=== PATIENT | male | born 1950 | race Caucasian/White ===

== ENCOUNTER 2023-08-02 13:50 | Outpatient (RCR) | payer MEDICARE, SELFPAY ==
--- NOTE | 2023-08-02 15:51 | PT.OPEX ---
PT [place] Outpatient Eval PT [facility] Outpatient Eval Start: 08/02/23 15:19 Freq: Status: Active Protocol: Document 08/02/23 15:19 CONSTANTINO (Rec: 08/02/23 15:33 CONSTANTINO [id number]) E-signed By Rosemary Garcia DPT Physical Therapy Outpatient Evaluation Insurance Information Recert Due Date 10/31/23 Insurance Name Medicare B,[facility] Medical Diagnosis L hip OA L JEFRY scheduled for 08/11/23 Treating Diagnosis L hip pain, impaired L hip ROM , impaired L hip/LE mobility/ strength, limping/antalgic gait Subjective Subjective Patient reports chronic L hip pain since last Nov leading to L JEFRY scheduled for 08/11/23. Patient reports L hip/thigh pain with movement of L hip, lifting L LE. He is not using an AD for walking. Reports increased pain with stairs but he is able to perform them with reciprocal pattern. Pain range 0-5/10. States his has had multiple joint replacements including both hips and both knees so they already have the equipment needed. Patient reports having FWW, crutches, cane to use after surgery. They also have commode chair, shower chair, acid bleacher, sock aid. There is a ramp to enter the home. Once inside he is planning to stay on the main level until he is moving better to perform stairs to the bedroom. Bathroom on the main level has a walk in shower. Date of Last Physician Visit 06/21/23 Date of Surgery (If applicable) 08/11/23 Current Work Status Retired Assessment Assessment/Impression Patient is a 73 year old male with L hip pain, impaired L hip ROM, impaired L hip/LE mobility/strength, limping/ antalgic gait leading to L JEFRY scheduled for 08/11/23. Patient seen in PT today for pre-op session to provide education/information on upcoming JEFRY surgery, safety information/HO, equipment instruction including use of FWW, and instruction in JEFRY exercises. Handouts issued for exercises, patient to perform them leading up to surgery. Reviewed PT/OT plan during hospital stay and patient is scheduled for OP PT post op in [place]. Patient reports having a FWW, crutches, and a cane for use after surgery. He also has a commode chair, shower chair, acid bleacher, and sock aid from his previous joint replacement surgeries. Patient reports a ramp to enter the home. Once inside he can stay on the main level until he is moving better to do stairs to the bedroom. Bathroom on the main level has a walk in shower. Spouse is available to assist as needed after surgery. Patient was seen today for pre-op session only. He is scheduled for post op rehab in [place]. No further PT scheduled at this clinic. Plan of Care Rehabilitation Potential Good Physical Therapy Goals 1. Patient will be educated in JEFRY pre/post-op safety, mobility, and exercises with HOs provided within one visit with patient going to post op rehab in [place] after L JEFRY surgery on 08/11/23. Coordination/Communication With Referral Source Treatment Plan/Direct Interventions Therapeutic Exercises Frequency/Duration one JEFRY pre-op session Patient is scheduled for JEFRY post op rehab in [place]. Patient Will Be Discharged From Therapy Completion of LTG(s),Skills Plateau,Independent w/HEP, Independently Progressing Evaluation Billing Untimed Code Treatment Minutes 32 Complexity Low Certification Information Initial Certification Date 08/02/23 Ending Certification Date 10/31/23 Provider Signature Shows Agreement With POC & Medical Necessity Physician Signature & Date Requested Please Sign/Date Here Physician Comment/Change : Physician NPI Number #
== END 2023-11-30 23:59 | disposition home or self-care (01) ==
PROVIDERS: PCP Family Medicine; Visit Provider Orthopaedic Surgery Sports Medicine
DX: M16.12 Unilateral primary osteoarthritis, left hip (principal); M25.552 Pain in left hip; R26.89 Other abnormalities of gait and mobility; Z74.09 Other reduced mobility; R29.898 Other symptoms and signs involving the musculoskeletal system; Z51.89 Encounter for other specified aftercare
CPT/HCPCS: 97161

== ENCOUNTER 2023-11-03 07:55 | Day surgery (SDC) | payer MEDICARE, SELFPAY ==
[2023-11-03] VITALS (30 sets, daily range): BP systolic 71–133; BP diastolic 41–84; PULSE 56–82; RESP 12–18; TEMP 35.6–36.7; O2SAT 94–100; BMI 28.2
--- OUTSIDE RECORDS SUMMARY | 2023-11-03 07:58 | XMS_ITS | Clinical Summary ---
Author Name Unknown [facility] Address [address] [place] [address] Care Team Providers Care Sexual Assault Social Worker Name Role Phone Hector Sandhu MD Primary Care Provider [phone] Source Comments You are receiving this document as you are listed as the primary care provider,follow-up provider, or the patient has been referred to you for consultation.This is in compliance with the Medicare and[facility] EHR Incentive Program,which states Providers who transition their patient to another setting of careor provider of care or refers their patient to another provider of care shouldprovide summary care record for each transition of care or referral. [facility] Allergies Active Allergy Reactions Criticality Noted Date Comments Bee Venom Medications Medication Sig Dispensed Refills Start Date End Date Status EPINEPHrine (EPIPEN) 0.3 MG/0.3ML JORDAN injection Inject 0.3 mL intramuscularly once as needed for 1 dose. into thigh as directed for and/or potential for an allergic reaction 2 Each 1 03/25/2011 Active aspirin 325 MG tablet Take 325 mg by mouth every 6 hours as needed. Active Ibuprofen 200 MG capsule Take 400 mg by mouth. 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 05/01/2005 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 Overview: Other testicular hypofunction (HRC) Immunizations Name Administration Dates Next Due Flu Vac (3+ yrs) 05/17/2012, 1,05/10/2003, 001,05/18/2000 Influenza IIV4 (Quadrivalent ) 0.5mL (16713) 03/20/2013 Pfizer Monovalent 12+ Purple Top 09/13/2020,08/05 Td 07/30/1993 Tdap 03/23/2006 Varicella 07/22/1999(Deferred: Immune by Erwin cuellar) Family History Medical History Relation Name Comments Cancer, Other Father Cancer, Prostate Father 76 Hearing Loss Father Cataract Mother Hypertension Mother Alcohol/Drug Abuse Brother 2 Hypertension Brother 2 Retinal Detachment Brother 2 Heart disorder Maternal Grandmother Cataract Sister Glaucoma Negative Family History Relation Name Status Comments Father Mother Alive Brother 1 Alive Brother 2 Daughter Alive Maternal Grandmother Sister Alive Son Alive Social History Tobacco Use Types Packs/Day Years Used Date Smoking Tobacco: Never Smokeless Tobacco: Never Alcohol Use Standard Drinks/Week Comments Yes 5.8 (1 standard drink = 0.6 oz p ure alcohol) occasional Sex and Gender Information Value Date Recorded Sex Assigned at Not on file Gender Identity Not on file Sexual Orientation Not on file Last Filed Vital Signs Vital Sign Reading Time Taken Comments Blood Pressure 126/77 05/01/2019 10:04 AM CDT Pulse 54 05/01/2019 10:04 AM CDT Temperature 36.6 ??C (97.8 ??F) 11/08/2013 1:38 PM CD T Respiratory Rate 14 05/17/2012 8:18 AM TEASELER Oxygen Saturation 99% 05/17/2012 8:18 AM TEASELER Inhaled Oxygen Concentration - - Weight 107.5 kg (237 lb) 05/01/2019 10:04 AM CDT Height 188 cm (6' 2) 04/26/2018 10:03 AM CDT Body Mass Index 30.43 04/26/2018 10:03 AM CDT Plan of Treatment Health Maintenance Due Date Last Done Comments Hep C Screening (Preventive Services) 1950 Medicare Annual Wellness Visit 1950 Zoster/Shingles (1 of 2) 1999 Cholesterol 12/08/2016 12/09/2011, 07/07, 05/10/2003, Additional history exists Colonoscopy 06/16/2017 06/16/2012, 06/16/2012 COVID-19 Vaccine ( season) 2023 09/13/2020, 08/23/2020 Influenza (#1) 2023 05/16/2020, 04/05, 05/27/2018, Additional history exists DTaP/Tdap/Td (3 - Tdap) 04/26/2027 04/26/20 17, 03/23/2006, 07/30/1993 Pneumococcal 65+ Yrs Completed 04/28/2016, 03/13/20 15 HepA Aged Out No longer eligi ble based on patient's age to complete this topic HepB Aged Out No longer eligi ble based on patient's age to complete this topic Hib Aged Out No longer eligi ble based on patient's age to complete this topic IPV (Polio) Aged Out No longer eligi ble based on patient's age to complete this topic MCV4 Aged Out No longer eligi ble based on patient's age to complete this topic Medical Devices Implanted Type Area [place] [employer] Device Identifier Shelf Expiration Date Model / Serial / Lot Plug Heria [employer] Perfix 1.6 - [id number] Implanted:Qty: 1 on 04/05/2006 at [facility] Right: [employer] [id number] / / [id number] Plug Heria [employer] Perfix 1.6 - [id number] Implanted:Qty: 1 on 04/05/2006 at [facility] Left: [employer] [id number] / / [id number] Procedures Procedure Name Priority Date/Time Associated Diagnosis Comments COLONOSCOPY Routine 06/16/2012 9:40 AM TEASELER Screen for colon cancer LIPID PANEL & DIRECT LDL (IF NEEDED) Routine 12/09/2011 9:59 AM CDT Screening cholesterol level from Last 3 Months or Most Recently Relevant to Health Maintenance Results * COLONOSCOPY [[id number]] (06/16/2012 9:40 AM TEASELER) 06/16/2012 9:40 AM TEASELER Narrative GI ([facility]) - 06/16/2012 10:27 AM TEASELER Indications: ? Screening for colorectal malignant neoplasm Providers: ? Sonny Medina MD, Bruna Hastings RN Referring MD: ?Ovidio Gray MD Medicines: ? Fentanyl IV 100 mcgs, Versed/Midazolam IV 2 mgs Complications: ? No immediate complications. Procedure: ? Pre-Anesthesia Assessment: ? - Prior to the procedure, a History and Physical was ? performed, and patient medications, allergies and ? sensitivities have been reviewed. The patient's ? tolerance of previous anesthesia has been reviewed. ? - The risks and benefits of the procedure and the ? sedation options and risks were discussed with the ? patient. All questions were answered and informed ? consent was obtained. ? - ASA Grade Assessment: II - A patient with mild ? systemic disease. ? After I obtained informed consent, the scope was ? passed under direct vision. Prior to sedation, ? patient identity and procedure was reverified. ? Throughout the procedure, the patient's blood ? pressure, pulse, and oxygen saturations were ? monitored continuously. The Colonoscope was ? introduced through the anus and advanced to the ? cecum, identified by appendiceal orifice & ileocecal ? valve. The colonoscopy was performed without ? difficulty. The patient tolerated the procedure well. ? The quality of the bowel preparation was good. Findings: ? The digital rectal exam was abnormal. Findings include non-thrombosed ? external hemorrhoids. A sessile polyp was found in the cecum. The ? polyp was 6 mm in size. The polyp was removed with a cold snare. ? Resection and retrieval were complete. Two benign appearing sessile ? polyps were found in the rectum and in the descending colon. The ? polyps were 3 to 4 mm in size. These polyps were removed with a cold ? biopsy forceps. Resection and retrieval were complete. The ? retroflexed view of the distal rectum and anal verge was normal and ? showed no anal or rectal abnormalities. Impression: ?- Rectal exam revealed non-thrombosed external ? hemorrhoids. ? - One 6 mm polyp in the cecum. Resected and retrieved. ? - Two benign appearing 3 to 4 mm polyps in the rectum ? and in the descending colon. Resected and retrieved. ? - The distal rectum and anal verge are normal on ? retroflexion view. Recommendation: ?- Await pathology results. ? - High fiber diet. ? - Repeat colonoscopy in 3 - 5 years for surveillance ? based on pathology results. Procedure Code(s): ?? --- Professional --- ? 61507, Colonoscopy, flexible, proximal to splenic ? flexure; with removal of tumor(s), polyp(s), or other ? lesion(s) by snare technique ? 46608, 59, Colonoscopy, flexible, proximal to splenic ? flexure; with biopsy, single or multiple Diagnosis Code(s): ?? --- Professional --- ? V76.51, Special screening for malignant neoplasms of ? colon ? 211.4, Benign neoplasm of rectum and anal canal ? 211.3, Benign neoplasm of colon ? 455.3, External hemorrhoids without mention of ? complication CPT (R) 2011 [employer]. All Rights Reserved. The codes documented in this report are preliminary and upon drug abuse worker review may be revised to meet current compliance requirements. Attending Participation: Sonny Medina MD 06/16/2012 10:24 AM Number of Addenda: 0 Note Initiated On: 06/16/2012 9:40 AM Procedure Note Sonny Medina MD - 06/16/2012 Indications: Screening for colorectal malignant neoplasm Providers: Sonny Medina MD, Bruna Hastings RN Referring MD: Ovidio Gray MD Medicines: Fentanyl IV 100 mcgs, Versed/Midazolam IV 2 mgs Complications: No immediate complications. Procedure: Pre-Anesthesia Assessment: - Prior to the procedure, a History and Physical was performed, and patient medications, allergies and sensitivities have been reviewed. The patient's tolerance of previous anesthesia has been reviewed. - The risks and benefits of the procedure and the sedation options and risks were discussed with the patient. All questions were answered and informed consent was obtained. - ASA Grade Assessment: II - A patient with mild systemic disease. After I obtained informed consent, the scope was passed under direct vision. Prior to sedation, patient identity and procedure was reverified. Throughout the procedure, the patient's blood pressure, pulse, and oxygen saturations were monitored continuously. The Colonoscope was introduced through the anus and advanced to the cecum, identified by appendiceal orifice & ileocecal valve. The colonoscopy was performed without difficulty. The patient tolerated the procedure well. The quality of the bowel preparation was good. Findings: The digital rectal exam was abnormal. Findings include non-thrombosed external hemorrhoids. A sessile polyp was found in the cecum. The polyp was 6 mm in size. The polyp was removed with a cold snare. Resection and retrieval were complete. Two benign appearing sessile polyps were found in the rectum and in the descending colon. The polyps were 3 to 4 mm in size. These polyps were removed with a cold biopsy forceps. Resection and retrieval were complete. The retroflexed view of the distal rectum and anal verge was normal and showed no anal or rectal abnormalities. Impression: - Rectal exam revealed non-thrombosed external hemorrhoids. - One 6 mm polyp in the cecum. Resected andretrieved. - Two benign appearing 3 to 4 mm polyps in the rectum and in the descending colon. Resected andretrieved. - The distal rectum and anal verge are normal on retroflexion view. Recommendation: - Await pathology results. - High fiber diet. - Repeat colonoscopy in 3 - 5 years for surveillance based on pathology results. Procedure Code(s): --- Professional --- 45103, Colonoscopy, flexible, proximal to splenic flexure; with removal of tumor(s), polyp(s), or other lesion(s) by snare technique 19572, 59, Colonoscopy, flexible, proximal to splenic flexure; with biopsy, single or multiple Diagnosis Code(s): --- Professional --- V76.51, Special screening for malignant neoplasms of colon 211.4, Benign neoplasm of rectum and anal canal 211.3, Benign neoplasm of colon 455.3, External hemorrhoids without mention of complication CPT (R) 2011 [employer]. All Rights Reserved. The codes documented in this report are preliminary and upon drug abuse worker review may be revised to meet current compliance requirements. Attending Participation: Sonny Medina MD 06/16/2012 10:24 AM Number of Addenda: 0 Note Initiated On: 06/16/2012 9:40 AM Sonny Medina MD [facility] ([facility]) [place], [place] * (ABNORMAL) LIPID PANEL AND DIRECT LDL(IF NEEDED) (12/09/2011 9:59 AM CDT) Cholesterol 220(H) 0 - 199 mg/dl [facility] Triglyceride 103 0 - 149 mg/dl [facility] HDL 43 >40 mg/dl [facility] LDL, Calc. 156(H) 0 - 129 mg/dl [facility] Non HDL Chol, Calc 177 mg/dl [facility] Hours Fasting 12 hours [facility] 12/09/2011 9:59 AM CDT 12/09/2011 10:22 AM CDT Ovidio Gray MD LAB_[facility] [address] [phone] from Last 3 Months or Most Recently Relevant to Health Maintenance Care Teams Sexual Assault Social Worker Relationship Specialty Start Date End Date Hector Sandhu MD [address] [place] [address] [place] [phone] PCP - General Family Practice 08/14/19
--- OUTSIDE RECORDS SUMMARY | 2023-11-03 07:58 | XMS_ITS | Encounter Summary ---
Author Name Unknown Organization [facility] Address [address] [place] [address] Care Team Providers Care Reference Investigator Name Role Phone Hector Sandhu MD Primary Care Provider [phone] Encounter Details Date Type Department Care Team (Late st Contact Info) Description 05/08/2021 Refill Order [facility] [address] [place] [address]. [place], [place] [id number] Roman Stone MD [address] [place], [place] [id number] Social History Tobacco Use Types Packs/Day Years Used Date Smoking Tobacco: Never Smokeless Tobacco: Never Alcohol Use Standard Drinks/Week Comments Yes 5.8 (1 standard drink = 0.6 oz p ure alcohol) occasional Sex and Gender Information Value Date Recorded Sex Assigned at Not on file Gender Identity Not on file Sexual Orientation Not on file documented as of this encounter Nursing Notes * Interface, Out Surescripts Prov Query - 05/08/2021 3:46 AM CDT ORDER THE FOLLOWING: - PROLACTIN LEVEL (SERUM): Pended to encounter. SCHEDULE THE FOLLOWING: - OFFICE VISIT BY: Now (Due as of 05/01/2021 for cabergoline (DOSTINEX) 0.5 MG tablet) - PROLACTIN LEVEL (SERUM) BY: 05/16/2021 (Coming due as of 05/16/2021 for cabergoline (DOSTINEX) 0.5 MG tablet) - LAST QUALIFYING VISIT IN ENDOCRINOLOGY WITH ROMAN STONE: 05/06/2020 - NEXT SCHEDULED VISIT: None - NEXT LAB APPOINTMENT: None Powered by [facility] by [email or web address], Reference: [id number], 05/08/2021 3:46:12 AM CDT, Pool:EMILE SANTORO RN ([id number]) * Interface, Out [employer]Botix Prov Query - 05/08/2021 3:46 AM CDT The following lab order(s) may be associated with the Result Note below: PROLACTIN Notes recorded by Roman Stone MD on 05/29/2020 at 1:04 PM IT INTEGRATION ARCHITECT Prolactin is down, which is good to see. All other tests are normal. I think we should stay with the current cabergoline dosing for now and repeat in 1 year or if things change. Roman Stone MD 05/29/2020, 1:03 PM * Interface, Out SureRevuzeripts Prov Query - 05/08/2021 3:46 AM CDT The following lab order(s) may be associated with the following Patient Result Comment (Entered by Roman Stone MD at 05/29/2020 2:04 PM): PROLACTIN Prolactin is down, which is good to see. All other tests are normal. I think we should stay with the current cabergoline dosing for now and repeat in 1 year or if things change.Roman Stone MD 05/29/2020, 1:03 PM documented in this encounter Plan of Treatment Not on file documented as of this encounter Visit Diagnoses Diagnosis Encounter for long-term (current) use of medications- Primary Encounter for long-term (current) use of other medications documented in this encounter Care Teams Reference Investigator Relationship Specialty Start [place] [id number] [place] [phone] PCP - General Family Practice 08/14/19 documented as of this encounter
--- OUTSIDE RECORDS SUMMARY | 2023-11-03 07:58 | XMS_ITS | Encounter Summary ---
Author Name Unknown Organization [facility] Address [address] [place] [address] Care Team Providers Care Consulting Project Director Name Role Phone Hector Sandhu MD Primary Care Provider [phone] Encounter Details Date Type Department Care Team (Late st Contact Info) Description 05/17/2019 Correspondence [facility] Radiology [address] [place] [address] Radiology, Provider MRI SAFETY AND HEALTH HISTORY QUESTIONNAIRE Social History Tobacco Use Types Packs/Day Years Used Date Smoking Tobacco: Never Smokeless Tobacco: Never Alcohol Use Standard Drinks/Week Comments Yes 5.8 (1 standard drink = 0.6 oz p ure alcohol) occasional Sex and Gender Information Value Date Recorded Sex Assigned at Not on file Gender Identity Not on file Sexual Orientation Not on file documented as of this encounter Plan of Treatment Not on file documented as of this encounter Visit Diagnoses Not on filedocumented in this encounter Care Teams Consulting Project Director Relationship Specialty Start Date [place] Hector [place]hu [place] [id number] [place] [address] [place] [phone] PCP - General Family Practice 08/14/19 documented as of this encounter
--- OUTSIDE RECORDS SUMMARY | 2023-11-03 07:59 | XMS_ITS | Encounter Summary ---
Author Name Unknown Organization [facility] Address [address] [place] [address] Care Team Providers Care Control Systems Specialist Name Role Phone Hector Sandhu MD Primary Care Provider [phone] Encounter Details Date Type Department Care Team (Latest Contact Info) Description 09/06/1997 Orders Only Ovidio Gray MD Social History Tobacco Use Types Packs/Day Years Used Date Smoking Tobacco: Never Assessed Sex and Gender Information Value Date Recorded Sex Assigned at Not on file Gender Identity Not on file Sexual Orientation Not on file documented as of this encounter Plan of Treatment Not on file documented as of this encounter Visit Diagnoses Not on filedocumented in this encounter Care Teams Control Systems Specialist Relationship Specialty [place] [address] [place] [phone] PCP - General Family Practice 08/14/19 documented as of this encounter
--- OUTSIDE RECORDS SUMMARY | 2023-11-03 07:59 | XMS_ITS | Encounter Summary ---
Author Name Unknown Organization [facility] Address [address] [place] [address] Care Team Providers Care Zipper Slide Attacher Name Role Phone Hector Sandhu MD Primary Care Provider [phone] Encounter Details Date Type Department Care Team (Late st Contact Info) Description 06/16/2012 Consent for Procedure/Treatme nt [facility] INFORMED CONSENT RECORD Social History Tobacco Use Types Packs/Day Years Used Date Smoking Tobacco: Never Alcohol Use Standard Drinks/Week Comments Yes 5.8 (1 standard drink = 0.6 oz p ure alcohol) occasional Sex and Gender Information Value Date Recorded Sex Assigned at Not on file Gender Identity Not on file Sexual Orientation Not on file documented as of this encounter Progress Notes * [facility], PROVIDER - 06/16/2012 12:00 AM CST Y LEVEL BUSINESS ANALYST documented in this encounter Plan of Treatment Not on file documented as of this encounter Visit Diagnoses Not on filedocumented in this encounter Care Teams Zipper Slide Attacher Relationship Specialty [place] [id number] [place] [phone] PCP - General Family Practice 08/14/19 documented as of this encounter
--- OUTSIDE RECORDS SUMMARY | 2023-11-03 07:59 | XMS_ITS | Encounter Summary ---
Author Name Unknown Organization [facility] Address [address] [place] [address] Care Team Providers Care Computational Physicist Name Role Phone Hector Sandhu MD Primary Care Provider [phone] Encounter Details Date Type Department Care Team (Late st Contact Info) Description 06/26/2015 Scanned History External to Transferred Record, Provider [facility] Social History Tobacco Use Types Packs/Day Years [...] on filedocumented in this encounter Care Teams Computational Physicist Relationship Specialty [place] [address] [place] [phone] PCP - General Family Practice 08/14/19 documented as of this encounter
--- OUTSIDE RECORDS SUMMARY | 2023-11-03 07:59 | XMS_ITS | Encounter Summary ---
Author Name Unknown Organization [facility] Address [address] [place] [address] Care Team Providers Care Vp Clinical Research Name Role Phone Hector Sandhu MD Primary Care Provider [phone] Encounter Details Date Type Department Care Team (Latest Contact Info) Description 02/21/1997 Office Visit Ovidio Gray MD Social History Tobacco Use Types Packs/Day Years Used Date Smoking Tobacco: Never Assessed Sex and Gender Information Value Date Recorded Sex Assigned at Not on file Gender Identity Not on file Sexual Orientation Not on file documented as of this encounter Progress Notes * Ovidio Gray - 02/21/1997 12:00 AM CDTCalled Mr. Nelson regarding his recent prolactin level. This was elevated at 46.5. Last year his prolactin had been 3.6 and in 1993 it had been 20.4. 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 I discussed the case by phone with Dr. Bey of endocrinology prior to calling the patient. She felt at this time it would not be necessary to repeat his MRI but we should follow his prolactin levels more closely, probably an every four to six month range. If we had continued increase and certainly a doubling of the prolactin level repeating the MRI at that time would be more likely to show microadenoma. I discussed this with the patient and he will f/u in four months for repeat level. cc: documented in this encounter Plan of Treatment Not on file documented as of this encounter Visit Diagnoses Not on filedocumented in this encounter Care Teams Vp Clinical Research Relationship Specialty Start Date End Date Hector Sandhu MD [address] [place] [phone] PCP - General Family Practice 08/14/19 documented as of this encounter
--- OUTSIDE RECORDS SUMMARY | 2023-11-03 07:59 | XMS_ITS | Encounter Summary ---
Author Name Unknown Organization [facility] Address [address] [place] [address] Care Team Providers Care Commercial Account Executive Name Role Phone Hector Sandhu MD Primary Care Provider [phone] Encounter Details Date Type Department Care Team (Late st Contact Info) Description 03/20/2013 Correspondence None No Primary/Referring, Phy MEDICAL EQUIPMENT RECEIPT Social History Tobacco Use Types Packs/Day Years Used Date Smoking Tobacco: Never Smokeless Tobacco: Never Alcohol Use Standard Drinks/Week Comments Yes 5.8 (1 standard drink = 0.6 oz p ure alcohol) occasional Sex and Gender Information Value Date Recorded Sex Assigned at Not on file Gender Identity Not on file Sexual Orientation Not on file documented as of this encounter Progress Notes * No Primary/Referring, Phy - 03/20/2013 12:00 AM CDT documented in this encounter Plan of Treatment Not on file documented as of this encounter Visit Diagnoses Not on filedocumented in this encounter Care Teams Commercial Account Executive Relationship Specialty [place] [address] [place] [phone] PCP - General Family Practice 08/14/19 documented as of this encounter
--- OUTSIDE RECORDS SUMMARY | 2023-11-03 07:59 | XMS_ITS | Encounter Summary ---
Author Name Unknown Organization [facility] Address [address] [place] [address] Care Team Providers Care Radiology Teacher Name Role Phone Hector Sandhu MD Primary Care Provider [phone] Encounter Details Date Type Department Care Team (Latest Contact Info) Description 03/08/1998 Orders Only Basilia Rodríguez MD Social History Tobacco Use Types Packs/Day Years Used Date Smoking Tobacco: Never Assessed Sex and Gender Information Value Date Recorded Sex Assigned at Not on file Gender Identity Not on file Sexual Orientation Not on file documented as of this encounter Plan of Treatment Not on file documented as of this encounter Visit Diagnoses Not on filedocumented in this encounter Care Teams Radiology Teacher Relationship Specialty [place] [address] [place] [phone] PCP - General Family Practice 08/14/19 documented as of this encounter
--- OUTSIDE RECORDS SUMMARY | 2023-11-03 07:59 | XMS_ITS | Encounter Summary ---
Author Name Unknown Organization [facility] Address [address] [place] [address] Care Team Providers Care Podiatric Surgeon Name Role Phone Hector Sandhu MD Primary Care Provider [phone] Encounter Details Date Type Department Care Team (Latest Contact Info) Description 07/11/1998 Orders Only Basilia Rodríguez MD Social History [...] on filedocumented in this encounter Care Teams Podiatric Surgeon Relationship Specialty [place] [address] [place] [phone] PCP - General Family Practice 08/14/19 documented as of this encounter
--- OUTSIDE RECORDS SUMMARY | 2023-11-03 07:59 | XMS_ITS | Encounter Summary ---
Author Name Unknown Organization [facility] Address [address] [place] [address] Care Team Providers Care Collision Estimator Name Role Phone Hector Sandhu MD Primary Care Provider [phone] Encounter Details Date Type Department Care Team (Latest Contact Info) Description 12/07/1997 Orders Only Amber Goodwin Social History Tobacco Use Types Packs/Day Years Used Date Smoking Tobacco: Never Assessed Sex and Gender Information Value Date Recorded Sex Assigned at Not on file Gender Identity Not on file Sexual Orientation Not on file documented as of this encounter Plan of Treatment Not on file documented as of this encounter Visit Diagnoses Not on filedocumented in this encounter Care Teams Collision Estimator Relationship Specialty [place] [address] [place] [phone] PCP - General Family Practice 08/14/19 documented as of this encounter
--- OUTSIDE RECORDS SUMMARY | 2023-11-03 07:59 | XMS_ITS | Encounter Summary ---
Author Name Unknown Organization [facility] Address [address] [place] [address] Care Team Providers Care Fowl Blood Tester Name Role Phone Hector Sandhu MD Primary Care Provider [phone] Encounter Details Date Type Department Care Team (Latest Contact Info) Description 10/16/1997 Orders Only Hay Yang MD [address] [place], [place] [address] Social History Tobacco Use Types Packs/Day Years Used Date Smoking Tobacco: Never Assessed Sex and Gender Information Value Date Recorded Sex Assigned at Not on file Gender Identity Not on file Sexual Orientation Not on file documented as of this encounter Plan of Treatment Not on file documented as of this encounter Visit Diagnoses Not on filedocumented in this encounter Care Teams Fowl Blood Tester Relationship Specialty Start Date End Date Hector Sandhu MD [address] [place] [address] [place] [phone] PCP - General Family Practice 08/14/19 documented as of this encounter
--- OUTSIDE RECORDS SUMMARY | 2023-11-03 07:59 | XMS_ITS | Encounter Summary ---
Author Name Unknown Organization [facility] Address [address] [place] [address] Care Team Providers Care Nail Tech Name Role Phone Hector Sandhu MD Primary Care Provider [phone] Encounter Details Date Type Department Care Team (Latest Contact Info) Description 12/18/1999 Orders Only Ovidio Gray MD Social History [...] on filedocumented in this encounter Care Teams Nail Tech Relationship Specialty [place] [address] [place] [phone] PCP - General Family Practice 08/14/19 documented as of this encounter
--- OUTSIDE RECORDS SUMMARY | 2023-11-03 07:59 | XMS_ITS | Encounter Summary ---
Author Name Unknown Organization [facility] Address [address] [place] [address] Care Team Providers Care Kitchen Assistant Name Role Phone Hector Sandhu MD Primary Care Provider [phone] Encounter Details Date Type Department Care Team (Latest Contact Info) Description 11/28/1997 Orders Only Basilia Rodríguez MD Social History [...] on filedocumented in this encounter Care Teams Kitchen Assistant Relationship Specialty [place] [address] [place] [phone] PCP - General Family Practice 08/14/19 documented as of this encounter
--- OUTSIDE RECORDS SUMMARY | 2023-11-03 07:59 | XMS_ITS | Encounter Summary ---
Author Name Unknown Organization [facility] Address [address] [place] [address] Care Team Providers Care Fire Extinguisher Tester Name Role Phone Hector Sandhu MD Primary Care Provider [phone] Encounter Details Date Type Department Care Team (Latest Contact Info) Description 10/08/1997 Orders Only Amber Goodwin Social History Tobacco [...] on filedocumented in this encounter Care Teams Fire Extinguisher Tester Relationship Specialty [place] [address] [place] [phone] PCP - General Family Practice 08/14/19 documented as of this encounter
--- OUTSIDE RECORDS SUMMARY | 2023-11-03 07:59 | XMS_ITS | Encounter Summary ---
Author Name Unknown Organization [facility] Address [address] [place] [address] Care Team Providers Care Chaser Tar Name Role Phone Hector Sandhu MD Primary Care Provider [phone] Encounter Details Date Type Department Care Team (Latest Contact Info) Description 10/13/1999 Orders Only Hay Yang MD [address] [place], [place] [address] Social History Tobacco Use Types Packs/Day Years Used Date Smoking Tobacco: Never Assessed Sex and Gender Information Value Date Recorded Sex Assigned at Not on file Gender Identity Not on file Sexual Orientation Not on file documented as of this encounter Plan of Treatment Not on file documented as of this encounter Visit Diagnoses Not on filedocumented in this encounter Care Teams Chaser Tar Relationship Specialty Start Date End Date Hector Sandhu MD [address] [place] [address] [place] [phone] PCP - General Family Practice 08/14/19 documented as of this encounter
--- OUTSIDE RECORDS SUMMARY | 2023-11-03 07:59 | XMS_ITS | Encounter Summary ---
Author Name Unknown Organization [facility] Address [address] [place] [address] Care Team Providers Care Manager Ems Name Role Phone Hector Sandhu MD Primary Care Provider [phone] Encounter Details Date Type Department Care Team (Late st Contact Info) Description 04/07/1999 Orders Only [facility] [address] [place] [address] Nu Alvarez MD Social History Tobacco Use Types Packs/Day Years Used Date Smoking Tobacco: Never Assessed Sex and Gender Information Value Date Recorded Sex Assigned at Not on file Gender Identity Not on file Sexual Orientation Not on file documented as of this encounter Plan of Treatment Not on file documented as of this encounter Visit Diagnoses Not on filedocumented in this encounter Care Teams Manager Ems Relationship Specialty Start Date End Date Hector Sandhu [place] [id number] [place] [address] [place] [phone] PCP - General Family Practice 08/14/19 documented as of this encounter
--- OUTSIDE RECORDS SUMMARY | 2023-11-03 08:00 | XMS_ITS | Continuity of Care Document ---
Author Name Unknown Organization [facility] Address [address] [place] [address] Care Team Providers Care Livestock Trucker Name Role Phone Hector Sandhu M.D., Ph.D. Primary Care Provider Source Comments Patient records contain information from all sites at [facility]. For routine questions regarding patient records, call [phone] during business hours, M-F 8:00 AM - 5:00 PM Central Time. Record requests for emergency care only can be directed to [phone] at any time.[facility] Encounters Date Type Department Care Team Description 10/28/2023 1:10 PM CDT Silent Schedule Department of Ophthalmology in [address] [phone] Justin Caldwell M.D. 10/28/2023 1:15 PM CDT Ancillary Procedure Department of Ophthalmology in [address] [phone] Justin Caldwell M.D. Prolactinoma (HCC) (Primary Dx); Cataract Senile Nuclear Sclerosis Bilateral Discharge Disposition: Home or Self Care 10/19/2023 3:30 PM CDT Office Visit Department of Family Medicine, [facility], in [address] [phone] Hector Sandhu M.D., Ph.D. Preoperative Exam (Primary Dx); Primary Osteoarthritis Hip Left; History Of Falling Discharge Disposition: Home or Self Care 10/01/2023 12:05 AM CDT Ancillary Procedure Department of Dermatology 10/01/2023 Ancillary Procedure Department of Dermatology 10/01/2023 8:00 AM CDT Procedure visit Department of Dermatology in [place], [place] [address] [place] [phone] Vincent Culp M.D. 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) Discharge Disposition: Home or Self Care 09/15/2023 1:20 PM CDT Office Visit Department of Dermatology in [place], [place] [address] [place] [address] Josy Fishman M.D. 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 08/19/2023 10:00 AM [facility] - 08/19/2023 11:59 PM [facility] Hospital Encounter Department of Laboratory Medicine in [address] [address] Hector Sandhu M.D., Ph.D. Prolactinoma (HCC) Discharge Disposition: Home or Self Care 08/06/2023 Clinical Communication Department of Dermatology in [place], [place] [address] [place] [phone] Prescheduling, Provider Appt Request 08/06/2023 Orders Only Department of Dermatology in [address] [address] Werner Nation M.B.B.S., M.D. 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) (Primary Dx) 08/06/2023 Clinical Communication Department of Dermatology in [place], [place] [address] [place] [phone] Werner Nation M.B.B.S., M.D. 08/06/2023 Orders Only Department of Dermatology in [place], [place] [address] [place] [address] Werner Nation M.B.B.S., M.D. 07/30/2023 Ancillary Procedure Department of Dermatology 07/30/2023 4:40 PM BLOCK FEEDER Comprehensive Visit Department of Dermatology in [place], [place] [address] [place] [address] Werner Nation M.B.B.S., M.D. Cancer Skin Basal Cell Personal History (Primary Dx); Lesion Skin Face; Keratosis Actinic [L57.0] 07/23/2023 3:00 PM BLOCK FEEDER Comprehensive Visit Department of Family Medicine, [facility], in [address] [address] Hector Sandhu M.D., Ph.D. Annual Medicare Examination Return (Primary Dx); Preoperative Exam; Primary Osteoarthritis Hip Left; History Of Falling; Overweight Body Mass Index 25-29.9 Adult; Prolactinoma (HCC); Hypercholesterolemi a; Lesion Skin Face Discharge Disposition: Home or Self Care 07/19/2023 4:57 PM BLOCK FEEDER - 07/19/2023 11:59 PM BLOCK FEEDER Hospital Encounter Department of Laboratory Medicine in [address] [address] Hector Sandhu M.D., Ph.D. Preoperative Exam; Hyperlipidemia; Screening Examination Prostate Cancer; Insulin Resistance, Unspecified Discharge Disposition: Home or Self Care 06/04/2023 10:13 AM BLOCK FEEDER - 06/04/2023 11:59 PM BLOCK FEEDER Hospital Encounter Department of Radiology in [address] [address] Nadia Cuevas APRN, C.N.P., D.N.P. Pain Hip Left Discharge Disposition: Home or Self Care 06/04/2023 10:00 AM BLOCK FEEDER Office Visit Department of Family Medicine, [facility], in [address] [address] Nadia Cuevas APRN, C.N.P., D.N.P. Pain Hip Left (Primary Dx); History Of Falling Discharge Disposition: Home or Self Care 05/06/2023 3:30 PM CDT Immunization Department of Family [facility], [facility], in [address] [phone] Hector Sandhu M.D., Ph.D. Discharge Disposition: Home or Self Care 04/17/2023 Refill Department of [facility], [facility], [address] [phone] Hector Sandhu M.D., Ph.D. Med Refill 03/09/2023 Orders Only Department of Neurologic Surgery in [address] [address] Preeti Swift R.N. Adenoma Pituitary (HCC) (Primary Dx) 02/16/2023 Orders Only Department of Family Medicine, [facility], in [address] [phone] Hector Sandhu M.D., Ph.D. Prolactinoma (HCC) (Primary Dx) 02/16/2023 10:00 AM CDT Immunization Department of [facility], [facility], in [address] [phone] Hector Sandhu M.D., Ph.D. Need Vaccine Immunization Hepatitis A (Primary Dx) Discharge Disposition: Home or Self Care 02/16/2023 10:02 AM CDT - 02/16/2023 11:59 PM CDT Hospital Encounter Department of Laboratory Medicine in [address] [place] [phone] Hector Sandhu M.D., Ph.D. Prolactinoma (HCC) Discharge Disposition: Home or Self Care 02/12/2023 3:30 PM CDT Office Visit Department of Family Medicine, [facility], [address] [address] Yessy Alvarez APRN, C.N.P. Puncture Wound Without Foreign Body Of Left Index Finger Without Damage To Nail Sequela (Primary Dx) Discharge Disposition: Home or Self Care 02/12/2023 Nurse Triage Department of [facility], [facility], in [address] [address] Cammie Santoyo R.N. Puncture Wound 12/14/2022 Orders Only Department of [facility], [facility], in [address] [phone] Hector Sandhu M.D., Ph.D. 12/14/2022 10:21 AM CDT - 12/14/2022 11:59 PM CDT Hospital Encounter Department of Laboratory Medicine in [address] [address] Hector Sandhu M.D., Ph.D. Prolactinoma (HCC) Discharge Disposition: Home or Self Care 11/30/2022 Refill Department of [facility], [facility], in [address] [phone] Hector Sandhu M.D., Ph.D. Med Refill 11/19/2022 8:32 AM CDT - 11/19/2022 11:59 PM CDT Hospital Encounter Department of Radiology in [address] [phone] Christen Rosa APRN, C.N.P., D.N.P. Pain Knee Right Discharge Disposition: Home or Self Care 11/19/2022 8:30 AM CDT Office Visit Department of Orthopedic Surgery in [address] [phone] Arpan Alejo M.D. Christen Rosa APRN, C.N.P., Erwin.N.P. Pain Knee Right (Primary Dx) 11/11/2022 2:00 PM CDT Office Visit Department of Neurologic Surgery in [address] [address] Delta Parrish M.D. Adenoma Pituitary (HCC) (Primary Dx); Prolactinoma (HCC) 11/11/2022 8:14 AM CDT - 11/11/2022 11:59 PM CDT Hospital Encounter Department of Radiology, [facility] in [address] [address] Delta Parrish M.D. Prolactinoma (HCC) Discharge Disposition: Home or Self Care 11/09/2022 11:00 AM CDT Clinical Communication Virtual Review in [address] [address] Pre-visit Intake 10/20/2022 10:20 AM CDT Silent Schedule Department of Ophthalmology in [address] [phone] Justin Caldwell M.D. 10/20/2022 10:00 AM CDT Comprehensive Visit Department of Ophthalmology in [address] [phone] Justin Caldwell M.D. Prolactinoma (HCC) (Primary Dx); Cataract Senile Nuclear Sclerosis Bilateral; Myopia Bilateral; Astigmatism Regular Bilateral; Presbyopia 10/13/2022 1:15 PM CDT Comprehensive Visit Department of Rehabilitation Services in [address] [phone] Hector Sandhu M.D., Ph.D. Nicolasa Eller P.T. Pain Ankle Left 10/06/2022 2:20 PM CDT - 10/06/2022 11:59 PM CDT Hospital Encounter Department of Radiology in [address] [address] Hector Sandhu M.D., Ph.D. Nodule Pulmonary Discharge Disposition: Home or Self Care 10/06/2022 1:30 PM CDT Office Visit Department of Family Medicine, [facility], in [address] [address] Hector Sandhu M.D., Ph.D. Pain Ankle Left (Primary Dx); Prolactinoma (HCC); Nodule Pulmonary Discharge Disposition: Home or Self Care 09/28/2022 9:47 AM CDT - 09/28/2022 11:59 PM CDT Hospital Encounter Department of Laboratory Medicine in [address] [address] Hector Sandhu M.D., Ph.D. Prolactinoma (HCC); Edema; Hyperlipidemia; Screening Examination Prostate Cancer Discharge Disposition: Home or Self Care 07/24/2022 Orders Only Department of Family Medicine, [facility], in [address] [address] Hector Sandhu M.D., Ph.D. Prolactinoma (HCC) (Primary Dx) 07/24/2022 Orders Only Department of Family Medicine, [facility], in [address] [address] Hector Sandhu M.D., Ph.D. 07/22/2022 10:53 AM BLOCK FEEDER - 07/22/2022 11:59 PM BLOCK FEEDER Hospital Encounter Department of Laboratory Medicine in [address] [address] Hector Sandhu M.D., Ph.D. Prolactinoma (HCC) Discharge Disposition: Home or Self Care 06/03/2022 10:45 AM BLOCK FEEDER Nurse Only Department of Family Medicine, [facility], in [address] [address] Hector Sandhu M.D., Ph.D. Eleanor Lyon, L.PValdemar. Nurse Visit (HepB) 05/22/2022 9:30 AM BLOCK FEEDER Ancillary Procedure Department of Gastroenterology 05/22/2022 9:00 AM BLOCK FEEDER - 05/22/2022 9:30 AM BLOCK FEEDER Surgery Department of Gastroenterology in [address] [phone] Hardy Dhaliwal M.D. COLONOSCOPY-a 05/22/2022 9:08 AM BLOCK FEEDER Anesthesia Event Department of Gastroenterology in [address] [phone] Yessy Hall APRN, CRNA Barker, Shelly, M.D. 05/22/2022 8:26 AM BLOCK FEEDER - 05/22/2022 10:06 AM BLOCK FEEDER Hospital Encounter Department of Gastroenterology in [address] [phone] Hardy Dhaliwal M.D. Screening Cancer Colon Discharge Disposition: Home or Self Care 05/18/2022 9:50 AM BLOCK FEEDER - 05/18/2022 11:59 PM BLOCK FEEDER Hospital Encounter Department of Laboratory Medicine in [address] [address] Hector Sandhu M.D., Ph.D. Prolactinoma (HCC) Discharge Disposition: Home or Self Care 05/15/2022 Clinical Communication Department of Gastroenterology in [address] [phone] Kellen Damon, RValdemar. Patient Education 04/29/2022 1:10 PM CDT Immunization Department of Family Medicine, [facility], in [address] [address] Hector Sandhu M.D., Ph.D. Discharge Disposition: Home or Self Care 04/16/2022 Orders Only Department of Family Medicine, [facility], in [address] [phone] Hector Sandhu M.D., Ph.D. Prolactinoma (HCC) 04/16/2022 1:45 PM CDT Office Visit Department of Orthopedic Surgery in [address] [phone] Arpan Alejo M.D. Pain Knee Right (Primary Dx) Discharge Disposition: Home or Self Care 04/15/2022 2:00 PM CDT Office Visit Department of Family Medicine, [facility], in [address] [address] Hector Sandhu M.D., Ph.D. Resistance Insulin (Primary Dx); Prolactinoma (HCC); Benign Prostatic Hyperplasia Without Obstruction; Keratosis Seborrheic; Screening Cancer Colon Discharge Disposition: Home or Self Care 04/06/2022 1:30 PM CDT Comprehensive Visit Section of Infectious Diseases in [place], [place] [address] [place] [phone] Reyna Fox, C.N.P. Counseling Travel And Immunization (Primary Dx) 04/02/2022 11:30 AM CDT Clinical Communication Virtual Review in [place], [place] [address] [place] [address] Pre-visit Intake 03/06/2022 Documentation Division of Endocrinology in [place], [place] [address] [place] [phone] Mauri Marquez Jr., M.D. 03/04/2022 10:20 AM CDT - 03/04/2022 11:59 PM CDT Hospital Encounter Department of Laboratory Medicine in [address] [phone] Mauri Marquez Jr., M.D. Prolactinoma (HCC) Discharge Disposition: Home or Self Care 02/26/2022 Orders Only Division of Endocrinology in [place], [place] [address] [place] [phone] Mauri Marquez Jr., M.D. Prolactinoma (HCC) (Primary Dx) 01/02/2022 10:00 AM CDT Office Visit Department of Orthopedic Surgery in [address] [phone] Christen Rosa APRN, C.NAry, D.N.P. Pain Knee Right (Primary Dx) 12/22/2021 Clinical Communication Department of [address] [address] Melissa Kelly D.N.P., M.S., R.N. 12/22/2021 Orders Only Department of Internal Medicine in [address] [phone] Maria De Jesus Blancas APRN, C.N.Bethany., D.N.P. 12/22/2021 Clinical Communication Department of [address] [address] Janie Oliva R.N. COVID Treatment Review 12/22/2021 Orders Only Department of [facility], [facility], in [address] [phone] Hector Sandhu M.D., Ph.D. COVID-19 Infection (Primary Dx) 12/22/2021 10:45 AM CDT Internal E-Consult Department of [address] [address] Hector Sandhu M.D., Ph.D. Maria De Jesus Blancas APRN, C.N.Bethany., D.N.P. COVID-19 Infection 12/22/2021 Clinical Communication Department of [facility], [facility], in [address] [phone] Hector Sandhu M.D., Ph.D. Communication 11/25/2021 Orders Only Department of Neurologic Surgery in [address] [address] Preeti Swift R.N. Prolactinoma (HCC) (Primary Dx) 11/25/2021 3:25 PM CDT Ancillary Procedure Department of Ophthalmology 11/25/2021 3:00 PM CDT Ancillary Procedure Department of Ophthalmology in [place], [place] [address] [place] [phone] Delta Parrish M.D. Prolactinoma (HCC) 11/19/2021 Clinical Communication Department of Orthopedic Surgery in [address] [address] Arpan Alejo M.D. 11/17/2021 Orders Only Department of Neurologic Surgery in [address] [address] Preeti Swift R.N. Prolactinoma (HCC) (Primary Dx) 11/17/2021 9:06 AM CDT - 11/17/2021 11:59 PM CDT Hospital Encounter Department of Radiology, [facility] in [place], [place] [address] [place] [phone] Delta Parrish M.D. Prolactinoma (HCC) Discharge Disposition: Home or Self Care 11/17/2021 2:30 PM CDT Office Visit Department of Neurologic Surgery in [place], [place] [address] [place] [phone] Delta Parrish M.D. Adenoma Pituitary (HCC) (Primary Dx); Prolactinoma (HCC) 11/14/2021 9:00 AM CDT Clinical Communication Virtual Review in [place], [place] 200 [place] [address] Pre-visit Intake 10/15/2021 Clinical Communication Department of Orthopedic Surgery in [address] [phone] Arpan Alejo M.D. Surgical Listing 10/15/2021 8:30 AM CDT Comprehensive Visit Department of Orthopedic Surgery in [address] [address] Yessy Michel APRN CMaximeN.P., D.N.P. Encounter For Preprocedural Laboratory Examination (COVID-19) (Primary Dx); Olecranon Bursitis Left Elbow; Preoperative Exam 10/13/2021 Clinical Communication Department of Orthopedic Surgery in [place], [place] [address] [place] [address] Guillermo Johnson M.D. Addendum Request 10/06/2021 12:04 PM CDT - 10/06/2021 11:59 PM CDT Hospital Encounter Department of Radiology, [facility] in [place], [place] [address] [place] [address] Guillermo Johnson M.D. Pain Foot Left Discharge Disposition: Home or Self Care 10/06/2021 1:15 PM CDT Comprehensive Visit Department of Orthopedic Surgery in [place], [place] [address] [place] [address] Guillermo Johnson M.D. Primary Osteoarthritis Foot Left (Primary Dx) 09/29/2021 3:05 PM CDT - 09/29/2021 11:59 PM CDT Hospital Encounter Department of Radiology in [address] [address] Kristi Mancia, P.A. Olecranon Bursitis Left Elbow Discharge Disposition: Home or Self Care 09/29/2021 3:00 PM CDT Office Visit Department of Family Medicine, [facility], in [address] [address] Kristi Mancia, P.A. Olecranon Bursitis Left Elbow (Primary Dx) 09/27/2021 Nurse Triage Department of Family Medicine, [facility], in [place], [place] [address] [place] [address] Mimi Gonzalez R.N. Joint Swelling 09/10/2021 Clinical Communication Department of Orthopedic Surgery in [place], [place] [address] [place] [address] Guillermo Johnson M.D. 09/05/2021 Clinical Communication Department of Orthopedic Surgery in [place], [place] [address] [place] [address] Prescheduling, Provider Pre-scheduling Questionnaire ( FOOT AND ANKLE QUESTION SET ) 09/05/2021 11:40 AM BLOCK FEEDER - 09/05/2021 11:59 PM BLOCK FEEDER Hospital Encounter Department of Radiology in [address] [address] Hector Sandhu M.D., Ph.D. Primary Osteoarthritis Foot Left Discharge Disposition: Home or Self Care 09/02/2021 Orders Only [facility] Hector Sandhu M.D., Ph.D. 09/02/2021 3:30 PM BLOCK FEEDER Office Visit Department of [facility], [facility], in [address] [address] Hector Sandhu M.D., Ph.D. Frequency Urinary (Primary Dx); Dysfunction Erectile; Screening Examination Prostate Cancer; Myalgia; Prolactinoma (HCC); Primary Osteoarthritis Foot Left 06/24/2021 External Outreach Department of Family [facility], [facility], [address] [phone] Arsenio Tracey P.A.-C., P.A. Contact With And (Suspected) Exposure To COVID-19 (Primary Dx) 06/24/2021 9:20 AM BLOCK FEEDER Admin Visit Department of Family [facility], [facility], [address] [phone] Arsenio Tracey, P.Reji.-C., P.A. 06/06/2021 External Outreach Department of [facility], [facility], [address] [phone] Arsenio Tracey P.Reji.-C., P.A. Contact With And (Suspected) Exposure To COVID-19 (Primary Dx) 06/06/2021 10:00 AM BLOCK FEEDER Admin Visit Department of Family Medicine, [facility], in [address] [phone] Hector Sandhu M.D., Ph.D. 06/03/2021 3:45 PM BLOCK FEEDER Nurse Only Department of [facility], [facility], [address] [phone] Hector Sandhu M.D., Ph.D. Rosemary Lopez, L.P.N. 05/28/2021 12:00 PM BLOCK FEEDER Office Visit Department of [facility], [facility], [address] [phone] Hector Sandhu M.D., Ph.D. Dysfunction Eustachian Tube Bilateral (Primary Dx) 05/09/2021 Orders Only Department of Neurologic Surgery in [address] [address] Preeti Swift R.N. Prolactinoma (HCC) (Primary Dx) 05/07/2021 Orders Only Department of Family Medicine, [facility], [address] [address] Kristi Mancia, P.A. 05/07/2021 7:30 AM CDT Office Visit Department of Family Medicine, [facility], [address] [address] Kristi Mancia, P.A. Otitis Media Acute Left (Primary Dx); Tinnitus Left; Cough Unspecified Type; Need Vaccine Immunization Influenza; Bursitis Olecranon Left 05/05/2021 Nurse Triage Department of [facility], [facility], [address] [phone] Verna Soto RValdemar. Cough; Ear Problem; COVID Nurse Line 04/29/2021 6:45 AM CDT - 04/29/2021 11:59 PM CDT Hospital Encounter Department of Radiology, [facility], in [place], [place] [address] [place] [phone] Delta Parrish M.D. Prolactinoma (HCC) Discharge Disposition: Home or Self Care 04/29/2021 7:11 AM CDT - 04/29/2021 8:52 AM CDT Surgery [facility] OR [address] [place] [phone] Delta Parrish M.D. GAMMA KNIFE. 04/29/2021 5:31 AM CDT - 04/29/2021 11:04 AM CDT Hospital Encounter [facility] OR [address] [place] [phone] Delta Parrish M.D. Discharge Disposition: Home or Self Care 04/28/2021 10:30 AM CDT Office Visit Department of Neurologic Surgery in [place], [place] [address] [place] [phone] Delta Parrish M.D. Adenoma Pituitary (HCC) (Primary Dx); Prolactinoma (HCC) 04/28/2021 11:50 AM CDT - 04/28/2021 1:23 PM CDT Hospital Encounter Department of Radiology, [facility] in [place], [place] [address] [place] [phone] Delta Parrish M.D. Discharge Disposition: Home or Self Care 04/28/2021 1:24 PM CDT - 04/28/2021 2:29 PM CDT Hospital Encounter Department of Radiation Oncology in [place], [place] [address] [place] [phone] Sonny Mckinley M.D. Prolactinoma (HCC) 04/23/2021 10:00 AM CDT Clinical Communication Virtual Review in [place], [place] [address] [place] [address] Pre-visit Intake 04/11/2021 External Outreach Department of Family Medicine, [facility], in [address] [address] Arsenio Tracey P.A.-C., P.A. Contact With And (Suspected) Exposure To COVID-19 (Primary Dx) 04/11/2021 2:10 PM CDT Admin Visit Department of [facility], [address] [address] Arsenio Tracey P.A.-C., P.A. 04/11/2021 Patient Self-Triage [facility] Symptom Electroneurodiagnostic Technician, Provider 04/08/2021 9:30 AM CDT Clinical Support Department of Rehabilitation Services in [address] [address] Arpan Alejo M.D. Nicolasa Eller P.T. Primary Osteoarthritis Knee Right 04/03/2021 2:00 PM CDT Immunization Department of [facility], [facility], [address] [address] Hector Sandhu M.D., Ph.D. 04/01/2021 9:30 AM CDT Clinical Support Department of Rehabilitation Services in [address] [address] Arpan Alejo M.D. Fogarty, Jennifer L, P.T. Primary Osteoarthritis Knee Right 03/26/2021 8:30 AM CDT Clinical Support Department of Rehabilitation Services in [address] [address] Arpan Alejo M.D. Nicolasa Eller P.T. Primary Osteoarthritis Knee Right 03/25/2021 Clinical Communication Department of Neurologic Surgery in [place] [address] [place] [address] Delta Parrish M.D. 03/18/2021 9:30 AM CDT Comprehensive Visit Department of Rehabilitation Services in [address] [address] Arpan Alejo M.D. Fogarty, Jennifer L, P.T. Primary Osteoarthritis Knee Right 03/17/2021 Clinical Communication Department of Neurologic Surgery in [address] [address] Delta Parrish M.D. 03/12/2021 11:00 AM CDT Comprehensive Visit Department of Neurologic Surgery in [address] [address] Epifanio Nair M.D. Prolactinoma (HCC) 03/12/2021 1:00 PM CDT Comprehensive Visit Department of Neurologic Surgery in [address] [address] Delta Parrish M.D. Adenoma Pituitary (HCC) (Primary Dx); Prolactinoma (HCC) 03/11/2021 Clinical Communication Department of Neurologic Surgery in [place], [place] [address] [place] [phone] Epifanio Nair M.D. Pre-visit Intake 03/11/2021 Clinical Communication Department of Neurologic Surgery in [address] [address] Epifanio Nair M.D. Pre-visit Intake 03/07/2021 10:00 AM CDT Office Visit Department of Orthopedic Surgery in [address] [address] Arpan Alejo M.D. Primary Osteoarthritis Knee Right (Primary Dx) 03/03/2021 3:30 PM CDT Comprehensive Visit Department of Neurologic Surgery in [address] [address] Matthew Victoria M.D. Prolactinoma (HCC) 02/21/2021 11:30 AM CDT Office Visit Division of Endocrinology in [address] [address] Mauri Marquez Jr., M.D. Prolactinoma (HCC) (Primary Dx) 02/19/2021 12:37 PM CDT - 02/19/2021 11:59 PM CDT Hospital Encounter Department of Pulmonary Medicine in [address] [phone] Hector Sandhu M.D., Ph.D. Dyspnea On Exertion Discharge Disposition: Home or Self Care 02/14/2021 12:40 PM CDT Lab Urgent Care in [address] [phone] Hector Sandhu M.D., Ph.D. Preprocedural Lab Exam 01/30/2021 8:43 AM CDT - 01/30/2021 11:59 PM CDT Hospital Encounter Department of Laboratory Medicine in [address] [phone] Mauri Marquez Jr., M.D. Prolactinoma (HCC) Discharge Disposition: Home or Self Care 01/30/2021 7:31 AM CDT - 01/30/2021 8:42 AM CDT Hospital Encounter Department of Radiology in [address] [phone] Mauri Marquez Jr., M.D. Prolactinoma (HCC) Discharge Disposition: Home or Self Care 01/21/2021 3:45 PM CDT Office Visit Department of Family Medicine, [facility], in [address] [phone] Vicky Fofana M.D. Pain Knee Right (Primary Dx) 01/15/2021 Clinical Communication Department of Family Medicine, [facility], in [address] [phone] Hector Sandhu M.D., Ph.D. COVID Inquiry 12/17/2020 Orders Only Department of Family Medicine, [facility], in [address] [phone] Hector Sandhu M.D., Ph.D. Dyspnea On Exertion (Primary Dx) 12/17/2020 10:15 AM CDT - 12/17/2020 10:17 AM CDT Hospital Encounter Department of Laboratory Medicine in [address] [address] Hector Sandhu M.D., Ph.D. Shortness Of Breath Discharge Disposition: Home or Self Care 12/17/2020 10:18 AM CDT - 12/17/2020 11:59 PM CDT Hospital Encounter Department of Radiology in [address] [phone] Hector Sandhu M.D., Ph.D. Shortness Of Breath Discharge Disposition: Home or Self Care 12/10/2020 Orders Only Department of Family Medicine, [facility], in [address] [address] Hecotr Sandhu M.D., Ph.D. Shortness Of Breath 12/09/2020 12:43 PM CDT - 12/09/2020 11:59 PM CDT Hospital Encounter Department of Cardiovascular Diseases in [address] [address] Hector Sandhu M.D., Ph.D. Dyspnea On Exertion Discharge Disposition: Home or Self Care 12/04/2020 11:00 AM CDT Lab Department of Family Medicine, [facility] in [place], [place] [address] [place] [phone] Hector Sandhu M.D., Ph.D. Encounter For Preprocedural Laboratory Examination (COVID-19) 10/30/2020 4:21 PM CDT - 10/30/2020 11:59 PM CDT Hospital Encounter Department of Radiology in [address] [address] Hector Sandhu M.D., Ph.D. Dyspnea On Exertion Discharge Disposition: Home or Self Care 10/30/2020 4:00 PM CDT Office Visit Department of Family Medicine, [facility], in [address] [phone] Hector Sandhu M.D., Ph.D. Dyspnea On Exertion (Primary Dx); Fever Tick Borne; Raynaud's Disease 10/25/2020 Orders Only Division of Endocrinology in [place], [place] [address] [place] [address] Mauri Marquez Jr., M.D. Prolactinoma (HCC) (Primary Dx) 10/25/2020 Documentation Division of Endocrinology in [place], [place] [address] [place] [address] Mauri Marquez Jr., M.D. 10/23/2020 Nurse Triage Department of Family Medicine, [facility], in [place], [place] [address] [place] [address] Nicolasa Cortez R.N. Shortness of Breath; Maiden Tick Bite; COVID Nurse Line 10/10/2020 10:30 AM CDT - 10/10/2020 11:59 PM CDT Hospital Encounter Department of Laboratory Medicine in [address] [phone] Mauri Marquez Jr., M.D. Prolactinoma (HCC) Discharge Disposition: Home or Self Care 10/07/2020 Orders Only Division of Endocrinology in [place], [place] [address] [place] [address] Mauri Marquez Jr., M.D. Prolactinoma (HCC) (Primary Dx) 09/25/2020 Clinical Communication [facility] [address] [phone] Alia Michael Pharm.D., R.Ph. Med Question 09/18/2020 2:10 PM CDT Ancillary Procedure Department of Ophthalmology 09/18/2020 2:15 PM CDT Silent Schedule Department of Ophthalmology in [place], [place] [address] [place] [address] Malcom Celis M.D. 09/18/2020 1:30 PM CDT Ancillary Procedure Department of Ophthalmology in [place], [place] [address] [place] [address] Mauri Marquez Jr., M.D. Prolactinoma (HCC) 09/06/2020 Documentation Division of Endocrinology in [place], [place] [address] [place] [address] Mauri Marquez Jr., M.D. 09/05/2020 Orders Only Division of Endocrinology in [place], [place] [address] [place] [address] Mauri Marquez Jr., M.D. Prolactinoma (HCC) (Primary Dx) 08/30/2020 9:30 AM BLOCK FEEDER Telemedicine Division of Endocrinology in [place], [place] [address] [place] [address] Mauri Marquez Jr., M.D. Prolactinoma (HCC) 08/29/2020 Orders Only [facility] Lashae aPez M.D. 08/15/2020 10:34 AM BLOCK FEEDER - 08/15/2020 11:59 PM BLOCK FEEDER Hospital Encounter Department of Radiology in [address] [phone] Hector Sandhu M.D., Ph.D. Mitral Valve Prolapse; Dilatation Ascending Aorta (HCC) Discharge Disposition: Home or Self Care 07/25/2020 10:29 AM BLOCK FEEDER - 07/25/2020 11:59 PM BLOCK FEEDER Hospital Encounter Department of Radiology in [address] [phone] Hector Sandhu M.D., Ph.D. Prolactinoma (HCC) Discharge Disposition: Home or Self Care 07/22/2020 10:15 AM BLOCK FEEDER - 07/22/2020 11:59 PM BLOCK FEEDER Hospital Encounter Department of Laboratory Medicine in [address] [address] Hector Sandhu M.D., Ph.D. Urgency Urinary; Benign Prostatic Hyperplasia Without Obstruction; Prolactinoma (HCC) Discharge Disposition: Home or Self Care 07/22/2020 10:15 AM BLOCK FEEDER - 07/22/2020 11:59 PM BLOCK FEEDER Hospital Encounter Department of Laboratory Medicine in [address] [phone] Hector Sandhu M.D., Ph.D. Urgency Urinary; Benign Prostatic Hyperplasia Without Obstruction Discharge Disposition: Home or Self Care 07/18/2020 Orders Only Department of [facility], [facility], in [address] [address] Hector Sandhu M.D., Ph.D. Prolactinoma (HCC) (Primary Dx) 07/16/2020 4:45 PM BLOCK FEEDER Internal E-Consult Division of Endocrinology in [place] [address] [place] [address] Janet Nielsen M.D., M.S. Prolactinoma (HCC) 07/13/2020 8:30 AM BLOCK FEEDER Telemedicine Department of [facility], [facility], in [address] [phone] Hector Sandhu M.D., Ph.D. Urgency Urinary (Primary Dx); Benign Prostatic Hyperplasia Without Obstruction; Prolactinoma (HCC); Mitral Valve Prolapse; Dilatation Ascending Aorta (HCC) 07/03/2020 Clinical Communication Department of [facility], [facility], in [address] [address] Hector Sandhu M.D., Ph.D. 05/16/2020 1:00 PM BLOCK FEEDER Immunization Department of [facility], [facility], in [address] [address] Alvin Patterson M.D. Need Vaccine Immunization Influenza 01/04/2020 11:30 AM CDT Office Visit Department of [facility], [facility], in [address] [address] Nadia Cuevas APRN, C.N.P., D.N.P. Hordeolum Left (Primary Dx) 01/04/2020 Nurse Triage Department of Family [facility], [facility], in [address] [phone] Isabel Coffey R.N. COVID Nurse Line; Triage 08/01/2019 8:30 AM BLOCK FEEDER Office Visit Department of Orthopedic Surgery in [address] [phone] Yessy Michel APRN, C.N.P., D.N.P. Arthroscopy Knee Status Post (Primary Dx); Pain Knee Right 07/28/2019 Clinical Communication Department of [facility], [facility], in [address] [phone] Hector Sandhu M.D., Ph.D. 07/28/2019 10:30 AM BLOCK FEEDER Office Visit Department of [facility], [facility], in [address] [phone] Trace Batista M.D. Olson, Beata E, RValdemar. Annual Medicare Examination Return 06/30/2019 11:30 AM BLOCK FEEDER Office Visit Department of Orthopedic Surgery in [address] [phone] Yessy Michel APRN, C.N.P., D.N.P. Pain Knee Right 06/13/2019 Clinical Communication Department of Orthopedic Surgery in [address] [phone] Christen Rosa APRN, C.N.P., D.N.P. Post Op Reschedule 06/12/2019 2:35 PM BLOCK FEEDER Ancillary Procedure Department of General Surgery 06/12/2019 3:30 PM BLOCK FEEDER - 06/12/2019 4:15 PM BLOCK FEEDER Surgery Outpatient Procedure Center in [address] [phone] Arpan Alejo M.D. ARTHROSCOPY KNEE MENISCUS - PARTIAL MEDIAL MENISECTOMY-Right knee arthroscopy,partial medial menisectomy 06/12/2019 2:57 PM BLOCK FEEDER Anesthesia Event Outpatient Procedure Center in [address] [phone] Arelis Anthony M.D. Johnson, Rebecca L, M.D. 06/12/2019 1:23 PM BLOCK FEEDER - 06/12/2019 5:42 PM BLOCK FEEDER Hospital Encounter Outpatient Procedure Center in [address] [phone] Arpan Alejo M.D. Pain Knee Right (Primary Dx) Discharge Disposition: Home or Self Care 06/06/2019 2:15 PM BLOCK FEEDER Telemedicine Department of General Surgery in [address] [phone] Arpan Alejo M.D. Lou, Abby P, R.N. Preanesthetic Medical Exam (Primary Dx); Pain Knee Right 06/02/2019 9:30 AM BLOCK FEEDER Office Visit Department of Family Medicine, [facility], in [address] [phone] Nadia Cuevas, ANDREIA, C.N.P., D.N.P. Hordeolum Right (Primary Dx); Cellulitis Preseptal 05/16/2019 Clinical Communication Department of Orthopedic Surgery in [address] [phone] Arpan Alejo M.D. surgical listing ortho 05/16/2019 Orders Only Department of Orthopedic Surgery in [address] [phone] Nicolasa Montalvo R.N. 05/16/2019 Orders Only Department of Orthopedic Surgery in [address] [phone] Nicolasa Montalvo R.N. Pain Knee Right (Primary Dx) 05/16/2019 Clinical Communication Department of Orthopedic Surgery in [address] [address] Arpan Alejo M.D. schedule surgery 05/12/2019 11:30 AM BLOCK FEEDER Comprehensive Visit Department of Orthopedic Surgery in [address] [phone] Arpan Alejo M.D. Primary Osteoarthritis Knee Right (Primary Dx); Pain Knee Right 04/27/2019 Orders Only Department of [facility], [facility], in [address] [phone] Hector Sandhu M.D., Ph.D. Pain Knee Right (Primary Dx) 04/27/2019 11:09 AM CDT - 04/27/2019 11:59 PM CDT Hospital Encounter Department of Radiology in [address] [phone] Hector Sandhu M.D., Ph.D. Pain Knee Right Discharge Disposition: Home or Self Care 04/26/2019 10:30 AM CDT Office Visit Department of Family Medicine, [facility], in [address] [phone] Hector Sandhu M.D., Ph.D. Pain Knee Right (Primary Dx); Swelling Knee Right; Mass Pituitary (HCC) 03/20/2019 8:30 AM CDT Clinical Support Department of Rehabilitation Services in [address] [phone] Trace Batista M.D. Nichole Bergman P.T. Edema 03/15/2019 11:00 AM CDT Clinical Support Department of Rehabilitation Services in [address] [phone] Trace Batista M.D. Nichole Bergman P.T. Edema 03/13/2019 Clinical Communication Department of Orthopedic Surgery in [address] [phone] Nichole Bergman P.T. DME compression supplies 03/13/2019 10:00 AM CDT Clinical Support Department of Rehabilitation Services in [address] [place] [address] Trace Batista M.D. Bonderson, Alicia M, P.T. Edema 03/10/2019 8:00 AM CDT Comprehensive Visit Department of Rehabilitation Services in [address] [place] [address] Trace Batista M.D. Bonderson, Alicia M, P.T. Edema 02/27/2019 1:00 PM CDT Clinical Support Department of Rehabilitation Services in [address] [phone] Trace Batista M.D. Meaike, Savannah A P.T. Swelling Knee Right; Pain Knee Right 02/22/2019 3:30 PM CDT Comprehensive Visit Department of Rehabilitation Services in [address] [phone] Trace Batista M.D. Meaike, Savannah A P.T. Pain Knee Right (Primary Dx); Swelling Knee Right 02/17/2019 9:55 AM CDT - 02/17/2019 11:59 PM CDT Hospital Encounter Department of Radiology in [address] [phone] Trace Batista M.D. Swelling Knee Right Discharge Disposition: Home or Self Care 02/17/2019 9:45 AM CDT Office Visit Department of Family Medicine, [facility], in [address] [phone] Trace Batista M.D. Swelling Knee Right (Primary Dx) 01/06/2019 10:00 AM CDT Office Visit Department of Family Medicine, [facility], in [address] [phone] Ruben Yuen P.A.-CMaxime, P.A. Edema Peripheral (Primary Dx) 01/04/2019 Nurse Triage Department of Family [facility], [facility], in [place], [place] [address] [place] [phone] Ann Arshad M.S.N., R.N. 12/19/2018 Clinical Communication Department of Orthopedic Surgery in [address] [phone] Nicolasa Clark D.P.M. 12/16/2018 10:00 AM CDT - 12/16/2018 11:59 PM CDT Hospital Encounter Department of Radiology in [address] [phone] Nicolasa Clark D.P.M. Edema Lower Extremity Discharge Disposition: Home or Self Care 12/08/2018 1:15 PM CDT Comprehensive Visit Department of Orthopedic Surgery in [address] [phone] Nicolasa Clark D.P.M. Arthritis Foot (Primary Dx); Pain Foot Right; Pes Planus Left; Pes Planus Right; Pronation Foot Left; Pronation Foot Right; Neuropathy; Edema Lower Extremity 11/16/2018 6:48 PM CDT - 11/16/2018 11:59 PM CDT Hospital Encounter Department of Radiology in [address] [phone] Eloina Carcamo P.A.-CMaxime, P.A. Pain Foot Right Discharge Disposition: Home or Self Care 11/16/2018 6:20 PM CDT Office Visit Urgent Care in [address] [phone] Eloina Carcamo P.A.-CMaxime, P.A. Pain Foot Right (Primary Dx) 11/16/2018 Nurse Triage Department of Family Medicine, [facility], in [place], [place] [address] [place] [address] Kaylie Araya RMaximeNMaxime 09/28/2018 Nurse Triage Department of Family Medicine, [facility], in [place], [place] [address] [place] [address] Beatriz Slaughter R.N. 07/29/2018 9:55 AM BLOCK FEEDER - 07/29/2018 11:59 PM BLOCK FEEDER Hospital Encounter Department of Radiology in [address] [phone] Trace Batista M.D. Discomfort Chest Discharge Disposition: Home or Self Care 07/29/2018 9:30 AM BLOCK FEEDER Office Visit Department of Family [facility], [facility], in [address] [phone] Trace Batista M.D. Discomfort Chest (Primary Dx); High Risk Medication 07/27/2018 Clinical Communication Department of Family [facility], [facility], in [address] [phone] Trace Batista M.D. Visit 07/27/2018 12:30 PM BLOCK FEEDER Office Visit Department of Family Medicine, [facility], in [address] [phone] Aftab Batista M.D. Robida, Kendra M, R.N. Annual Medicare Examination Return (Primary Dx) 05/27/2018 9:00 AM BLOCK FEEDER Nurse Only Department of Family Medicine, [facility], in [address] [phone] Trace Batista M.D. Erickson, Alyssa A, L.P.N. Flu Vaccine 12/29/2017 Nurse Triage Department of Family Medicine, [facility], in [place], [place] [address] [place] [address] Isabel Coffey RValdemar. 05/13/2017 10:15 AM BLOCK FEEDER Telemedicine Department of Gastroenterology 05/13/2017 10:50 AM BLOCK FEEDER - 05/13/2017 11:50 AM BLOCK FEEDER Surgery Outpatient Procedure Center in [address] [phone] Tunde Yoder M.D. COLONOSCOPY - POSSIBLE BIOPSY 05/13/2017 10:31 AM BLOCK FEEDER Anesthesia Event Outpatient Procedure Center in [address] [phone] Oliver Borges, ANDREIA, MAINTENANCE OF WAY SUPERVISOR, R.N. 05/13/2017 9:44 AM BLOCK FEEDER - 05/13/2017 11:50 AM BLOCK FEEDER Hospital Encounter Outpatient Procedure Center in [address] [phone] Bernard Robbins M.D. Discharge Disposition: Home or Self Care 05/03/2017 7:58 AM CDT - 05/03/2017 11:59 PM CDT Hospital Encounter [facility]X [facility] LAB Trace Batista M.D. 05/03/2017 7:58 AM CDT - 05/03/2017 11:59 PM CDT Hospital Encounter [facility] ULTRASOUN Trace Batista M.D. 04/26/2017 10:59 AM CDT - 04/26/2017 11:59 PM CDT Hospital Encounter [facility]X [facility] FAMILY ME Trace Batista M.D. 04/26/2017 9:37 AM CDT - 04/26/2017 11:59 PM CDT Hospital Encounter HX [facility] FAMILY ME Trace Batista M.D. 08/06/2016 9:19 AM BLOCK FEEDER - 08/06/2016 11:59 PM BLOCK FEEDER Hospital Encounter [facility]X [facility] CARDIOLOG Pedro Merino M.D., Ph.D. 04/28/2016 1:20 PM CDT - 04/28/2016 11:59 PM CDT Hospital Encounter HX [facility] FAMILY ME Hector Sandhu M.D., Ph.D. 09/19/2015 3:14 PM CDT - 09/19/2015 11:59 PM CDT Hospital Encounter [facility]X [facility] FAMILY ME Annetta Telles APRN, C.N.P. 03/18/2015 8:54 AM CDT - 03/18/2015 11:59 PM CDT Hospital Encounter HX [facility] PODIATRY Esperanza Louis D.P.M. 03/13/2015 5:17 PM CDT - 03/13/2015 11:59 PM CDT Hospital Encounter HX [facility] FAMILY MS Trace Batista M.D. 09/28/2014 12:47 PM CDT - 09/28/2014 11:59 PM CDT Hospital Encounter HX [facility] MS Douglas Grace M.D. 08/01/2014 11:41 AM BLOCK FEEDER - 08/01/2014 11:59 PM BLOCK FEEDER Hospital Encounter [facility]X [facility] Victoria Thomas M.D. 06/18/2014 10:00 AM BLOCK FEEDER - 06/18/2014 11:59 PM BLOCK FEEDER Hospital Encounter HX [facility] Sammi Garcia NAry Allergies Active Allergy Reactions Criticality Noted Date Comments Bee Venom Protein (Honey Bee) Anaphylaxis High 05/10 Medications Medication Sig Dispensed Refills Start Date End Date Status EPINEPHrine 0.3 mg/0.3 mL injection syringe Inject 0.3 mg intramuscularly as needed. 1 Active ibuprofen (ADVIL,MOTRIN) 200 mg tablet Take 400 mg by mouth 2 (two) times a day. Active tadalafiL (CIALIS) 5 mg tablet TAKE 1 TABLET BY MOUTH DAILY. 90 tablet 11 3 Active rosuvastatin (CRESTOR) 10 mg tablet TAKE 1 TABLET(10 MG) BY MOUTH DAILY 90 tablet 3 3 Active acetaminophen (TYLENOL) 500 mg tablet Take 1,000 mg by mouth every 6 (six) hours as needed for pain. Active naproxen (NAPROSYN) 500 mg tablet Take 1 tablet (500 mg total) by mouth 2 (two) times a day as needed for pain (pain). 60 tablet 2 4 10/19/19 24 Discontinued Active Problems Problem Noted Date Diagnosed Date Primary Osteoarthritis Hip Left 07/23/2023 Hypercholesterolemia 07/23/2023 History Of Falling 06/04/2023 Benign Prostatic Hyperplasia Without Obstruction 04/15/2022 Overweight Body Mass Index 25-29.9 Adult 022 Prolactinoma 06/18/2014 Overview: Mass Pituitary tumor removed in the Pes Planus 11/14/2013 Edema Resolved Problems Problem Noted Date Diagnosed Date Resolved Date Screening Cancer Colon 04/15/202210/06 Overview: Added automatically from request for surgery [id number] COVID-19 Infection 12/22/2021 Olecranon Bursitis Left Elbow 10/15/2021 04/15/2022 Overview: Added automatically from request for surgery [id number] Pes Planus Left 10/06/2021 04/15/2022 Dilatation Ascending Aorta 07/13/2020 0 10/30/2020 Swelling Knee Right 02/17/2019 10/31/19 21 Tumor Benign Pituitary 04/26/201807/29 Pain Knee Right 04/15/2022 Immunizations Name Administration Dates Next Due HepA Adult 02/16/2023,04/15/2022 HepB Adult (HEPLISAV-B) 06/03/2022,04/15/2022 Influenza high dose QV(65 ye ars or older) (PF) 05/06/2023,04/29/2022,05/07/2021,2019 Influenza, Injectable, Quadrivalent 03/20/2013 Influenza, Seasonal, Injectable 05/17/20 12,03/25/2011,05/10/2003,2000,05/18/2000 Influenza, Unspecified 04/26/2017,04/28/2016, PCV13 04/28/2016 PPSV23(Discontinued) 03/13/2015 RZV (SHINGRIX) 09/02/2021,06/03/2021 SARS-COV-2 (COVID-19) - MODE RNA (12 YEARS AND OLDER) [id number] 05/06/2023 SARS-COV-2 (COVID-19) - PFIZ ER (Discontinued)(12 years or older) 04/03/2021,08/23/2020 SARS-COV-2 (COVID-19) - PFIZ ER BIVALENT TS(Discontinued)(12 YEARS OR OLDER) 02/16/2023,04/06/2022 SARS-COV-2 (COVID-19) - PFIZ ER TS(Discontinued)(12 years or older) 09/02/2021 Td (Adult), adsorbed 04/26/2017 Td, (Adult) Unspecified 07/30/1993 Tdap 02/12/2023,03/23/2006 Ty21a (oral) 04/24/2022,04/09/2022 TyVi (inj) 04/06/2022 influenza high dose (65 year s or older) (PF) 04/26/2019,05/27/2018 Family History Medical History Relation Name Comments Melanoma Brother 1 Miles Prostate cancer Brother 1 Peter Retinal degeneration Brother 1 Peter Alcohol abuse Brother 2 Stuart Alcoholic Brother 2 Stuart Depression Brother 2 Stuart Drug abuse Brother 2 Stuart Depression Father Alexandr Prostate cancer Father Alexandr Coronary artery disease Maternal Grandmother Mary Jo Cataracts Mother Mariam Dementia Mother Mariam Hypertension Mother Mariam Hysterectomy Mother Mariam Cataracts Sister 1 Preeti Melanoma Sister 2 Irma Melanoma Sister 3 Kaitlynn Amblyopia Neg Hx Anesthesia problems Neg Hx Blindness Neg Hx Corneal Dystrophy Neg Hx Glaucoma Neg Hx Macular degeneration Neg Hx Retinal detachment Neg Hx Strabismus Neg Hx Vision loss Neg Hx Relation Name Status Comments Brother 1 Peter Alive Brother 2 Stuart Alive Daughter Alive Father Alexandr Maternal Grandmother Mary Jo Mother Mariam Alive Sister 1 Preeti Alive Sister 2 Irma Alive Sister 3 Kaitlynn Son Alive Social History Smoking Status as of 11/03/2023 Tobacco Use Types Packs/Day Years Used Date Smoking Tobacco: Never Assessed [facility] Utilities Answer Date Recorded In the past 12 months has e [place], gas, oil, or water Abigail Stewart threatened to shut off services in your home? No 10/15/2023 Humiliation, Afraid, Rape, and Kick questionnair e Answer Date Recorded Within the last year, have y ou been afraid of your partner or ex-partner? No 10/02/2022 Within the last year, have y ou been humiliated or emotionally abused in other ways by your partner or ex-partner? No Within the last year, have y ou been kicked, hit, slapped, or otherwise physically hurt by your partner or ex-partner? No 10/02/2022 Within the last year, have y ou been raped or forced to have any kind of sexual activity by your partner or ex-partner? No 10/02/2022 Social Connection and Isolat ion Panel [NHANES] Answer Date Recorded In a typical week, how many times do you talk on the phone with family, friends, or neighbors? More than three times a week 10/02/2022 How often do you get togethe r with friends or relatives? Twice a week 10/02/2022 How often do you attend chur ch or shinto services? Never 10/02/2022 Do you belong to any clubs o r organizations such as yarsani groups, unions, fraternal or athletic groups, or school groups? Yes 10/02/2022 How often do you attend meet ings of the clubs or organizations you belong to? More than 4 times per year 10/02/2022 Are you , , di vorced, , never , or living with a partner? 10/02/2022 AUDIT-C Answer Date Recorded Q1: How often do you have a drink containing alcohol? 4 or more times a week 10/02/2022 Q2: How many drinks containi ng alcohol do you have on a typical day when you are drinking? 1 or 2 3 Q3: How often do you have si x or more drinks on one occasion? Never 10/02/2022 Overall Financial Resource Strain (CARDIA) Answe r Date Recorded How hard is it for you to pa y for the very basics like food, housing, medical care, and heating? Not hard at all 10/02/2022 PHQ-2 Answer Date Recorded PHQ-2 Score 0 07/19/2023 [facility] - Occupational Stress Questionnaire Answer Date Recorded Do you feel stress - tense, restless, nervous, or anxious, or unable to sleep at night because your mind is troubled all the time - these days? Not at all 10/02/2022 Exercise Vital Sign Answer Date Recorde d On average, how many days pe r week do you engage in moderate to strenuous exercise (like a brisk walk)? 7 days 10/15/2023 On average, how many minutes do you engage in exercise at this level? 60 min 10/15/2023 Hunger Vital Sign Answer Date Recorded Within the past 12 months, y ou worried that your food would run out before you got the money to buy more. Never true 10/15/19 24 Within the past 12 months, t he food you bought just didn't last and you didn't have money to get more. Never true 10/15/2023 PRAPARE - Transportation Answer Date Re corded In the past 12 months, has l ack of transportation kept you from medical appointments or from getting medications? No 10/03 In the past 12 months, has l ack of transportation kept you from meetings, work, or from getting things needed for daily living? No 10/15/2023 Nutrition Answer Date Recorded On average, how many serving s of fruits and vegetables do you eat per day (serving size is equal to 1 cup or approximately the size of a tennis ball)? 3-5 10/15/2023 Dental Answer Date Recorded Dental: Regular Dentist Yes 08/25/19 Employment Answer Date Recorded Employment status Retired 10/15/2023 Housing Stability Answer Date Recorded What is your living situation today? I have a [facility] place to live 10/15/2023 Education Answer Date Recorded What is the highest level of school you have completed or the highest degree you have received? Professional school degree (e.g., MD, DDS, DVM, TIFFANIE) 12/07/2018 Sex and Gender Information Value Date Recorded Sex Assigned at Male 12/29/2017 11:12 PM CDT Gender Identity Male 12/29/2017 11:12 PM CDT Sexual Orientation Straight 12/29/2017 11 :12 PM CDT Last Filed Vital Signs Vital Sign Reading Time Taken Comments Blood Pressure 125/82 10/19/2023 3:22 PM CDT Pulse 63 10/19/2023 3:22 PM CDT Temperature 35.3 ??C (95.5 ??F) 10/19/2023 3:22 PM CD T Respiratory Rate 20 05/22/2022 8:35 AM BLOCK FEEDER Oxygen Saturation 98% 10/19/2023 3:22 PM CDT Inhaled Oxygen Concentration - - Weight 102 kg (225 lb 5 oz) 10/19/2023 3:22 PM C DT Height 190 cm (6' 2.8) 10/19/2023 3:22 PM CDT Body Mass Index 28.31 10/19/2023 3:22 PM CDT Plan of Treatment Upcoming Encounters Date Type Department Care Team (Late st Contact Info) Description 11/10/2023 9:15 AM CDT Comprehensive Visit Department of Rehabilitation Services in [address] [phone] Arpan Alejo M.D. [address] [place] [phone] Nicolasa Eller P.T. [address] [place] [address] [phone] Procedures Procedure Name Priority Date/Time Associated Diagnosis Comments AUTOMATED VF - EXTENDED - OU - BOTH EYES Routine 10/28/2023 2:05 PM CDT Prolactinoma (HCC) CBC WITH DIFFERENTIAL, B Routine 10/19/2023 3:51 PM CDT Preoperative Exam BASIC METABOLIC PANEL, S/P Routine 10/19/2023 3:51 PM CDT Preoperative Exam DERMATOLOGY IMAGE EXAM Routine 4 12:05 AM CDT DERMATOLOGY IMAGE EXAM Routine 4 12:00 AM CDT PROLACTIN, S Routine 08/19/2023 10:16 AM BLOCK FEEDER Prolactinoma (HCC) DERMATOPATHOLOGY Routine 07/30/2023 4:32 PM BLOCK FEEDER Lesion Skin Face DERMATOLOGY IMAGE EXAM Routine 4 12:00 AM BLOCK FEEDER ECG Routine 07/23/2023 3:27 PM BLOCK FEEDER Preoperative Exam HEMOGLOBIN A1C, B Routine 07/19/2023 5:04 PM BLOCK FEEDER Insulin Resistance, Unspecified PROSTATE-SPECIFIC AG (PSA) SCRN, S Routine 07/19/2023 5:04 PM BLOCK FEEDER Screening Examination Prostate Cancer LIPID PANEL, S Routine 07/19/2023 5:04 PM BLOCK FEEDER Hyperlipidemia COMPREHENSIVE METABOLIC PANEL, S/P Routine 07/19/2023 5:04 PM BLOCK FEEDER Preoperative Exam CBC WITH DIFFERENTIAL, B Routine 07/19/2023 5:04 PM BLOCK FEEDER Preoperative Exam DX HIP AND PELVIS LEFT 2-3 VIEWS RAD - Routine (most inpatients and all outpatients) 06/04/2023 10:27 AM BLOCK FEEDER Pain Hip Left PROLACTIN, S Routine 02/16/2023 10:37 AM CDT Prolactinoma (HCC) PROLACTIN, S Routine 12/14/2022 10:34 AM CDT Prolactinoma (HCC) DX KNEE RIGHT 3 VIEWS RAD - Routine (most inpatients and all outpatients) 11/19/2022 8:38 AM CDT Pain Knee Right MR PITUITARY WITHOUT AND WITH IV CONTRAST RAD - Routine (most inpatients and all outpatients) 11/11/2022 9:30 AM CDT Prolactinoma (HCC) AUTOMATED VF - EXTENDED - OU - BOTH EYES Routine 10/20/2022 1:03 PM CDT Prolactinoma (HCC) DX CHEST AP OR PA AND LATERAL 2 VIEWS RAD - Routine (most inpatients and all outpatients) 10/06/2022 2:30 PM CDT Nodule Pulmonary LIPID PANEL, S Routine 09/28/2022 9:55 AM CDT Hyperlipidemia PROSTATE-SPECIFIC AG (PSA) SCRN, S Routine 09/28/2022 9:55 AM CDT Screening Examination Prostate Cancer COMPREHENSIVE METABOLIC PANEL, S/P Routine 09/28/2022 9:55 AM CDT Hyperlipidemia CBC WITH DIFFERENTIAL, B Routine 09/28/2022 9:54 AM CDT Edema PROLACTIN, S Routine 09/28/2022 9:54 AM CDT Prolactinoma (HCC) PROLACTIN, S Routine 07/22/2022 11:05 AM BLOCK FEEDER Prolactinoma (HCC) GASTROENTEROLOGY IMAGE EXAM Routine 05/22/2022 9:30 AM BLOCK FEEDER COLONOSCOPY 05/22/2022 9:29 AM BLOCK FEEDER SURGICAL PATHOLOGY Routine 05/22/2022 9:17 AM BLOCK FEEDER COLONOSCOPY 05/22/2022 9:02 AM BLOCK FEEDER Screening Cancer Colon PROLACTIN, S Routine 05/18/2022 10:09 AM BLOCK FEEDER Prolactinoma (HCC) [place] ARTHCS ASP/INJ MJR JT WO US Routine 04/16/2022 1:45 PM CDT Pain Knee Right LIPID PANEL, S Routine 04/15/2022 3:14 PM CDT Resistance Insulin HEMOGLOBIN A1C, B Routine 04/15/2022 3:13 PM CDT Resistance Insulin PROLACTIN, S Routine 04/15/2022 3:13 PM CDT Prolactinoma (HCC) PROLACTIN, S Routine 03/04/2022 10:30 AM CDT Prolactinoma (HCC) [place] ARTHCS ASP/INJ MJR JT WO US Routine 01/02/2022 10:35 AM CDT Pain Knee Right EXTM HOME SARS CORONAVIRUS-2 (COVID-19) ANTIGEN, V Routine 12/20/2021 OPHTHALMOLOGY IMAGE EXAM Routine 11/25/2021 3:25 PM CDT AUTOMATED VF - LIMITED - OU - BOTH EYES Routine 11/25/2021 3:24 PM CDT Prolactinoma (HCC) MR PITUITARY WITHOUT AND WITH IV CONTRAST RAD - Routine (most inpatients and all outpatients) 11/17/2021 10:16 AM CDT Prolactinoma (HCC) DX FOOT ANKLE LEFT 3+ VIEWS RAD - Routine (most inpatients and all outpatients) 10/06/2021 12:30 PM CDT Pain Foot Left DX ELBOW LEFT 2 VIEWS RAD - Routine (most inpatients and all outpatients) 09/29/2021 3:16 PM CDT Olecranon Bursitis Left Elbow DX FOOT LEFT 3+ VIEWS RAD - Routine (most inpatients and all outpatients) 09/05/2021 11:54 AM BLOCK FEEDER Primary Osteoarthritis Foot Left PROSTATE-SPECIFIC AG (PSA) SCRN, S Routine 09/02/2021 4:50 PM BLOCK FEEDER Screening Examination Prostate Cancer SEDIMENTATION RATE, B Routine 09/02/2021 4:50 PM BLOCK FEEDER Myalgia CREATINE KINASE (CK), S Routine 09/02/2021 4:50 PM BLOCK FEEDER Myalgia BASIC METABOLIC PANEL, S/P Routine 09/02/2021 4:43 PM BLOCK FEEDER Frequency Urinary SARS CORONAVIRUS-2 RNA, V Routine 06/24/2021 8:57 AM BLOCK FEEDER Contact With And (Suspected) Exposure To COVID-19 SARS CORONAVIRUS-2 RNA, V Routine 06/06/2021 9:53 AM BLOCK FEEDER Contact With And (Suspected) Exposure To COVID-19 ARIA DAILY TREATMENT INFORMATION Routine 04/29/2021 10:29 AM CDT MR BRAIN WITH IV CONTRAST RAD - Routine (most inpatients and all outpatients) 04/29/2021 8:02 AM CDT Prolactinoma (HCC) APPLICATION STEREOTACTIC HEAD FRAME 04/29/2021 6:00 AM CDT Prolactinoma (HCC) GAMMA KNIFE 04/29/2021 6:00 AM CDT Prolactinoma (HCC) CREATININE WITH EGFR, S/P Routine 04/28/2021 11:43 AM CDT Prolactinoma (HCC) SARS CORONAVIRUS-2 RNA, V Routine 04/11/2021 1:50 PM CDT Contact With And (Suspected) Exposure To COVID-19 [place] ARTHCS ASP/INJ MJR JT WO US Routine 03/07/2021 10:24 AM CDT Primary Osteoarthritis Knee Right PULMONARY FUNCTION TESTS Routine 02/22/2021 9:23 AM CDT Dyspnea On Exertion SARS CORONAVIRUS-2 RNA, V STAT 02/14/2021 12:30 PM CDT Preprocedural Lab Exam T4 (THYROXINE), FREE, S Routine 01/30/2021 8:51 AM CDT Prolactinoma (HCC) CORTISOL, S Routine 01/30/2021 8:51 AM CDT Prolactinoma (HCC) PRL, MACROADENOMA Routine 01/30/2021 8:51 AM CDT Prolactinoma (HCC) MR PITUITARY WITHOUT AND WITH IV CONTRAST RAD - Routine (most inpatients and all outpatients) 01/30/2021 8:24 AM CDT Prolactinoma (HCC) CT CHEST ANGIOGRAM AND PULMONARY ARTERIES WITH IV CONTRAST RAD - Routine (most inpatients and all outpatients) 12/17/2020 11:19 AM CDT Shortness Of Breath CREATININE WITH EGFR, S/P Routine 12/17/2020 10:28 AM CDT Shortness Of Breath ECHO STRESS 2D WITH COLOR, LIMITED DOPPLER AND CONTRAST Routine 12/09/2020 3:09 PM CDT Dyspnea On Exertion SARS CORONAVIRUS-2 RNA, V Routine 12/04/2020 10:18 AM CDT Encounter For Preprocedural Laboratory Examination (COVID-19) NT-PRO B-TYPE NATRIURETIC PEPTIDE (BNP), S Routine 10/30/2020 4:49 PM CDT Dyspnea On Exertion COMPREHENSIVE METABOLIC PANEL, S/P Routine 10/30/2020 4:49 PM CDT Dyspnea On Exertion CBC WITH DIFFERENTIAL, B Routine 10/30/2020 4:49 PM CDT Dyspnea On Exertion DX CHEST AP OR PA AND LATERAL 2 VIEWS RAD - Routine (most inpatients and all outpatients) 10/30/2020 4:41 PM CDT Dyspnea On Exertion ECG Routine 10/30/2020 4:33 PM CDT Dyspnea On Exertion PROLACTIN, S Routine 10/10/2020 10:40 AM CDT Prolactinoma (HCC) AUTOMATED VF - EXTENDED - OU - BOTH EYES Routine 09/18/2020 2:13 PM CDT Prolactinoma (HCC) OPHTHALMOLOGY IMAGE EXAM Routine 09/18/2020 2:10 PM CDT (TTE) 2D ECHO DOPPLER COLOR Routine 08/15/2020 11:41 AM BLOCK FEEDER Mitral Valve Prolapse Dilatation Ascending Aorta (HCC) MR BRAIN WITHOUT AND WITH IV CONTRAST RAD - Routine (most inpatients and all outpatients) 07/25/2020 12:53 PM BLOCK FEEDER Prolactinoma (HCC) URINALYSIS WITH MICROSCOPIC IF INDICATED, U Routine 07/22/2020 10:33 AM BLOCK FEEDER Urgency Urinary Benign Prostatic Hyperplasia Without Obstruction T4 (THYROXINE), FREE, S Routine 07/22/2020 10:32 AM BLOCK FEEDER Prolactinoma (HCC) PROLACTIN, S Routine 07/22/2020 10:32 AM BLOCK FEEDER Prolactinoma (HCC) TESTOSTERONE, TOT AND BIOAVAILABLE, S Routine 07/22/2020 10:32 AM BLOCK FEEDER Prolactinoma (HCC) CORTISOL, S Routine 07/22/2020 10:32 AM BLOCK FEEDER Prolactinoma (HCC) ACTH, P Routine 07/22/2020 10:32 AM BLOCK FEEDER Prolactinoma (HCC) PROSTATE-SPECIFIC AG (PSA) SCRN, S Routine 07/22/2020 10:32 AM BLOCK FEEDER Urgency Urinary Benign Prostatic Hyperplasia Without Obstruction ANESTHESIA REGIONAL BLOCK Routine 06/12/2019 3:07 PM BLOCK FEEDER ARTHROSCOPY KNEE MENISCUS 06/12/2019 2:57 PM BLOCK FEEDER Pain Knee Right SURGERY IMAGE EXAM Routine 06/12/2019 2:35 PM BLOCK FEEDER OUTSIDE MR NEURO Routine 05/17/2019 10:45 AM BLOCK FEEDER MR KNEE RIGHT WITHOUT IV CONTRAST RAD - Routine (most inpatients and all outpatients) 04/27/2019 12:15 PM CDT Pain Knee Right DX KNEE RIGHT 3 VIEWS RAD - Routine (most inpatients and all outpatients) 02/17/2019 10:16 AM CDT Swelling Knee Right URIC ACID, S/P Routine 01/06/2019 10:52 AM CDT Edema Peripheral COMPREHENSIVE METABOLIC PANEL, S/P Routine 01/06/2019 10:52 AM CDT Edema Peripheral US LOWER EXTREMITY VEINS RIGHT RAD - Routine (most inpatients and all outpatients) 12/16/2018 10:50 AM CDT Edema Lower Extremity DX FOOT RIGHT 3+ VIEWS RAD - Routine (most inpatients and all outpatients) 11/16/2018 7:11 PM CDT Pain Foot Right C-REACTIVE PROTEIN (CRP), S/P Routine 07/29/2018 10:17 AM BLOCK FEEDER Discomfort Chest TESTOSTERONE, TOT AND BIOAVAILABLE, S Routine 07/29/2018 10:17 AM BLOCK FEEDER Discomfort Chest HEMOGLOBIN, B Routine 07/29/2018 10:17 AM BLOCK FEEDER Discomfort Chest DX CHEST AP OR PA AND LATERAL 2 VIEWS RAD - Routine (most inpatients and all outpatients) 07/29/2018 10:11 AM BLOCK FEEDER Discomfort Chest ECG Routine 07/29/2018 10:07 AM BLOCK FEEDER Discomfort Chest COLONOSCOPY - POSSIBLE BIOPSY 05/13/2017 10:25 AM BLOCK FEEDER history of polyps Colon cancer screening GASTROENTEROLOGY IMAGE EXAM Routine 05/13/2017 10:15 AM BLOCK FEEDER COLONOSCOPY 05/13/2017 10:14 AM BLOCK FEEDER US AORTA AAA SCREENING Routine 7 8:42 AM CDT BASIC METABOLIC PANEL, S/P Routine 05/03/2017 8:13 AM CDT PROSTATE-SPECIFIC AG (PSA) SCRN, S Routine 05/03/2017 8:13 AM CDT LIPID PANEL, S Routine 05/03/2017 8:13 AM CDT HCV AB W/REFLEX TO HCV PCR, S Routine 05/03/2017 8:13 AM CDT URINALYSIS, ROUTINE Routine 04/28/2016 2:50 PM CDT CBC WITHOUT DIFFERENTIAL, B Routine 04/28/2016 2:48 PM CDT PROSTATE-SPECIFIC AG (PSA) SCRN, S Routine 04/28/2016 2:48 PM CDT LIPID PANEL, S Routine 04/28/2016 2:48 PM CDT COMPREHENSIVE METABOLIC PANEL, S/P Routine 04/28/2016 2:48 PM CDT DX HIP AND PELVIS LEFT 2+ VIEWS Routine 04/28/2016 2:33 PM CDT PROSTATE-SPECIFIC AG (PSA) SCRN, S Routine 03/13/2015 7:15 PM CDT LIPID PANEL, S Routine 03/13/2015 7:15 PM CDT COMPREHENSIVE METABOLIC PANEL, S/P Routine 03/13/2015 7:15 PM CDT DX CHEST AP OR PA AND LATERAL 2 VIEWS Routine 09/28/2014 2:03 PM CDT AUTOMATED DIFFERENTIAL, B Routine 09/28/2014 1:50 PM CDT CBC WITH DIFFERENTIAL, B Routine 09/28/2014 1:50 PM CDT URINALYSIS, MIDSTREAM, WITH CULTURE IF INDICATED Routine 09/28/2014 1:45 PM CDT OUTSIDE MR NEURO Routine 06/18/2006 11:45 AM BLOCK FEEDER Results * Automated VF - Extended - OU - Both Eyes (10/28/2023 2:05 PM CDT) Narrative OPHTHALMOLOGY IMAGING EXAM - 10/28/2023 2:05 PM CDT Right Eye Automated visual field device used was [employer]iss. Strategy was MONICA. Threshold was 24-2. Left Eye Automated visual field device used was [employer]iss. Strategy was MONICA. Threshold was 24-2. Notes Full both eyes Justin Caldwell M.D. OPHTH VISUAL FI ELD OPHTHALMOLOGY IMAGING EXAM * (ABNORMAL) CBC with Differential, Blood (10/19/2023 3:51 PM CDT) Only the most recent of5 resultswithin the time period is included. Hemoglobin 13.1(L) 13.2 - 16.6 g/dL 10/19/2023 4:07 PM CDT CNFL Hematocrit 39.3 38.3 - 48.6 % 10/19/2023 4:07 PM CDT CNFL Erythrocytes 4.34(L) 4.35 - 5.65 x10(12)/L 10/19/2023 4:07 PM CDT CNFL MCV 90.6 78.2 - 97.9 fL 10/19/2023 4:07 PM CDT CNFL RBC Distrib Width 12.5 11.8 - 14.5 % 10/19/2023 4:07 PM CDT CNFL Platelet Count 164 135 - 317 x10(9)/L 10/19/2023 4:07 PM CDT CNFL Leukocytes 5.8 3.4 - 9.6 x10(9)/L 10/19/2023 4:07 PM CDT CNFL Neutrophils 2.93 1.56 - 6.45 x10(9)/L 10/19/2023 4:07 PM CDT CNFL Lymphocytes 2.31 0.95 - 3.07 x10(9)/L 10/19/2023 4:07 PM CDT CNFL Monocytes 0.45 0.26 - 0.81 x10(9)/L 10/19/2023 4:07 PM CDT CNFL Eosinophils 0.11 0.03 - 0.48 x10(9)/L 10/19/2023 4:07 PM CDT CNFL Basophils <0.04 0.01 - 0.08 x10(9)/L 10/19/2023 4:07 PM CDT CNFL Blood (Blood, Venous) 10/19/2023 3:51 PM CDT 10/19/2023 3:52 PM CDT Hector Sandhu M.D., Ph.D. LAB BLOOD ADD-O N [facility] [address] [place] [id number], [facility] CNFL [facility] in [address] [address] * Basic Metabolic Panel (10/19/2023 3:51 PM CDT) Only the most recent of3 resultswithin the time period is included. Potassium, P 4.3 3.6 - 5.2 mmol/L 10/19/2023 4:13 PM CDT CNFL Sodium, P 141 135 - 145 mmol/L 10/19/2023 4:13 PM CDT CNFL Chloride, P 107 98 - 107 mmol/L 10/19/2023 4:13 PM CDT CNFL Bicarbonate, P 27 22 - 29 mmol/L 10/19/2023 4:13 PM CDT CNFL Anion Gap, P 7 7 - 15 10/19/2023 4:13 PM CDT CNFL BUN (Blood Urea Nitrogen), P 23 8 - 24 mg/dL 10/19/2023 4:13 PM CDT CNFL Creatinine 1.01 0.74 - 1.35 mg/dL 10/19/2023 4:13 PM CDT CNFL Estimated GFR (eGFR) 78 >=60 mL/min/BSA 10/19/2023 4:13 PM CDT CNFL Comment: Estimated GFR calculated using the 2020 CKD_EPI creatinine equation. Calcium, Total, P 9.0 8.8 - 10.2 mg/dL 10/19/2023 4:13 PM CDT CNFL Glucose, P 90 70 - 140 mg/dL 10/19/2023 4:13 PM CDT CNFL Blood (Blood, Venous) 10/19/2023 3:51 PM CDT 10/19/2023 3:53 PM CDT Hector Sandhu M.D., Ph.D. LAB BLOOD ADD-O N [facility] [address] [place] [id number], [facility] CNFL [facility] in [address] [address] * cheek, right upper 14 Mohs micrographic surgery-Dermatology Image Exam (10/01/2023 12:05 AM CDT) Only the most recent of3 resultswithin the time period is included. Narrative IIMS - 10/01/2023 2:53 PM CDT This order has been created and auto-finalized to support the import of images acquired without order. The clinical documentation to support these images can be found on the encounter that produced images. Provider Not In System IMG NON RAD IMAGI NG PROCEDURES Performing Organization Address City/[facility]/ZIP Co de Phone Number [facility] NA * Prolactin (08/19/2023 10:16 AM BLOCK FEEDER) Only the most recent of10 resultswithin the time period is included. Prolactin Total 5.2 4.0 - 15.2 ng/mL 08/19/2023 4:01 PM BLOCK FEEDER ECLR Comment: Biotin has been identified by the hand bootmaker as a potential interfering substance. Higher concentrations of biotin may be found in multivitamins, hair/nail supplements, and workout supplements. If the result does not match clinical observations, repeat testing after patient refrains from the use of supplements for at least 12 hours. ----ADDITIONAL INFORMATION---- The testing method is an electrochemiluminescence assay manufactured by [employer] and performed on the Man system. Values obtained with different assay methods or kits may be different and cannot be used interchangeably. Test results cannot be interpreted as absolute evidence for the presence or absence of malignant disease. Blood (Blood, Venous) 08/19/2023 10:16 AM BLOCK FEEDER 08/19/2023 3:01 PM BLOCK FEEDER Hector Sandhu M.D., Ph.D. LAB BLOOD ADD-O N Performing Organization Address City/[facility]/ZIP Co de Phone Number [facility] [address] [place] [id number], [facility] ECLR [facility] in [address] [address] * Dermatopathology (07/30/2023 4:32 PM BLOCK FEEDER) 08/05/2023 3:11 PM BLOCK FEEDER PDRM Report electronically signed by Mary Jo Telles M.D. Seen in consultation with: Bradley Saldivar M.D. 08/05/2023 3:11 PM BLOCK FEEDER PDRM Gross Description A: Received in formalin labeled with the patient's name, medical record number, and left malar cheek is a 0.8 x 0.5 x 0.1 cm pale tanskin shave biopsy. There is a 0.3 x 0.3 cm pale quinteros-quinteros, lightly pigmented, firm, nodular, keratotic lesion with well-circumscribe d borderseccentrica lly located and abutting the periphery of the skin surface. Specimen is bisected and submitted entirely in cassette A1. Grossedby MBAnabelle. B: Received in formalin labeled with the patient's name, medical record number, and right malar cheek is a 1.0 x 0.8 x 0.1 cm pale tanskin shave biopsy. Encompassing nearly the entire skin surface is a 0.8 x 0.6 cm pale quinteros-brown, pigmented lesion with irregular borders.Specimen is trisected and submitted entirely in cassette B1. ??Grossed by ISABELA. 08/05/2023 3:11 PM BLOCK FEEDER PDRM Interpretation FINAL DIAGNOSIS A. ??Left Malar Cheek, Skin shave biopsy: ??At least squamous cell carcinoma in situ, involving biopsy border B. ??Right Malar Cheek, Skin shave biopsy: Malignant melanoma in situ, lentigo maligna type, Vincent level I (T-classification : ??Tis) COMMENT The tumor cells are immunoreactive for SOX10. Tumor involves the peripheral margin. Complete surgical excision with appropriate margins is recommended. Digital imaging was used in the diagnostic assessment of this case. 08/05/2023 3:11 PM BLOCK FEEDER PDRM Skin (Left Malar Cheek) 07/30/2023 4:31 PM BLOCK FEEDER Skin (Right Malar Cheek) 07/30/2023 4:32 PM BLOCK FEEDER Sindhuja Sominidi Damodaran M.B.B.S., M. D. LAB PATH DERM ORDERABLES Performing Organization Address [facility] Co de Phone Number [facility] [address] [place] [address], [facility] PDR [address] [place] [address] * ECG 12 Lead (07/23/2023 3:27 PM BLOCK FEEDER) Only the most recent of3 resultswithin the time period is included. Ventricular Rate ECG/Min 66 BPM MUSE WA Interval 238 ms MUSE QRSD Interval 78 ms MUSE QT Interval 394 ms MUSE QTC Interval 413 ms MUSE P [place] 46 degrees MUSE R [place] 33 degrees MUSE T Wave [place] 60 degrees MUSE 07/23/2023 3:27 PM BLOCK FEEDER 07/23/2023 3:51 PM BLOCK FEEDER Impressions MUSE - 07/23/2023 3:51 PM BLOCK FEEDER Sinus rhythm with 1st degree A-V block Otherwise normal ECG When compared with ECG of 30-OCT-2020 16:33, Anterior forces have increased Reviewed by KALYAN Tom Narrative Procedure Note Dimitri Kern M.D., Ph.D. - 07/23/2023 IMPRESSION: Sinus rhythm with 1st degree A-V block Otherwise normal ECG When compared with ECG of 30-OCT-2020 16:33, Anterior forces have increased Reviewed by KALYAN Tom Hector Sandhu M.D., Ph.D. ECG ORDERABLES Performing Organization Address [facility] Co de Phone Number MUSE NA * Lipid Panel (07/19/2023 5:04 PM BLOCK FEEDER) Only the most recent of6 resultswithin the time period is included. Triglycerides 83 mg/dL 07/19/2023 5:28 PM BLOCK FEEDER CNFL Comment: ----REFERENCE VALUE---- Normal: <150 mg/dL Borderline High: 150-199 mg/dL High: 200-499 mg/dL Very High: > or =500 mg/dL Cholesterol, Total 154 mg/dL 2023 5:28 PM BLOCK FEEDER CNFL Comment: ----REFERENCE VALUE---- Desirable: < 200 mg/dL Borderline High: 200 - 239 mg/dL High: > or = 240 mg/dL Cholesterol, LDL, Calculated 82 mg/dL 07/19/2023 5:28 PM BLOCK FEEDER CNFL Comment: ----REFERENCE VALUE---- Desirable: <100 mg/dL Above Desirable: 100-129 mg/dL Borderline High: 130-159 mg/dL High: 160-189 mg/dL Very High: >=190 mg/dL ----ADDITIONAL INFORMATION---- LDL cholesterol calculated using the Berg/NIH equation. Cholesterol, HDL 56 >=40 mg/dL 07/19/19 5:28 PM BLOCK FEEDER CNFL Cholesterol, Non-HDL, Calculated 98 mg/dL 07/19/2023 5:28 PM BLOCK FEEDER CNFL Comment: ----REFERENCE VALUE---- Desirable: <130 mg/dL Above Desirable: 130-159 mg/dL Borderline High: 160-189 mg/dL High: 190-219 mg/dL Very High: > or =220 mg/dL Fasting (8 HR or more) yes 07/19/2023 5:06 PM BLOCK FEEDER CNFL Blood (Blood, Venous) 07/19/2023 5:04 PM BLOCK FEEDER 07/19/2023 5:06 PM BLOCK FEEDER Hector Sandhu M.D., Ph.D. LAB BLOOD ADD-O N Performing Organization Address [facility]/State/ZIP Co de Phone Number [facility] [address] [place] [phone], [facility] in [address] [address] * PSA (Prostate-Specific Antigen) Screen (07/19/2023 5:04 PM BLOCK FEEDER) Only the most recent of7 resultswithin the time period is included. Prostate-Specific Ag 4.0 <=6.5 ng/mL 07/19/2023 8:08 PM BLOCK FEEDER RDWG Comment: ----ADDITIONAL INFORMATION---- The testing method is an electrochemiluminescence assay manufactured by [employer] and performed on the Modular or [employer] system. Values obtained with different assay methods or kits may be different and cannot be used interchangeably. Test results cannot be interpreted as absolute evidence for the presence or absence of malignant disease. Blood (Blood, Venous) 07/19/2023 5:04 PM BLOCK FEEDER 07/19/2023 7:23 PM BLOCK FEEDER Hector Sandhu M.D., Ph.D. LAB BLOOD ADD-O N Performing Organization Address City/[facility]/ZIP Co de Phone Number [facility] [address] [place] [address], [facility] RDWG [facility] [place] [address] [place] [phone] * Hemoglobin A1c (07/19/2023 5:04 PM BLOCK FEEDER) Only the most recent of2 resultswithin the time period is included. Hemoglobin A1c, B 5.3 4.2 - 5.6 % 07/19/2023 5:25 PM BLOCK FEEDER CNFL Blood (Blood, Venous) 07/19/2023 5:04 PM BLOCK FEEDER 07/19/2023 5:06 PM BLOCK FEEDER Hector Sandhu M.D., Ph.D. LAB BLOOD ADD-O N Performing Organization Address City/[facility]/ZIP Co de Phone Number [facility] [address] [place] [address], [facility] CNFL [facility] in [address] [address] * Comprehensive Metabolic Panel (07/19/2023 5:04 PM BLOCK FEEDER) Only the most recent of6 resultswithin the time period is included. Potassium, P 4.1 3.6 - 5.2 mmol/L 07/19/2023 5:28 PM BLOCK FEEDER CNFL Sodium, P 140 135 - 145 mmol/L 07/19/2023 5:28 PM BLOCK FEEDER CNFL Chloride, P 106 98 - 107 mmol/L 07/19/2023 5:28 PM BLOCK FEEDER CNFL Bicarbonate, P 26 22 - 29 mmol/L 07/19/2023 5:28 PM BLOCK FEEDER CNFL Anion Gap, P 8 7 - 15 07/19/2023 5:28 PM BLOCK FEEDER CNFL BUN (Blood Urea Nitrogen), P 17 8 - 24 mg/dL 07/19/2023 5:28 PM BLOCK FEEDER CNFL Creatinine 0.85 0.74 - 1.35 mg/dL 07/19/2023 5:28 PM BLOCK FEEDER CNFL Estimated GFR (eGFR) >90 >=60 mL/min/BS A 07/19/2023 5:28 PM BLOCK FEEDER CNFL Comment: Estimated GFR calculated using the 2020 CKD_EPI creatinine equation. Calcium, Total, P 9.1 8.8 - 10.2 mg/dL 07/19/2023 5:28 PM BLOCK FEEDER CNFL Glucose, P 93 70 - 140 mg/dL 07/19/2023 5:28 PM BLOCK FEEDER CNFL Protein, Total, P 6.5 6.3 - 7.9 g/dL 07/19/2023 5:28 PM BLOCK FEEDER CNFL Albumin, P 4.2 3.5 - 5.0 g/dL 07/19/2023 5:28 PM BLOCK FEEDER CNFL Aspartate Aminotransferase (AST), P 17 8 - 48 U/L 07/19/2023 5:28 PM BLOCK FEEDER CNFL Alkaline Phosphatase, P 47 40 - 129 U/L 07/19/2023 5:28 PM BLOCK FEEDER CNFL Alanine Aminotransferase (ALT), P 12 7 - 55 U/L 07/19/2023 5:28 PM BLOCK FEEDER CNFL Bilirubin, Total, P 0.5 0.0 - 1.2 mg/dL 07/19/2023 5:28 PM BLOCK FEEDER CNFL Blood (Blood, Venous) 07/19/2023 5:04 PM BLOCK FEEDER 07/19/2023 5:06 PM BLOCK FEEDER Hector Sandhu M.D., Ph.D. LAB BLOOD ADD-O N [facility] [address] [place] [id number], [facility] CNFL [facility] in [address] [address] * DX Hip And Pelvis Left 2-3 Views (06/04/2023 10:27 AM BLOCK FEEDER) Anatomical Region Laterality Modality Lower Extremity, Pelvis, Hip , Musculoskeletal RST LOS, Musculoskeletal ARZ LOS, Muskuloskeletal FLA LOS Left Digit al Radiography 06/04/2023 11:0 0 AM BLOCK FEEDER Impressions 06/04/2023 11:01 AM BLOCK FEEDER Advanced degenerative changes left hip, which have progressed from prior radiographs on 04/28/2016. No pelvic fracture or dislocation. Advanced degenerative changes right hip. Degenerative changes lower lumbar spine. Narrative 06/04/2023 11:01 AM BLOCK FEEDER EXAM: DX HIP AND PELVIS LEFT 2-3 VIEWS Procedure Note Wilber Hebert M.D. - 06/04/2023 EXAM: DX HIP AND PELVIS LEFT 2-3 VIEWS IMPRESSION: Advanced degenerative changes left hip, which have progressed from priorradiographs on 04/28/2016. No pelvic fracture or dislocation. Advanceddegenerative changes right hip. Degenerative changes lower lumbar spine. Nadia Cuevas APRN, C.N.P., D.N.P. IMG DIAGNOSTIC IMAGING PROCEDURES * DX Knee Right 3 Views (11/19/2022 8:38 AM CDT) Only the most recent of2 resultswithin the time period is included. Anatomical Region Laterality Modality Lower Extremity, Knee, Muscu loskeletal RST LOS, Musculoskeletal ARZ LOS, Muskuloskeletal FLA LOS Right Digit al Radiography 11/19/2022 9:22 AM CDT Impressions 11/19/2022 9:25 AM CDT Tricompartmental degenerative arthritis right knee with moderate to marked medial compartment narrowing. Effusion or synovitis right knee. Right knee otherwise negative. Benign bone island proximal left tibia. Narrative 11/19/2022 9:25 AM CDT EXAM: ??DX KNEE RIGHT 3 VIEWS Procedure Note Heriberto Small M.D. - 11/19/2022 EXAM: DX KNEE RIGHT 3 VIEWS IMPRESSION: Tricompartmental degenerative arthritis right knee with moderate to markedmedial compartment narrowing. Effusion or synovitis right knee. Right kneeotherwise negative. Benign bone island proximal left tibia. Milind Smalls APRNNAry, Erwin.N.P. IMG TRISTON GNOSTIC IMAGING PROCEDURES * MR Pituitary without and with IV Contrast (11/11/2022 9:30 AM CDT) Only the most recent of3 resultswithin the time period is included. Anatomical Region Laterality Modality Head, Neuroradiology RST LOS , Neuroradiology ARZ LOS, Neuroradiology FLA LOS N/A Magnetic Resonance 11/11/2022 10:5 1 AM CDT Impressions 11/11/2022 11:42 AM CDT Treatment response with decreasing size of the recurrent anterior pituitary adenoma as described. Narrative 11/11/2022 11:42 AM CDT EXAM: MR PITUITARY WITHOUT AND WITH IV CONTRAST COMPARISON: Pituitary/sella MRI exams dated 11/17/2021 and 01/30/2021. FINDINGS: History of pituitary prolactinoma resected in 1989. Recurrence was treated with gamma knife radiosurgery on 04/29/2021. Continued decreased size of the gamma knife treated exophytic pituitary adenoma in the anterior gland. The nodule measures 5 mm in height on today's study, previously measured approximately 9 mm on 11/17/2021. The michael dominant focus of T1 hyperintensity is consistent with chronic hemorrhagic/proteinaceous cystic change. No contact with the optic chiasm on today's study. A small amount of periventricular and subcortical T2 white matter signal is nonspecific often related to small vessel change. Procedure Note Alvin Beyer M.D. - 11/11/2022 EXAM: MR PITUITARY WITHOUT AND WITH IV CONTRAST COMPARISON: Pituitary/sella MRI exams dated 11/17/2021 and 01/30/2021. FINDINGS: History of pituitary prolactinoma resected in 1989. Recurrencewas treated with gamma knife radiosurgery on 04/29/2021. Continued decreased size of the gamma knife treated exophytic pituitaryadenoma in the anterior gland. The nodule measures 5 mm in height on today's study, previouslymeasured approximately 9 mm on 11/17/2021. The michael dominant focus of T1 hyperintensity isconsistent with chronic hemorrhagic/proteinaceous cystic change. No contact with the optic chiasmon today's study. A small amount of periventricular and subcortical T2 white matter signal isnonspecific often related to small vessel change. IMPRESSION: Treatment response with decreasing size of the recurrent anteriorpituitary adenoma as described. Delta Parrish M.D. IMG MRI PROCEDURES * Automated VF - Extended - OU - Both Eyes (10/20/2022 1:03 PM CDT) Narrative OPHTHALMOLOGY IMAGING EXAM - 10/20/2022 1:03 PM CDT Right Eye Automated visual field device used was Zeiss. Strategy was MONICA. Threshold was 24-2. Left Eye Automated visual field device used was Zeiss. Strategy was MONICA. Threshold was 24-2. Notes Full both eyes Justin Caldwell M.D. OPHTH VISUAL FI ELD OPHTHALMOLOGY IMAGING EXAM * DX Chest AP or PA and Lateral 2 Views (10/06/2022 2:30 PM CDT) Only the most recent of4 resultswithin the time period is included. Anatomical Region Laterality Modality Chest, Thoracic RST LOS, Tho racic ARZ LOS, Thoracic FLA LOS N/A Digital Radiography 10/06/2022 2:48 PM CDT Impressions 10/06/2022 2:49 PM CDT No change since 10/30/2020. Mild biapical scarring. Mildly tortuous aorta. Mild degenerative change thoracic spine. Mild anterior wedging of a couple mid thoracic vertebral bodies. Narrative 10/06/2022 2:49 PM CDT EXAM: ??DX CHEST AP OR PA AND LATERAL 2 VIEWS Procedure Note Sebastian Parada M.D. - 10/06/2022 EXAM: DX CHEST AP OR PA AND LATERAL 2 VIEWS IMPRESSION: No change since 10/30/2020. Mild biapical scarring. Mildly tortuous aorta.Mild degenerative change thoracic spine. Mild anterior wedging of a couple midthoracic vertebral bodies. Hector Sandhu M.D., Ph.D. [facility] DIAGNOSTIC IMAGING PROCEDURES * Colonoscopy-Gastroenterology Image Exam (05/22/2022 9:30 AM BLOCK FEEDER) Only the most recent of2 resultswithin the time period is included. 05/22/2022 9:29 AM BLOCK FEEDER Narrative IIMS - 05/22/2022 9:34 AM BLOCK FEEDER This order has been created and auto-finalized to support the import of images acquired without order. The clinical documentation to support these images can be found on the encounter that produced images. Provider Not In System IMG NON RAD IMAGI NG PROCEDURES IIMS NA * COLONOSCOPY (05/22/2022 9:29 AM BLOCK FEEDER) Narrative Procedure Note Hardy Dhaliwal M.D. - 05/22/2022 9:29 AM CST [facility] Patient Name: Delroy Nelson Procedure Date: 05/22/2022 9:29 AM Date of : 1950 Age: 71 Gender: Male Procedure: Colonoscopy Providers: Hardy Dhaliwal MD, Hector Sandhu (Ordering Provider) Referring Provider: Hector Sandhu Pre-op Diagnoses: High risk colon cancer surveillance: Personal history of colonic polyps Post-op Diagnoses: - Three 2 to 4 mm polyps in the transverse colon and in the ascending colon, removed with a cold snare. Complete resection. Partialretrieval. - One 1 mm polyp in the ascending colon, removed with a cold biopsy forceps. Resected and retrieved. - Diverticulosis in the sigmoid colon. - The examination was otherwise normal on direct and retroflexionviews. Recommendation: - Repeat colonoscopy in 3 years for surveillance. Findings: The perianal and digital rectal examinations were normal. Three sessile polyps were found in the transverse colon and ascending colon. The polyps were 2 to 4 mm in size. These polyps were removedwith a cold snare. Resection was complete, but the polyp tissue was only partially retrieved. A 1 mm polyp was found in the ascending colon. The polyp was sessile. The polyp was removed with a cold biopsy forceps. Resection and retrieval were complete. Multiple small-mouthed diverticula were found in the sigmoid colon. The exam was otherwise without abnormality on direct and retroflexion views. Medicines: Monitored Anesthesia Care Estimated Blood Loss: Estimated blood loss: none. Complications: No immediate complications. Procedure Details: The patient was seen, evaluated, and history reviewed. Airway and heart and lung exams were performed and were satisfactory for plannedsedation care. The risks, benefits and alternatives for the procedure and sedation were discussed andinformed consent was obtained. A procedural pause was conducted in the presence of assisting personnelto verify the correct patient identity and procedureto be performed. Throughout the procedure, the patient's blood pressure, pulse, and oxygen saturations were monitored continuously. The Colonoscope was introduced under directvision through the anus and advanced to the cecum, identified by appendiceal orifice and ileocecal valve. The colonoscopy was performed without difficulty. The patient tolerated the procedure well. The quality of the bowel preparation was evaluated using the BBPS (Chester BowelPreparation Scale) with scores of: Right Colon = 3,Transverse Colon = 3 and Left Colon = 3 (entire mucosa seen well with no residual staining, small fragmentsof stool or opaque liquid). The total BBPS scoreequals 9. Sedation: BHARAT Dhaliwal MD 05/22/2022 9:31:32 AM This report has been signed electronically. Number of Addenda: 0 Note Initiated On: 05/22/2022 9:29 AM Hector Sandhu M.D., Ph.D. GI PROCEDURE OR DERABLES * Surgical Pathology (05/22/2022 9:17 AM BLOCK FEEDER) 05/25/2022 10:02 AM BLOCK FEEDER ECLR Report electronically signed by Jayden Gerard M.D. 05/25/2022 10:02 AM BLOCK FEEDER ECLR Specimen Received Ascending colon, transverse colon polyp 05/25/2022 10:02 AM BLOCK FEEDER ECLR Clinical History Colon cancer screening 05/25/2022 10:02 AM BLOCK FEEDER ECLR Gross Description Received in a container labeled ??ascending colon, transverse colon are two tissues, 0.8 cm to 1.1 cm. All submitted in cassette A1. [id number] 05/25/2022 10:02 AM BLOCK FEEDER ECLR Interpretation FINAL DIAGNOSIS Colon, ascending and transverse, biopsy: ??Fragments of tubular adenomas and normal colonic mucosa. 05/25/2022 10:02 AM BLOCK FEEDER ECLR Polyp (Colon) 05/22/2022 9:1 7 AM BLOCK FEEDER Hardy Dhaliwal M.D. LAB SURG PATH ORDERA BLES Performing Organization Address [facility] de Phone Number [facility] [address] [place] [address], [facility] ECLR [facility] [place] [address] * [place] ARTHCS ASP/INJ MJR JT WO US (04/16/2022 1:45 PM CDT) Narrative MMODAL - 04/16/2022 1:45 PM CDT Nicolasa Nichols L.P.N. ? 04/28/2022 ??7:36 AM Knee site- R knee joint : injection only Performed by: Arpan Alejo M.D. Authorized by: Arpan Alejo M.D. PROCEDURE DETAILS Procedure Location knee Knee site: R knee joint Site prep: patient was prepped and draped in usual sterile fashion ?? Procedural approach: anterolateral Procedure performed: injection only Needle gauge: 22 G Procedural Medication The following medications were administered at the target site(s) Local anesthetic: 8 mL lidocaine 10 mg/mL (1 %) Corticosteroid: 60 mg triamcinolone acetonide 40 mg/mL PRE-PROCEDURE DETAILS Procedure purpose: therapeutic and diagnostic Indications: Right knee pain Site preparation: povidone-iodine SEDATION / ANESTHESIA Anesthesia method: none POST-PROCEDURE DETAILS Procedure completed successfully: yes Complications: no apparent complications ?? Post-procedure instructions: avoid strenuous activity for 5 days Discharge instructions: dressing care and follow-up with ordering provider Arpan Alejo M.D. PROCEDURE/MINOR MINOR RGICAL ORDERABLES Performing Organization Address [facility] Co de Phone Number MMODAL NA * [place] ARTHCS ASP/INJ MJR JT WO US (01/02/2022 10:35 AM CDT) Narrative MMODAL - 01/02/2022 10:35 AM CDT Sondra Rodriguez R.N. ? 01/02/2022 10:39 AM Knee site- R knee joint : injection only Date/Time: 01/02/2022 10:35 AM Performed by: Christen Rosa APRN, C.N.PMaxime, D.N.P. Authorized by: Christen Rosa APRN, C.N.P., D.N.P. PROCEDURE DETAILS Procedure Location knee Knee site: R knee joint Site prep: patient was prepped and draped in usual sterile fashion ?? Procedural approach: anterolateral Procedure performed: injection only Needle gauge: 22 G Procedural Medication The following medications were administered at the target site(s) Local anesthetic: 5 mL lidocaine 10 mg/mL (1 %) Corticosteroid: 60 mg triamcinolone acetonide 40 mg/mL PRE-PROCEDURE DETAILS Procedure purpose: therapeutic Indications: Right knee pain Site preparation: povidone-iodine SEDATION / ANESTHESIA Anesthesia method: none POST-PROCEDURE DETAILS Procedure completed successfully: yes Complications: no apparent complications ?? Post-procedure instructions: avoid strenuous activity for 5 days Discharge instructions: dressing care and follow-up with ordering provider Christen Rosa APRN, C.N.P., D.N.P. PROCEDU RE/MINOR SURGICAL ORDERABLES Performing Organization Address City/[facility] Co de Phone Number MMODAL NA * (ABNORMAL) EXT Home SARS Coronavirus-2 (COVID-19) Antigen, Varies (12/20/2021) EXT Home SARS-CoV-2 Antigen Presumptive Positive(A) Presumptive Negative OTHER (SPECIFY IN CHINA DECORATOR) Swab 12/20/2021 Historical Provider LAB MICROBIOLOGY - G ENERAL ORDERABLES OTHER (SPECIFY IN [place] DECORATOR) N/A * Visual Trevino (VF)-Ophthalmology Image Exam (11/25/2021 3:25 PM CDT) Only the most recent of2 resultswithin the time period is included. 11/25/2021 3:21 PM CDT Narrative IIMS - 11/25/2021 3:37 PM CDT This order has been created and auto-finalized to support the import of images acquired without order. The clinical documentation to support these images can be found on the encounter that produced images. Provider Not In System IMG NON RAD IMAGI NG PROCEDURES Performing Organization Address [facility] Co de Phone Number IIMS NA * Automated VF - Limited - OU - Both Eyes (11/25/2021 3:24 PM CDT) Narrative OPHTHALMOLOGY IMAGING EXAM - 11/25/2021 3:58 PM CDT Right Eye Automated visual field device used was Zeiss. Strategy was MONICA. Threshold was 24-2. Eyelid was untaped. Left Eye Automated visual field device used was Zeiss. Strategy was MONICA. Threshold was 24-2. Eyelid was untaped. Delta Parrish M.D. OPHTH VISUAL FIELD Performing Organization Address [facility] de Phone Number OPHTHALMOLOGY IMAGING EXAM * DX Foot Ankle Left 3+ Views (10/06/2021 12:30 PM CDT) Anatomical Region Laterality Modality Lower Extremity, Foot, Ankle , Musculoskeletal RST LOS, Musculoskeletal ARZ LOS, Muskuloskeletal FLA LOS Left Digit al Radiography 10/06/2021 12:4 0 PM CDT Impressions 10/06/2021 12:41 PM CDT Soft tissue swelling about both ankles. Left hindfoot valgus and pes planus. 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 Small Achilles and plantar calcaneal spurs. Narrative 10/06/2021 12:41 PM CDT EXAM: ??DX FOOT ANKLE LEFT 3+ VIEWS Procedure Note Prasanth Márquez M.D. - 10/06/2021 EXAM: DX FOOT ANKLE LEFT 3+ VIEWS IMPRESSION: Soft tissue swelling about both ankles. Left hindfoot valgus and pesplanus. 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 SmallAchilles and plantar calcaneal spurs. Guillermo Johnson M.D. IMG DIAGNOSTIC KRISTY GING PROCEDURES * DX Elbow Left 2 Views (09/29/2021 3:16 PM CDT) Anatomical Region Laterality Modality Upper Extremity, Elbow, Musc uloskeletal RST LOS, Musculoskeletal ARZ LOS, Muskuloskeletal FLA LOS Left Digit al Radiography 09/29/2021 3:35 PM CDT Impressions 09/29/2021 3:35 PM CDT Marked soft tissue swelling adjacent to the left olecranon process compatible with bursitis. Diffuse soft tissue swelling about the elbow, distal arm and proximal forearm. Mild hypertrophic changes ulnohumeral articulation. Narrative 09/29/2021 3:35 PM CDT EXAM: ??DX ELBOW LEFT 2 VIEWS Procedure Note Carleen Ely M.D. - 09/29/2021 EXAM: DX ELBOW LEFT 2 VIEWS IMPRESSION: Marked soft tissue swelling adjacent to the left olecranon processcompatible with bursitis. Diffuse soft tissue swelling about the elbow, distal arm andproximal forearm. Mild hypertrophic changes ulnohumeral articulation. Kristi Sheldon G DIAGNOSTIC IMAGI NG PROCEDURES * DX Foot Left 3+ Views (09/05/2021 11:54 AM BLOCK FEEDER) Anatomical Region Laterality Modality Lower Extremity, Foot, Muscu loskeletal RST LOS, Musculoskeletal ARZ LOS, Muskuloskeletal FLA LOS Left Digit al Radiography 09/05/2021 2:49 PM BLOCK FEEDER Impressions 09/05/2021 2:54 PM BLOCK FEEDER Pes planus and hindfoot valgus. Moderate/advanced degenerative change at the first TMT joint. Additional mild polyarticular degenerative change. No acute displaced fracture. Small Achilles calcaneal spur. No radiopaque foreign body. Narrative 09/05/2021 2:54 PM BLOCK FEEDER EXAM: DX FOOT LEFT 3+ VIEWS Procedure Note Elizabeth Canales M.D. - 09/05/2021 EXAM: DX FOOT LEFT 3+ VIEWS IMPRESSION: Pes planus and hindfoot valgus. Moderate/advanced degenerative change atthe first TMT joint. Additional mild polyarticular degenerative change. No acutedisplaced fracture. Small Achilles calcaneal spur. No radiopaque foreign body. Hector Sandhu M.D., Ph.D. IMG DIAGNOSTIC IMAGING PROCEDURES * Sedimentation Rate (09/02/2021 4:50 PM BLOCK FEEDER) Sedimentation Rate, B 16 0 - 22 mm/1 h 09/02/2021 8:12 PM BLOCK FEEDER RDWG Blood (Blood, Venous) 09/02/2021 4:50 PM BLOCK FEEDER 09/02/2021 7:35 PM BLOCK FEEDER Hector Sandhu M.D., Ph.D. LAB BLOOD ADD-O N Performing Organization Address [facility] Co de Phone Number [facility] [address] [place] [phone], [facility] RDWG [facility] in [address] [id number] * CK (Creatine Kinase) (09/02/2021 4:50 PM BLOCK FEEDER) Pathologist [facility] Creatine Kinase, P 72 39 - 308 U/L 09/02/2021 5:13 PM BLOCK FEEDER CNIN Blood (Blood, Venous) 09/02/2021 4:50 PM BLOCK FEEDER 09/02/2021 4:53 PM BLOCK FEEDER Hector Sandhu M.D., Ph.D. LAB BLOOD ADD-O N Performing Organization Address [facility]/ZIP Co de Phone Number [facility] [address] [place] [id number], [facility] [address] [address] * SARS Coronavirus-2 RNA, V Symptomatic (06/24/2021 8:57 AM BLOCK FEEDER) Only the most recent of5 resultswithin the time period is included. SARS-CoV-2 Specimen Source Swab, Nasopharynx 06/25/2021 12:30 AM BLOCK FEEDER ECLR SARS CoV-2 RNA, TMA Undetected Undetected 06/25/2021 12:30 AM BLOCK FEEDER ECLR Comment: SARS-CoV-2 RNA absent. This result does not rule out COVID-19 in the patient, as the sensitivity of the test depends on the timing of the specimen collection and the quality of the specimen. Result should be correlated with patient's history and clinical presentation. ----ADDITIONAL INFORMATION---- This molecular amplification test was performed using the Aptima SARS-CoV-2 assay ([employer] on the [employer] System under emergency use authorization (EUA) by the U.S. Food and Drug Administration. Fact sheets for this EUA assay can be found at the following links: For Healthcare Providers: https://www.fda.gov/media/818448/download For Patients: https://www.fda.gov/media/918095/download Varies (Nasopharynx) 06/24/2021 8:57 AM BLOCK FEEDER 06/24/2021 3:20 PM BLOCK FEEDER Arsenio Tracey P.A.-C., P.A. LAB MICR OBIOLOGY - GENERAL ORDERABLES [facility] [address] [place] [address], [facility] ECLR [facility] [place] [address] * Aria Daily Treatment Information (04/29/2021 10:29 AM CDT) Course ID [id number] Pituitary CASTRO ARIA Course Start Date 04/28/2021 11:01 CDT CASTRO ARIA First Treatment Date 04/29/2021 10:29 CDT CASTRO ARIA Last Treatment Date 04/29/2021 10:29 CDT CASTRO ARIA Treatment Elapsed Days 0 CASTRO ARIA Reference Point Pituitary CASTRO ARIA Dosage Given to Date cGy 1800 CASTRO ARIA Session Dosage Given 1800 CASTRO ARIA Plan ID [id number] Pituitary CASTRO ARIA Fractions Treated to Date 1 CASTRO ARIA Planned Total Fractions 1 CASTRO ARIA Prescribed Dose Per Fraction 1800 CASTRO ARIA Prescription Dose in cGy 1800 [facility] Plan Primary Reference Point Pituitary [facility] 04/29/2021 10:2 9 AM CDT Provider Not In System RADIATION ONCOLOG Y ORDERABLES GLORIA GRANDE na * MR Brain with IV Contrast (04/29/2021 8:02 AM CDT) Anatomical Region Laterality Modality Head, Brain, Neuroradiology RST LOS, Neuroradiology ARZ LOS, Neuroradiology FLA LOS N/A Magnetic Resonance 04/29/2021 1:13 PM CDT Impressions 04/29/2021 1:19 PM CDT Limited examination of the brain in preparation for gamma knife treatment for likely pituitary adenoma. Narrative 04/29/2021 1:19 PM CDT EXAM: MR BRAIN WITH IV CONTRAST COMPARISON: Prior brain MRIs including the most recent one dated 01/30/2021. FINDINGS: Limited imaging of the brain in preparation for gamma knife treatment. Susceptibility artifact arises from fixation hardware. Allowing for differences in technique, there has been no significant interval change in the appearance of the heterogeneous pituitary lesion measuring approximately 1.0 cm in greatest cross-section most consistent with a pituitary adenoma. The pituitary lesion fills the pituitary fossa in the midline and extends superiorly into the suprasellar cistern where it appears to contact the inferomedial surface of the prechiasmatic segment of the left optic nerve. The infundibulum is in the midline, posteriorly displaced. No compression of the optic chiasm. The lesion into the cavernous sinuses. Procedure Note Grace Lynne M.D. - 04/29/2021 EXAM: MR BRAIN WITH IV CONTRAST COMPARISON: Prior brain MRIs including the most recent one dated01/30/2021. FINDINGS: Limited imaging of the brain in preparation for gamma knife treatment. Susceptibility artifact arises from fixation hardware. Allowing for differences in technique, there has been no significantinterval change in the appearance of the heterogeneous pituitary lesion measuring approximately 1.0 cm in greatest cross-section most consistent with apituitary adenoma. The pituitary lesion fills the pituitary fossa in the midlineand extends superiorly into the suprasellar cistern where it appears tocontact the inferomedial surface of the prechiasmatic segment of the left optic nerve.The infundibulum is in the midline, posteriorly displaced. No compression ofthe optic chiasm. The lesion into the cavernous sinuses. IMPRESSION: Limited examination of the brain in preparation for gamma knife treatment for likely pituitary adenoma. Delta Parrish M.D. IMG MRI PROCEDURES * Creatinine with Estimated GFR (04/28/2021 11:43 AM CDT) Only the most recent of2 resultswithin the time period is included. Creatinine 1.06 0.74 - 1.35 mg/dL 04/28/2021 1:05 PM CDT DTL eGFR-Non Black/ 70 >=60 mL/min/BSA 04/28/2021 1:05 PM CDT DTL Comment: ----ADDITIONAL INFORMATION---- Estimated GFR calculated using the 2009 CKD_EPI creatinine equation. eGFR-Black/Afric an Danish 81 >=60 mL/min/BSA 04/28/2021 1:05 PM CDT DTL Comment: ----ADDITIONAL INFORMATION---- Estimated GFR calculated using the 2009 CKD_EPI creatinine equation. Blood (Blood, Venous) 04/28/2021 11:43 AM CDT 04/28/2021 12:21 PM CDT Delta Parrish M.D. LAB BLOOD ADD-ON [facility] [address] DTL [facility] [address] [place] [address] * [place] ARTHCS ASP/INJ MJR JT WO US (03/07/2021 10:24 AM CDT) Narrative MMODAL - 03/07/2021 10:24 AM CDT Sara Leo L.P.N. ? 03/20/2021 ??7:47 AM Knee site- R knee joint : injection only Date/Time: 03/07/2021 10:24 AM Performed by: Arpan Alejo M.D. Authorized by: Arpan Alejo M.D. PROCEDURE DETAILS Procedure Location knee Knee site: R knee joint Site prep: patient was prepped and draped in usual sterile fashion ?? Procedural approach: anterolateral Procedure performed: injection only Needle gauge: 22 G Procedural Medication The following medications were administered at the target site(s) Local anesthetic: 5 mL lidocaine 10 mg/mL (1 %) Corticosteroid: 60 mg triamcinolone acetonide 40 mg/mL PRE-PROCEDURE DETAILS Procedure purpose: therapeutic and diagnostic Indications: Right knee pain Site preparation: povidone-iodine SEDATION / ANESTHESIA Anesthesia method: none POST-PROCEDURE DETAILS Procedure completed successfully: yes Complications: no apparent complications ?? Post-procedure instructions: avoid strenuous activity for 5 days Discharge instructions: dressing care and follow-up with ordering provider Arpan Alejo M.D. PROCEDURE/MINOR MINOR RGICAL ORDERABLES Performing Organization Address City/[facility] Co de Phone Number MMODAL NA * Pulmonary Function Tests (02/22/2021 9:23 AM CDT) Hector Sandhu M.D., Ph.D. PFT ORDERABLES Performing Organization Address [facility] Co de Phone Number [facility] NA * (ABNORMAL) Prolactin, Pituitary Macroadenoma (01/30/2021 8:51 AM CDT) Prolactin Total 52(H) 4.0 - 15.2 ng/mL 01/31/2021 10:18 AM CDT DTL Comment SEE COMMENT 01/31/2021 10:18 AM CDT DTL Comment: 10,100,and 400-fold dilutions produced results consistent with the absence of high-dose hook effects. ----ADDITIONAL INFORMATION---- The testing method is an electrochemiluminescence assay manufactured by [employer] and performed on the Man system. Values obtained with different assay methods or kits may be different and cannot be used interchangeably. Test results cannot be interpreted as absolute evidence for the presence or absence of malignant disease. Blood (Blood, Venous) 01/30/2021 8:51 AM CDT 01/31/2021 8:21 AM CDT Mauri Marquez Jr., M.D. LAB BLOOD ADD-ON [facility] [address] [place] [address], [place] DTL [facility] [address] [place] [address] * T4 (Thyroxine), Free (01/30/2021 8:51 AM CDT) Only the most recent of2 resultswithin the time period is included. T4 (Thyroxine), Free, P 0.9 0.9 - 1.7 ng/dL 01/30/2021 1:53 PM CDT RDWG Comment: Biotin has been identified by the hand bootmaker as a potential interfering substance. ??Higher concentrations of biotin may be found in multivitamins, hair/nail supplements, and workout supplements. ??If the result does not match clinical observations, repeat testing after patient refrains from the use of supplements for at least 12 hours. Blood (Blood, Venous) 01/30/2021 8:51 AM CDT 01/30/2021 1:13 PM CDT Mauri Marquez Jr., M.D. LAB BLOOD ADD-ON [facility] [address] [place] [address], [facility] RDWG [facility] [place] [address] [place] [id number] * Cortisol (01/30/2021 8:51 AM CDT) Only the most recent of2 resultswithin the time period is included. Cortisol AM Result 10 4.8 - 20 mcg/dL 01/30/2021 4:08 PM CDT ECLR Comment: Biotin has been identified by the hand bootmaker as a potential interfering substance. ??Higher concentrations of biotin may be found in multivitamins, hair/nail supplements, and workout supplements. ??If the result does not match clinical observations, repeat testing after patient refrains from the use of supplements for at least 12 hours. Blood (Blood, Venous) 01/30/2021 8:51 AM CDT 01/30/2021 3:24 PM CDT Mauri Marquez Jr., M.D. LAB BLOOD ADD-ON [facility] [address] [place] [address], [facility] ECLR [facility] [place] [address] [place] [address] * CT Chest Angiogram and Pulmonary Arteries with IV Contrast (12/17/2020 11:19 AM CDT) Anatomical Region Laterality Modality Chest, Cardiovascular RST LO S, Thoracic ARZ LOS, Thoracic FLA LOS N/A Computed Tomography 12/17/2020 11:3 1 AM CDT Impressions 12/17/2020 11:41 AM CDT 1. ??Negative for acute pulmonary embolism. 2. ??Mild biventricular enlargement. Otherwise no acute findings in the chest. Narrative 12/17/2020 11:41 AM CDT EXAM: CT CHEST ANGIOGRAM AND PULMONARY ARTERIES WITH IV CONTRAST Including 3-D image postprocessing. COMPARISON: None FINDINGS: No charges negative for acute pulmonary embolism. No evidence right heart strain. Scattered calcified atherosclerotic disease with coronary artery calcifications. Mild enlargement of both ventricles. Conventional branching pattern of the aortic arch. The proximal great vessels are widely patent. No aortic aneurysm, dissection or penetrating ulcer. Mild bronchial thickening. Trace dependent atelectasis in both lung bases. No worrisome pulmonary nodules. The visualized upper abdominal organs are unremarkable. Scattered degenerative disc disease throughout the thoracic spine. Procedure Note Rashad Henderson M.D. - 12/17/2020 EXAM: CT CHEST ANGIOGRAM AND PULMONARY ARTERIES WITH IV CONTRAST Including 3-D image postprocessing. COMPARISON: None FINDINGS: No charges negative for acute pulmonary embolism. No evidenceright heart strain. Scattered calcified atherosclerotic disease with coronaryartery calcifications. Mild enlargement of both ventricles. Conventionalbranching pattern of the aortic arch. The proximal great vessels are widely patent.No aortic aneurysm, dissection or penetrating ulcer. Mild bronchial thickening. Trace dependent atelectasis in both lung bases.No worrisome pulmonary nodules. The visualized upper abdominal organs are unremarkable. Scattered degenerative disc disease throughout the thoracicspine. IMPRESSION: 1. Negative for acute pulmonary embolism. 2. Mild biventricular enlargement. Otherwise no acute findings in thechest. Hector Sandhu M.D., Ph.D. IMG CT PROCEDUR ES * ECHO STRESS 2D WITH COLOR, LIMITED DOPPLER AND CONTRAST (12/09/2020 3:09 PM CDT) [facility] Ejection Fraction 60 MC CV EIMS Sinus of Valsalva 37 MC CV EIMS Mid-Ascending Aorta 39 MC CV EIMS Wall Motion Score Index 1.00 MC CV EIMS LV Mass Index 95 MC CV EIMS LV End-Diastolic Diameter 55 MC CV EIMS LV End-Systolic Diameter 35 MC CV EIMS MV E Velocity 0.6 MC CV EIMS MV A Velocity 0.8 MC CV EIMS MV E/A 0.75 MC CV EIMS MV e' Velocity Medial 0.07 MC CV EIMS MV E/e' Medial 8.6 MC CV EIMS LV Interventricular Septal Wall Thickness 10 MC CV EIMS LV Posterior Wall Thickness 11 MC CV EIMS LV Relative Wall Thickness 40 MC CV EIMS TR Vmax 2.24 MC CV EIMS RA Pressure 5 MC CV EIMS RV Systolic Pressure 25 MC CV EIMS LA Volume Index 39 MC CV EIMS WMSI At Rest 1.00 MC CV EIMS WMSI At Peak Stress 1.00 MC CV EIMS Anatomical Region Laterality Modality Echocardiography 12/09/2020 1:10 PM CDT Impressions 12/10/2020 4:31 PM CDT STRESS TEST: ??The baseline ECG demonstrated sinus rhythm. ??The patient exercised for 9:22 min:sec on the Delta protocol. ??The patient achieved a workload of 10.4 METS and 113 % FAC. Peak performance may have been compromised by the need to wear a mask during exercise. ??A peak heart rate of 146 BPM was achieved (98 % age-predicted maximal HR). ??Blood pressure at rest 140 mmHg/80 mmHg. ??Blood pressure with exercise 170 mmHg/80 mmHg. ??Normal blood pressure response to exercise. ??The test was terminated due to dyspnea. ??With stress, there were no S-T changes. The stress ECG was negative for ischemia. ??Please see Nursing Notes for additional information. LEFT VENTRICLE: ??Intravenous Definity ultrasound enhancement agent(s) administered to enhance endocardial border definition. ??Normal left ventricular chamber size. ??No regional wall motion abnormalities. ??Normal left ventricular wall thickness. ??Normal left ventricular diastolic function. ??RIGHT VENTRICLE: ??Normal right ventricular chamber size. ??Normal right ventricular function. ??Estimated right ventricular systolic pressure 25 mmHg. ??ATRIA: ??Mildly enlarged left atrial size. ??Left atrial volume index 39 ml/m^2. ??Normal right atrial size. ??CARDIAC VALVES: Trileaflet aortic valve. ??Normal aortic valve. ??No aortic valve regurgitation. ??Mitral valve posterior leaflet prolapse (mild). ??Trivial mitral valve regurgitation. ??Normal pulmonary valve. ??Normal tricuspid valve. ??Trivial tricuspid valve regurgitation. ??OTHER ECHO FINDINGS: Normal mid ascending aorta diameter (diameter 39 mm at mid level). ??No intracardiac mass or thrombus, but the left atrial appendage cannot be visualized adequately with transthoracic echo to exclude thrombus in this location. ??No pericardial effusion. ??STRESS IMAGES: INTERPRETATION: ??Exercise echocardiogram negative for myocardial ischemia. ??The patient's exercise capacity was good although peak performance may have been compromised by the need to wear a mask during exercise. ??Ejection fraction response from 60 % at rest to 70 % at peak stress. ??Left ventricular end-systolic volume decreased with stress. For the complete report, see the Order-Level Documents. Narrative 12/10/2020 4:31 PM CDT For the complete report, see the Order-Level Documents. Final Impressions 1. Exercise echocardiogram negative for myocardial ischemia. 2. The patient's exercise capacity was good although peak performance may have been compromised by the need to wear a mask during exercise. 3. The patient achieved a workload of 10.4 METS and 113 % FAC. 4. Ejection fraction response from 60 % at rest to 70 % at peak stress. 5. Left ventricular end-systolic volume decreased with stress. 6. The stress ECG was negative for ischemia. 7. The test was terminated due to dyspnea. ??No angina. Procedure Note Jayy Marks M.D. - 12/10/2020 For the complete report, see the Order-Level Documents. Final Impressions 1. Exercise echocardiogram negative for myocardial ischemia. 2. The patient's exercise capacity was good although peak performance mayhave been compromised by the need to wear a mask during exercise. 3. The patient achieved a workload of 10.4 METS and 113 % FAC. 4. Ejection fraction response from 60 % at rest to 70 % at peak stress. 5. Left ventricular end-systolic volume decreased with stress. 6. The stress ECG was negative for ischemia. 7. The test was terminated due to dyspnea. No angina. Findings STRESS TEST: The baseline ECG demonstrated sinus rhythm. The patientexercised for 9:22 min:sec on the Delta protocol. The patient achieved a workload of 10.4METS and 113 % FAC. Peak performance may have been compromised by the need to wear a maskduring exercise. A peak heart rate of 146 BPM was achieved (98 % age-predicted maximal HR). Bloodpressure at rest 140 mmHg/80 mmHg. Blood pressure with exercise 170 mmHg/80 mmHg. Normalblood pressure response to exercise. The test was terminated due to dyspnea. With stress, therewere no S-T changes. The stress ECG was negative for ischemia. Please see Nursing Notes foradditional information. LEFT VENTRICLE: Intravenous Definity ultrasound enhancement agent(s)administered to enhance endocardial border definition. Normal left ventricular chamber size. Noregional wall motion abnormalities. Normal left ventricular wall thickness. Normal leftventricular diastolic function. RIGHT VENTRICLE: Normal right ventricular chamber size.Normal right ventricular function. Estimated right ventricular systolic pressure 25 mmHg. ATRIA:Mildly enlarged left atrial size. Left atrial volume index 39 ml/m^2. Normal right atrialsize. CARDIAC VALVES: Trileaflet aortic valve. Normal aortic valve. No aortic valveregurgitation. Mitral valve posterior leaflet prolapse (mild). Trivial mitral valve regurgitation.Normal pulmonary valve. Normal tricuspid valve. Trivial tricuspid valve regurgitation.OTHER ECHO FINDINGS: Normal mid ascending aorta diameter (diameter 39 mm at mid level). Nointracardiac mass or thrombus, but the left atrial appendage cannot be visualized adequatelywith transthoracic echo to exclude thrombus in this location. No pericardial effusion. STRESSIMAGES: INTERPRETATION: Exercise echocardiogram negative for myocardial ischemia.The patient's exercise capacity was good although peak performance may have beencompromised by the need to wear a mask during exercise. Ejection fraction response from 60 % at restto 70 % at peak stress. Left ventricular end-systolic volume decreased with stress. For the complete report, see the Order-Level Documents. Hector Sandhu M.D., Ph.D. CV ECHO PROCEDU RES * (ABNORMAL) NT-Pro B-Type Natriuretic Peptide (BNP) (10/30/2020 4:49 PM CDT) NT-Pro BNP 108(H) <=103 pg/mL 10/30/2020 5:22 PM CDT CNFL Comment: NT-proBNP values less than 300 pg/mL have a 99% negative predictive value for excluding acute congestive heart failure. A cutoff of 1200 pg/mL for patients with an eGFR<60 yields a diagnostic sensitivity and specificity of 89% and 72% for acute congestive heart failure. ??A diagnostic NT-proBNP cutoff of 900 pg/mL has been suggested in adults 50-75 years of age in the absence of renal failure. Biotin has been identified by the hand bootmaker as a potential interfering substance. ??Higher concentrations of biotin may be found in multivitamins, hair/nail supplements, and workout supplements. ??If the result does not match clinical observations, repeat testing after patient refrains from the use of supplements for at least 12 hours. Blood (Blood, Venous) 10/30/2020 4:49 PM CDT 10/30/2020 4:53 PM CDT Hector Sandhu M.D., Ph.D. LAB BLOOD ADD-O N [facility] [address] [place] [id number], [place] [facility] [address] [address] * Automated VF - Extended - OU - Both Eyes (09/18/2020 2:13 PM CDT) Narrative OPHTHALMOLOGY IMAGING EXAM - 09/19/2020 10:13 PM CDT Right Eye Reliability was good. Automated visual field device used was Zeiss. Strategy was MONICA. Threshold was 24-2. Foveal threshold was normal. Eyelid was untaped. Progression has no prior data. Mean deviation was 2.44 decibels. Pattern standard deviation (PSD) was 1.41 decibels. Left Eye Reliability was good. Automated visual field device used was [employer]. Strategy was MONICA. Threshold was 24-2. Foveal threshold was normal. Progression has no prior data. Mean deviation was 1.29 decibels. Pattern standard deviation (PSD) was 1.34 decibels. Notes No definite visual field defect in either eye. 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 Malcom Pathak M.D. OPH SUAL FIELD OPHTHALMOLOGY IMAGING EXAM * (TTE) 2D ECHO DOPPLER COLOR (08/15/2020 11:41 AM BLOCK FEEDER) Pathologist [facility] Ejection Fraction 59 MC CV EIMS Sinus of Valsalva 36 MC CV EIMS Mid-Ascending Aorta 38 MC CV EIMS LV Mass Index 83 MC CV EIMS LV End-Diastolic Diameter 54 MC CV EIMS LV End-Systolic Diameter 38 MC CV EIMS LV End-Diastolic Volume 167 MC CV EIMS LV End-Systolic Volume 69 MC CV EIMS MV E Velocity 0.8 MC CV EIMS MV A Velocity 0.8 MC CV EIMS MV E/A 1.00 MC CV EIMS MV e' Velocity Medial 0.07 MC CV EIMS MV e' Velocity Lateral 0.08 MC CV EIMS MV E/e' Medial 11.4 MC CV EIMS MV E/e' Lateral 10.0 MC CV EIMS Left ventricular stroke volume index 42 MC CV EIMS Cardiac Output 5.60 MC CV EIMS Cardiac Index 2.41 MC CV EIMS LV Interventricular Septal Wall Thickness 9 MC CV EIMS LV Posterior Wall Thickness 10 MC CV EIMS LV Relative Wall Thickness 37 MC CV EIMS Tricuspid Annular S? 0.13 MC CV EIMS TR Vmax 2.27 MC CV EIMS RA Pressure 5 MC CV EIMS RV Systolic Pressure 26 MC CV EIMS Estimated diastolic pulmonary artery pressure 11 MC CV EIMS AV mean gradient 3 MC CV EIMS Aortic valve area 3.54 MC CV EIMS Aortic Valve Dimensionless Index 0.78 MC CV EIMS LA Volume Index 35 MC CV EIMS Anatomical Region Laterality Modality Echocardiography 08/15/2020 10:5 3 AM BLOCK FEEDER Impressions 08/15/2020 4:19 PM BLOCK FEEDER Transthoracic outreach echo interpretation. ??LEFT VENTRICLE: ??Normal left ventricular chamber size. ??Normal left ventricular wall thickness. ??Calculated 2-D biplane volumetric left ventricular ejection fraction 59 %. ??No regional wall motion abnormalities. ??Indeterminate left ventricular diastolic function. ??RIGHT VENTRICLE: ??Normal right ventricular chamber size. Normal right ventricular systolic function. ??Estimated right ventricular systolic pressure 26 mmHg (systolic blood pressure 124 mmHg). ??ATRIA: ??Borderline enlarged left atrial size. ??Left atrial volume index 35 ml/m^2. ??Normal right atrial size. ??CARDIAC VALVES: ??Trileaflet aortic valve. ??Mildly thickened aortic valve. ??Trivial aortic valve regurgitation. ??Mild-moderate mitral valve regurgitation. ??Normal pulmonary valve. ??Normal pulmonary valve systolic velocities. ??Trivial pulmonary valve regurgitation. ??Normal tricuspid valve. ??Mild tricuspid valve regurgitation. ??OTHER ECHO FINDINGS: ??Normal inferior vena cava size with normal inspiratory collapse (>50%). ??Normal ascending aorta diameter. ??No abdominal aortic aneurysm. Normal abdominal aorta Doppler flow pattern. ??No atrial level shunt by color flow imaging. ??No intracardiac mass or thrombus, but the left atrial appendage cannot be visualized adequately with transthoracic echo to exclude thrombus in this location. ??No pericardial effusion. For the complete report, see the Order-Level Documents. Narrative 08/15/2020 4:19 PM BLOCK FEEDER For the complete report, see the Order-Level Documents. Final Impressions 1. Normal left ventricular chamber size. ??Calculated ejection fraction 59%. No regional wall motion abnormalities. 2. Normal right ventricular chamber size and systolic function. 3. Estimated right ventricular systolic pressure 26 mmHg (systolic blood pressure 124 mmHg). 4. Mild mitral valve prolapse (posterior leaflet). Mild mitral regurgitation. 5. Normal inferior vena cava size with normal inspiratory collapse (>50%). 6. Normal ascending aorta diameter. Procedure Note Marks, Jayy J, M.D. - 08/15/2020 For the complete report, see the Order-Level Documents. Final Impressions 1. Normal left ventricular chamber size. Calculated ejection [id number]%. No regional wall motion abnormalities. 2. Normal right ventricular chamber size and systolic function. 3. Estimated right ventricular systolic pressure 26 mmHg (systolic bloodpressure 124 mmHg). 4. Mild mitral valve prolapse (posterior leaflet). Mild mitralregurgitation. 5. Normal inferior vena cava size with normal inspiratory collapse(>50%). 6. Normal ascending aorta diameter. Findings Transthoracic outreach echo interpretation. LEFT VENTRICLE: Normal leftventricular chamber size. Normal left ventricular wall thickness. Calculated 2-D biplanevolumetric left ventricular ejection fraction 59 %. No regional wall motionabnormalities. Indeterminate left ventricular diastolic function. RIGHT VENTRICLE: Normal rightventricular chamber size. Normal right ventricular systolic function. Estimated right ventricularsystolic pressure 26 mmHg (systolic blood pressure 124 mmHg). ATRIA: Borderline enlarged leftatrial size. Left atrial volume index 35 ml/m^2. Normal right atrial size. CARDIAC VALVES:Trileaflet aortic valve. Mildly thickened aortic valve. Trivial aortic valveregurgitation. Mild-moderate mitral valve regurgitation. Normal pulmonary valve. Normal pulmonaryvalve systolic velocities. Trivial pulmonary valve regurgitation. Normal tricuspidvalve. Mild tricuspid valve regurgitation. OTHER ECHO FINDINGS: Normal inferior vena cava sizewith normal inspiratory collapse (>50%). Normal ascending aorta diameter. Noabdominal aortic aneurysm. Normal abdominal aorta Doppler flow pattern. No atrial level shunt bycolor flow imaging. No intracardiac mass or thrombus, but the left atrial appendage cannot bevisualized adequately with transthoracic echo to exclude thrombus in this location. Nopericardial effusion. For the complete report, see the Order-Level Documents. Hector Sandhu M.D., Ph.D. 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 This now measures approximately 1.0 x 1.0 x 0.9 cm. Prior studies are available for comparison by report only at this time and the dimensions are identical to those reported on 05/17/2019. The examination is otherwise unremarkable. Narrative 07/25/2020 3:34 PM BLOCK FEEDER EXAM: MR BRAIN WITHOUT AND WITH IV CONTRAST HISTORY: Elevated prolactin 57.4 (reference range 3.5 to 19.4 ng/mL). On 05/21/2020 COMPARISON: No prior outside imaging studies are available for review at this time but a prior MR brain report from 05/17/2019 states: Rounded partially enhancing lesion along the anterior aspect of the pituitary sella measures 1.0 x 1.0 x 0.9 cm. A smaller amount of soft tissue is seen in a similar location on prior MRI brain exam dated 06/18/2006. In the setting of patient's reported history of prior prolactinoma resection and currently elevated prolactin levels, imaging findings are most consistent with an enlarging pituitary adenoma FINDINGS: There is an approximately 9 x 10 x 11 mm round mass in the anterior pituitary with heterogeneously increased T1 signal intensity on the precontrast images and heterogeneous enhancement. The pituitary stock is midline and the optic chiasm appears to be within normal limits. No vascular abnormalities are identified. No areas of restricted diffusion are noted. The ventricles and sulci are within normal limits in size. Procedure Note Kane Rene M.D. - 07/25/2020 EXAM: MR BRAIN WITHOUT AND WITH IV CONTRAST HISTORY: Elevated prolactin 57.4 (reference range 3.5 to 19.4 ng/mL). On 05/21/2020 COMPARISON: No prior outside imaging studies are available for review atthis time but a prior MR brain report from 05/17/2019 states: Roundedpartially enhancing lesion along the anterior aspect of the pituitary sella measures1.0 x 1.0 x 0.9 cm. A smaller amount of soft tissue is seen in a similarlocation on prior MRI brain exam dated 06/18/2006. In the setting of patient'sreported history of prior prolactinoma resection and currently elevated prolactinlevels, imaging findings are most consistent with an enlarging pituitary adenoma FINDINGS: There is an approximately 9 x 10 x 11 mm round mass in theanterior pituitary with heterogeneously increased T1 signal intensity on theprecontrast images and heterogeneous enhancement. The pituitary stock is midline andthe optic chiasm appears to be within normal limits. No vascular abnormalitiesare identified. No areas of restricted diffusion are noted. The ventricles andsulci are within normal limits in size. 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 This now measures approximately 1.0 x 1.0 x 0.9 cm.Prior studies are available for comparison by report only at this time and the dimensions are identical to those reported on 05/17/2019. The examinationis otherwise unremarkable. Hector Sandhu M.D., Ph.D. IMG MRI PROCEDU RES * Urinalysis with Microscopic if Indicated (07/22/2020 10:33 AM BLOCK FEEDER) Source Midstream 07/22/2020 10:36 AM BLOCK FEEDER CNFL Clarity Clear Clear 07/22/2020 10:36 AM BLOCK FEEDER CNFL Color Yellow 07/22/2020 10:36 AM BLOCK FEEDER CNFL Comment: ----REFERENCE VALUE---- Colorless Yellow Drea Blood Negative Negative 07/22/2020 10:36 AM BLOCK FEEDER CNFL Nitrite Negative Negative 07/22/2020 10:36 AM BLOCK FEEDER CNFL Leukocyte Esterase Negative Negative 07/22/2020 10:36 AM BLOCK FEEDER CNFL Protein Negative mg/dL 07/22/2020 10:36 AM BLOCK FEEDER CNFL Comment: ----REFERENCE VALUE---- Negative Trace Glucose Negative Negative mg/dL 07/22/2020 10:36 AM BLOCK FEEDER CNFL Ketones, QI(U) Negative Negative mg/dL 07/22/2020 10:36 AM BLOCK FEEDER CNFL Bilirubin Negative Negative 07/22/2020 10:36 AM BLOCK FEEDER CNFL pH 5.5 5.0 - 8.0 07/22/2020 10:36 AM BLOCK FEEDER CNFL Specific Aiken 1.025 1.001 - 1.035 07/22/2020 10:36 AM BLOCK FEEDER CNFL Urobilinogen 0.2 0.2 - 1.0 mg/dL 07/22/2020 10:36 AM BLOCK FEEDER CNFL Urine (Urine, Voided) 07/22/2020 10:33 AM BLOCK FEEDER 07/22/2020 10:33 AM BLOCK FEEDER Hector Sandhu M.D., Ph.D. LAB URINE ORDER BABAK Performing Organization Address City/[facility]/ZIP Co de Phone Number [facility] [address] [place] [address], [facility] CNFL [facility] in [address] [address] * Testosterone, Total and Bioavailable (07/22/2020 10:32 AM BLOCK FEEDER) Only the most recent of2 resultswithin the time period is included. Testosterone, Bioavailable, S 40 ng/dL 07/24/2020 6:55 PM BLOCK FEEDER [facility] Comment: ----REFERENCE VALUE---- Reference values have not been established for patients who are greater than 70 years of age. ----ADDITIONAL INFORMATION---- Testing performed by Differential Precipitation. This test was developed and its performance characteristics determined by [facility] in a manner consistent with CLIA requirements. This test has not been cleared or approved by the U.S. Food and Drug Administration. Testosterone, Total by Mass Spectrometry, Serum 361 240 - 950 ng/dL 07/25/2020 2:44 AM [facility] Comment: ----ADDITIONAL INFORMATION---- Testing performed by Liquid Chromatography-Tandem Mass Spectrometry (LC-MS/MS). This test was developed and its performance characteristics determined by [facility] in a manner consistent with CLIA requirements. This test has not been cleared or approved by the U.S. Food and Drug Administration. Blood (Blood, Venous) 07/22/2020 10:32 AM BLOCK FEEDER 07/23/2020 6:15 AM BLOCK FEEDER Hector Sandhu M.D., Ph.D. LAB BLOOD NON A DD-ON [facility] [address] [place] [address] [facility] Dept. of Laboratory Medicine and Pathology [address] [place] [address] * ACTH (Adrenocorticotropic Hormone) (07/22/2020 10:32 AM BLOCK FEEDER) Adrenocorticotropic Hormone, P 20 7.2-63 (a.m. collectio n) pg/mL 07/23/2020 9:49 AM BLOCK FEEDER [facility] Blood (Blood, Venous) 07/22/2020 10:32 AM BLOCK FEEDER 07/23/2020 7:29 AM BLOCK FEEDER Hector Sandhu M.D., Ph.D. LAB BLOOD NON A DD-ON [facility] [address] [place] [address] [facility] Dept. of Laboratory Medicine and Pathology [address] [place] [address] * Regional Block (06/12/2019 3:07 PM BLOCK FEEDER) Narrative Heriberto Méndez APRN, CRNA - 06/12/2019 3:07 PM BLOCK FEEDER Heriberto Méndez APRN, CRNA ? 06/12/2019 ??3:08 PM Regional Block Performed by: Heriberto Méndez APRN, CRNA Authorized by: Arelis Anthony M.D. Location: OR PROCEDURE DETAILS: Block type: primary anesthetic ?? Neuraxial: spinal ?? Positioning: sitting ?? Approach: midline Other levels attempted: L3-4 Block technique: landmark technique ?? Injection technique: single injection Needle type: sprotte Gauge: 24G Length: 5 CSF: yes ??Pain with needle advancement or injection of local anesthetic: no ?? UNIVERSAL PROTOCOL All relevant documentation and testing were reviewed and available. All required blood products, implants, devices and or special equipment were made available as applicable. Pre-procedure verification was conducted and the correct site was marked if required. A fire risk assessment was done as applicable. The procedural time-out was conducted prior to performing the procedure and confirmed in a procedural pause. PRE-PROCEDURE DETAILS: ?? Appropriate hand hygiene, gown, cap, mask, protective eyewear, sterile gloves, skin preparation, sterile drape, and strict aseptic technique were utilized as applicable for the procedure.: yes ?? Skin prep: chlorhexidine SEDATION / ANESTHESIA Anesthesia method: local infiltration Local infiltrate type: lidocaine POST-PROCEDURE DETAILS: Procedure completed successfully: successful procedure Other complications: none Arelis Anthony M.D. PROCEDURE/MINOR SURG ICAL ORDERABLES * RIGHT KNEE SCOPE-Surgery Image Exam (06/12/2019 2:35 PM BLOCK FEEDER) 06/12/2019 2:31 PM BLOCK FEEDER Narrative IIMS - 06/12/2019 3:48 PM BLOCK FEEDER This order has been created and auto-finalized to support the import of images acquired without order. The clinical documentation to support these images can be found on the encounter that produced images. Provider Not In System IMG NON RAD IMAGI NG PROCEDURES Performing Organization Address City/[facility] Co de Phone Number IIMS NA * MR BRAIN W/WO IV CONT-Outside MR Neuro (05/17/2019 10:45 AM BLOCK FEEDER) Only the most recent of2 resultswithin the time period is included. Narrative IIMI - 09/03/2020 10:32 AM BLOCK FEEDER This order has been created and auto-finalized to support the import of outside images. If available, original interpretation can be found on the Media Tab in Chart Review, in Document Viewer, or as an image in QREADS. If a re-interpretation or overread is required please follow defined workflow. ?? Provider Not In System IMG MRI PROCEDURE S Performing Organization Address City/[facility] Co de Phone Number IIMS NA * MR Knee Right without IV Contrast (04/27/2019 12:15 PM CDT) Anatomical Region Laterality Modality Lower Extremity, Knee, Muscu loskeletal RST LOS, Musculoskeletal ARZ LOS, Muskuloskeletal FLA LOS Right Magne tic Resonance 04/27/2019 3:15 PM CDT Impressions 04/27/2019 3:45 PM CDT 1. Horizontal oblique tear of the medial meniscal body and posterior horn. 2. Free edge tear of the lateral meniscal body. 3. Tricompartmental high-grade chondromalacia. 4. Moderate to large knee joint effusion. Narrative 04/27/2019 3:45 PM CDT EXAM: MR KNEE RIGHT WITHOUT IV CONTRAST COMPARISON: 02/17/2019 radiographs FINDINGS: Horizontal oblique tear of the medial meniscal body and posterior horn. Meniscal cyst adjacent to the posterior horn. Mild meniscal extrusion. Grade III chondromalacia of the central weightbearing medial femoral condyle grade 3 and grade IV chondromalacia involving the medial aspect of the medial tibial plateau, with subchondral edema. Free edge tear of the lateral meniscal body, example series 7 image 13. Grade II to III chondromalacia central weightbearing lateral femoral condyle and adjacent tibia. The extensor mechanism is intact. Multifocal full-thickness fissuring of the patella with subchondral edema. Partial-thickness trochlear chondromalacia. The patella is well seated. The ACL and PCL are intact. Mild increased signal the popliteus tendon at its insertion. Otherwise, lateral supporting structures are unremarkable. Moderate to large knee joint effusion. Procedure Note Yogi Verdin M.D. - 04/27/2019 EXAM: MR KNEE RIGHT WITHOUT IV CONTRAST COMPARISON: 02/17/2019 radiographs FINDINGS: Horizontal oblique tear of the medial meniscal body and posterior horn. Meniscal cyst adjacent to the posterior horn. Mild meniscal extrusion.Grade III chondromalacia of the central weightbearing medial femoral condyle grade 3and grade IV chondromalacia involving the medial aspect of the medial tibial plateau, with subchondral edema. Free edge tear of the lateral meniscal body, example series 7 image 13.Grade II to III chondromalacia central weightbearing lateral femoral condyle andadjacent tibia. The extensor mechanism is intact. Multifocal full-thickness fissuring ofthe patella with subchondral edema. Partial-thickness trochlearchondromalacia. The patella is well seated. The ACL and PCL are intact. Mild increased signal the popliteus tendon atits insertion. Otherwise, lateral supporting structures are unremarkable. Moderate to large knee joint effusion. IMPRESSION: 1. Horizontal oblique tear of the medial meniscal body and posteriorhorn. 2. Free edge tear of the lateral meniscal body. 3. Tricompartmental high-grade chondromalacia. 4. Moderate to large knee joint effusion. Hector Sandhu M.D., Ph.D. IMG MRI PROCEDU RES * Uric Acid (01/06/2019 10:52 AM CDT) Uric Acid, S 5.1 3.7 - 8.0 mg/dL 01/06/2019 11:41 AM CDT Blood (Blood, Venous) 01/06/2019 10:52 AM CDT 01/06/2019 10:55 AM CDT Monalisa Daugherty P.A.-C. LAB BLOOD A DD-ON Performing Organization Address City/State/[facility] Co de Phone Number [facility] [address] [id number] * US Lower Extremity Veins Right (12/16/2018 10:50 AM CDT) Anatomical Region Laterality Modality Lower Extremity, Ultrasound RST LOS, Ultrasound ARZ LOS, Ultrasound FLA LOS Right Ultrasound 12/16/2018 11:2 0 AM CDT Impressions 12/16/2018 11:20 AM CDT 1. ??Negative for deep venous thrombosis right lower extremity. Narrative 12/16/2018 11:20 AM CDT EXAM: US LOWER EXTREMITY VEINS RIGHT Exam performed with color and spectral Doppler analysis. COMPARISON: No comparison available. FINDINGS: RIGHT: ??The common femoral, upper deep femoral, femoral, and popliteal veins are widely patent, without thrombus. The posterior tibial, peroneal, soleal and gastrocnemius veins were segmentally visualized and are normal where seen. The great saphenous vein is patent and negative for thrombus. Procedure Note Seth Luong M.D. - 12/16/2018 EXAM: US LOWER EXTREMITY VEINS RIGHT Exam performed with color and spectral Doppler analysis. COMPARISON: No comparison available. FINDINGS: RIGHT: The common femoral, upper deep femoral, femoral, and poplitealveins are widely patent, without thrombus. The posterior tibial, peroneal, solealand gastrocnemius veins were segmentally visualized and are normal where seen.The great saphenous vein is patent and negative for thrombus. IMPRESSION: 1. Negative for deep venous thrombosis right lower extremity. Nicolasa Mclain D.P.M. IMG US PROCEDURES * DX Foot Right 3+ Views (11/16/2018 7:11 PM CDT) Anatomical Region Laterality Modality Lower Extremity, Foot, Muscu loskeletal RST LOS, Musculoskeletal ARZ LOS, Muskuloskeletal FLA LOS Right Digit al Radiography 11/17/2018 8:13 AM CDT Impressions 11/17/2018 8:15 AM CDT IMPRESSION: No acute fracture or traumatic malalignment. Polyarticular degenerative change, worst at the TMT and first MTP joint. Narrative 11/17/2018 8:15 AM CDT EXAM: DX FOOT RIGHT 3+ VIEWS Procedure Note Yogi Verdin M.D. - 11/17/2018 EXAM: DX FOOT RIGHT 3+ VIEWS IMPRESSION: No acute fracture or traumatic malalignment. Polyarticular degenerative change, worst at the TMT and first MTP joint. Eloina Carcamo P.A.-C. P.A. IMG DIAG NOSTIC IMAGING PROCEDURES * Hemoglobin (07/29/2018 10:17 AM BLOCK FEEDER) Hemoglobin 14.3 13.2 - 16.6 g/dL 07/29/2018 10:31 AM BLOCK FEEDER [facility] Blood (Blood, Venous) 07/29/2018 10:17 AM BLOCK FEEDER 07/29/2018 10:22 AM BLOCK FEEDER Trace Batista M.D. LAB BLOOD ADD-ON Performing Organization Address City/State/[facility] Co de Phone Number [facility] [address] * CRP (C-Reactive Protein) (07/29/2018 10:17 AM BLOCK FEEDER) C-Reactive Protein (CRP), S 0.9 <=8.0 mg/L 07/29/2018 11:03 AM BLOCK FEEDER [facility] Blood (Blood, Venous) 07/29/2018 10:17 AM BLOCK FEEDER 07/29/2018 10:22 AM BLOCK FEEDER Trace Batista M.D. LAB BLOOD ADD-ON [facility] [address] [address], [facility] * COLONOSCOPY (05/13/2017 10:14 AM BLOCK FEEDER) Narrative Procedure Note Tunde Yoder M.D. - 05/13/2017 10:14 AM CST [facility] [place] [facility] Patient Name: Delroy Nelson Procedure Date: 05/13/2017 10:14 AM Date of : 1950 Age: 66 Gender: Male Procedure: Colonoscopy Providers: Tunde Yoder MD Pre-op Diagnoses: Screening for colorectal malignant neoplasm Post-op Diagnoses: - The entire examined colon is normal. - The distal rectum and anal verge are normal on retroflexion view. - The examination was otherwise normal. - No specimens collected. Recommendation: - Patient has a contact number available for emergencies. The signsand symptoms of potential delayed complications were discussed with the patient. Return to normal activities tomorrow. Written discharge instructions were provided to the patient. - Resume previous diet. - Continue present medications. - Repeat colonoscopy in 5 years for adenoma surveillance. - Thank you, [ ] for your referral. Findings: The perianal and digital rectal examinations were normal. The colon (entire examined portion) appeared normal. The retroflexed view of the distal rectum and anal verge was normaland showed no anal or rectal abnormalities. Retroflexion in the right colon was performed. The exam was otherwise without abnormality. Medicines: Propofol per Anesthesia Complications: No immediate complications. Procedure Details: The patient was seen, evaluated, and history reviewed. Airway and heart and lung exams were performed and were satisfactory for plannedsedation care. The risks, benefits and alternatives for the procedure and sedation were discussed andinformed consent was obtained. A procedural pause was conducted in the presence of assisting personnelto verify the correct patient identity and procedureto be performed. Throughout the procedure, the patient's blood pressure, pulse, and oxygen saturations were monitored continuously. The Colonoscope was introduced under directvision through the anus and advanced to the cecum, identified by appendiceal orifice and ileocecal valve. The colonoscopy was performed without difficulty. The patient tolerated the procedure well. Scope advanced to cecum using waterexchange. The quality of the bowel preparation wasevaluated using the BBPS (Chester Bowel Preparation Scale)with scores of: Right Colon = 3, Transverse Colon = 3and Left Colon = 3 (entire mucosa seen well with no residual staining, small fragments of stool or opaque liquid). The total BBPS score equals 9.The ileocecal valve, appendiceal orifice, and rectum were photographed. Sedation: Anesthesia was administered by an anesthesia professional. Thefollowing parameters were monitored: oxygen saturation, heart rate, blood pressure, respiratory rate, EKG, adequacy of pulmonary ventilation,and response to care. Tunde Yoder MD 05/13/2017 10:56:06 AM This report has been signed electronically. Number of Addenda: 0 Note Initiated On: 05/13/2017 10:14 AM Tunde Yoder M.D. GI PROCEDURE ORDERAB LES * US Aorta AAA Screening (05/03/2017 8:42 AM CDT) Anatomical Region Laterality Modality Abdomen, Pelvis N/A Ultrasound 05/03/2017 8:42 AM CDT Impressions 05/03/2017 8:47 AM CDT 1. No abdominal aortic aneurysm. 2. 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 Electronically signed by: ?? Milind Verdin MD 03-May-2017 08:47 Narrative 05/03/2017 8:47 AM CDT 03-May-2017 08:42:00 ??Exam: US AAA Screening Indications: Screening AAA ORIGINAL REPORT - 03-May-2017 08:47:00 EXAM: US AAA Screening HISTORY: Screening AAA COMPARISONS: None FINDINGS: Proximal abdominal aorta: 2.6 x 2.6 cm. Mid abdominal aorta: 2.4 x 2.4 ??cm. Distal abdominal aorta: 2.2 x 2.2 ??cm. Proximal right common iliac measures 2.0 cm in maximal diameter. Proximal left common iliac artery measures 1.8 cm in maximal diameter. Procedure Note Yogi Verdin M.D. - 09/29/2017 03-May-2017 08:42:00 Exam: US AAA Screening Indications: Screening AAA ORIGINAL REPORT - 03-May-2017 08:47:00 EXAM: US AAA Screening HISTORY: Screening AAA COMPARISONS: None FINDINGS: Proximal abdominal aorta: 2.6 x 2.6 cm. Mid abdominal aorta: 2.4 x 2.4 cm. Distal abdominal aorta: 2.2 x 2.2 cm. Proximal right common iliac measures 2.0 cm in maximal diameter. Proximal left common iliac artery measures 1.8 cm in maximal diameter. IMPRESSION: 1. No abdominal aortic aneurysm. 2. 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 Electronically signed by: Milind Verdin MD 03-May-2017 08:47 Trace Batista M.D. IMG US PROCEDURES * HCV Ab w/Reflex to HCV PCR, S (05/03/2017 8:13 AM CDT) Pathologist [facility] HXHCV Ab [facility] Negative Negative POWERCHART Comment: Ivdxoc-uv-xxcvfk ratio is <1.00. Test Performed by: [facility] [address] [place] [address] Blood 05/03/2017 8:13 AM CDT Trace Batista M.D. LAB MICROBIOLOGY - BLOOD ORDERABLES POWERCHART NA * Urinalysis, Routine (04/28/2016 2:50 PM CDT) Clarity Clear Clear POWERCHART HXUr Color Yellow Colorless POWERCHART Specific Aiken, POCT, U 1.020 POWERCHART Comment: Reference Range Specific Aiken: 1.000-1.035 pH, POCT, Urine 5.5 <5.0 POWERCHART Comment: Reference Range pH: 5.0-8.0 Protein, Ur, Dip Negative Negative MGDL POWERCHA RT Glucose Negative Negative MGDL POWERCHART Ketones, QL(U) Negative Negative MGDL POWERCHART HXBILIRUBIN Negative Negative POWERCHART HXBLOOD Negative Negative POWERCHART Leukocyte Esterase Negative Negative POWERCHART HXNITRITE Negative Negative POWERCHART Urobilinogen 0.2 0.2 MGDL POWERCHART Comment: Reference Range Urobilinogen: 0.2-1.0 mg/dL Urine, First Voided 04/28/2016 2:50 PM CDT Hector Sandhu M.D., Ph.D. LAB URINE ORDER BABAK Performing Organization Address [facility] de Phone Number POWERCHART * CBC without Differential (04/28/2016 2:48 PM CDT) Leukocytes 7.9 3.5 - 10.5 X109L POWERCHART Erythrocytes 4.67 4.32 - 5.72 [id number] POWERCHART Hemoglobin 14.5 13.5 - 17.5 GDL POWERCHART Hematocrit 41.8 38.8 - 50.0 POWERCHART MCV 89.5 81.2 - 95.1 FL POWERCHART HX RDW 12.2 11.8 - 15.6 POWERCHART Platelet Count 181 150 - 450 X109L POWERCHART Blood 04/28/2016 2:48 PM CDT Hector Sandhu M.D., Ph.D. LAB BLOOD ADD-O N Performing Organization Address [facility] de Phone Number POWERCHART * DX Hip And Pelvis Left 2+ Views (04/28/2016 2:33 PM CDT) Anatomical Region Laterality Modality Lower Extremity, Pelvis, Hip Left Rad iographic Imaging 04/28/2016 2:33 PM CDT Impressions 04/28/2016 2:38 PM CDT ??No comparison. ??Moderate to advanced degenerative change bilateral hips. ??No acute fracture or soft tissue abnormality. ??Right greater trochanter is not completely included on this exam. Electronically signed by: ?? Tracy Hill MD 28-Apr-2016 14:38 Narrative 04/28/2016 2:38 PM CDT 28-Apr-2016 14:33:00 ??Exam: Hip 2vw AP/Obl LT Indications: left hip pain ORIGINAL REPORT - 28-Apr-2016 14:38:00 EXAM: ??Hip 2vw AP/Obl LT Procedure Note Arthur Hill M.D. - 09/30/2017 28-Apr-2016 14:33:00 Exam: Hip 2vw AP/Obl LT Indications: left hip pain ORIGINAL REPORT - 28-Apr-2016 14:38:00 EXAM: Hip 2vw AP/Obl LT IMPRESSION: No comparison. Moderate to advanced degenerative changebilateral hips. No acute fracture or soft tissue abnormality. Rightgreater trochanter is not completely included on this exam. Electronically signed by: Tracy Hill MD 28-Apr-2016 14:38 Hector Sandhu M.D., Ph.D. IMG DIAGNOSTIC IMAGING PROCEDURES * (ABNORMAL) Automated Differential (09/28/2014 1:50 PM CDT) Absolute Neutrophils 3.11 1.70 - 7.00 109L POWERCHART Lymphocytes 1.88 0.90 - 2.90 X109L POWERCHART Monocytes 1.00(H) 0.30 - 0.90 X109L POWERCHART Eosinophils 0.00(L) 0.05 - 0.50 X109L POWERCHART Absolute Basophil 0.01 0.00 - 0.30 X109L POWERCHART Blood 09/28/2014 1:50 PM CDT 09/28/2014 1:50 PM CDT Douglas Grace M.D. LAB BLOOD ADD-ON POWERCHART * (ABNORMAL) Urinalysis, Midstream, with culture if indicated (09/28/2014 1:45 PM CDT) HXUR WBC. Occ-3 None Seen HPF POWERCHART HXUR RBC. None Seen None Seen HPF POWERCHART Transitional Cells Occ-3(A) None Seen HPF POWERCHART Squamous Epithelial Occ-3(A) None Seen HPF POWERCHART HXUR Bacteria, Present(A) None Seen POWERCHART Crystals Present(A) None Seen POWERCHART Comment:few amorphous Mucus Present(A) None Seen POWERCHART HXUr Color Yellow Colorless POWERCHART Clarity Clear Clear POWERCHART Glucose Negative Negative MGDL POWERCHART HXBILIRUBIN Negative Negative POWERCHART Ketones, QL(U) Negative Negative MGDL POWERCHART Specific Aiken, POCT, U 1.025 POWERCHART pH, POCT, Urine 5.5 <5.0 POWERCHART Protein, Ur, Dip 30(A) Negative MGDL POWERCHART Urobilinogen 0.2 0.2 MGDL POWERCHART HXNITRITE Negative Negative POWERCHART HXBLOOD Negative Negative POWERCHART Leukocyte Esterase Negative Negative POWERCHART Urine, First Voided 09/28/2014 1:45 PM CDT Douglas Grace M.D. LAB URINE ORDERABLE S POWERCHART Visit Diagnoses Diagnosis Start Date Immunization Only 05/27/2018 Annual Medicare Examination Return 07/27/2018 Discomfort Chest 07/29/2018 Discomfort Chest 07/29/2018 High Risk Medication 07/29/2018 Pain Foot Right 11/16/2018 Pain Foot Right 11/16/2018 Pain Foot Right 12/08/2018 Arthritis Foot 12/08/2018 Pes Planus Left 12/08/2018 Pes Planus Right 12/08/2018 Pronation Foot Left 12/08/2018 Pronation Foot Right 12/08/2018 Neuropathy 12/08/2018 Edema Lower Extremity 12/08/2018 Edema Lower Extremity 12/16/2018 Edema Peripheral 01/06/2019 Swelling Knee Right 02/17/2019 Swelling Knee Right 02/17/2019 Swelling Knee Right 02/22/2019 Pain Knee Right 02/22/2019 Swelling Knee Right 02/27/2019 Pain Knee Right 02/27/2019 Edema 03/10/2019 Lymphedema 03/13/2019 Edema 03/13/2019 Edema 03/15/2019 Edema 03/20/2019 Pain Knee Right 04/26/2019 Swelling Knee Right 04/26/2019 Mass Pituitary (HCC) 04/26/2019 Pain Knee Right 04/27/2019 Pain Knee Right 04/27/2019 Pain Knee Right 05/12/2019 Primary Osteoarthritis Knee Right 05/12/2019 Pain Knee Right 05/16/2019 Hordeolum Right 06/02/2019 Cellulitis Preseptal 06/02/2019 Preanesthetic Medical Exam 06/06/2019 Pain Knee Right 06/06/2019 Pain Knee Right 06/12/2019 Pain Knee Right 06/12/2019 Pain Knee Right 06/30/2019 Annual Medicare Examination Return 07/28/2019 Arthroscopy Knee Status Post 08/01/2019 Pain Knee Right 08/01/2019 Hordeolum Left 01/04/2020 Need Vaccine Immunization Influenza 05/16/2020 Urgency Urinary 07/13/2020 Benign Prostatic Hyperplasia Without Obstruction 07/13/2020 Prolactinoma (HCC) 07/13/2020 Mitral Valve Prolapse 07/13/2020 Dilatation Ascending Aorta (HCC) 07/13/2020 Prolactinoma (HCC) 07/16/2020 Prolactinoma (HCC) 07/18/2020 Urgency Urinary 07/22/2020 Benign Prostatic Hyperplasia Without Obstruction 07/22/2020 Prolactinoma (HCC) 07/22/2020 Urgency Urinary 07/22/2020 Benign Prostatic Hyperplasia Without Obstruction 07/22/2020 Prolactinoma (HCC) 07/25/2020 Mitral Valve Prolapse 08/15/2020 Dilatation Ascending Aorta (HCC) 08/15/2020 Prolactinoma (HCC) 08/30/2020 Prolactinoma (HCC) 09/05/2020 Prolactinoma (HCC) 09/18/2020 Prolactinoma (HCC) 10/07/2020 Prolactinoma (HCC) 10/10/2020 Prolactinoma (HCC) 10/25/2020 Dyspnea On Exertion 10/30/2020 Dyspnea On Exertion 10/30/2020 Fever Tick Borne 10/30/2020 Raynaud's Disease 10/30/2020 Encounter For Preprocedural Laboratory Examination (COVID-19) 12/04/2020 Dyspnea On Exertion 12/09/2020 Shortness Of Breath 12/10/2020 Dyspnea On Exertion 12/17/2020 Shortness Of Breath 12/17/2020 Shortness Of Breath 12/17/2020 Pain Knee Right 01/21/2021 Prolactinoma (HCC) 01/30/2021 Prolactinoma (HCC) 01/30/2021 Preprocedural Lab Exam 02/14/2021 Dyspnea On Exertion 02/19/2021 Prolactinoma (HCC) 02/21/2021 Prolactinoma (HCC) 03/03/2021 Primary Osteoarthritis Knee Right 03/07/2021 Prolactinoma (HCC) 03/12/2021 Adenoma Pituitary (HCC) 03/12/2021 Prolactinoma (HCC) 03/12/2021 Prolactinoma (HCC) 03/17/2021 Primary Osteoarthritis Knee Right 03/18/2021 Prolactinoma (HCC) 03/25/2021 Primary Osteoarthritis Knee Right 03/26/2021 Primary Osteoarthritis Knee Right 04/01/2021 Primary Osteoarthritis Knee Right 04/08/2021 Contact With And (Suspected) Exposure To COVID-19 04/11/2021 Adenoma Pituitary (HCC) 04/28/2021 Prolactinoma (HCC) 04/28/2021 Prolactinoma (HCC) 04/28/2021 Prolactinoma (HCC) 04/29/2021 Prolactinoma (HCC) 04/29/2021 Otitis Media Acute Left 05/07/2021 Tinnitus Left 05/07/2021 Cough Unspecified Type 05/07/2021 Need Vaccine Immunization Influenza 05/07/2021 Bursitis Olecranon Left 05/07/2021 Prolactinoma (HCC) 05/09/2021 Dysfunction Eustachian Tube Bilateral 05/28/2021 Immunization Only 06/03/2021 Contact With And (Suspected) Exposure To COVID-19 06/06/2021 Contact With And (Suspected) Exposure To COVID-19 06/24/2021 Frequency Urinary 09/02/2021 Dysfunction Erectile 09/02/2021 Screening Examination Prostate Cancer 09/02/2021 Myalgia 09/02/2021 Prolactinoma (HCC) 09/02/2021 Primary Osteoarthritis Foot Left 09/02/2021 Primary Osteoarthritis Foot Left 09/05/2021 Pain Foot Left 09/10/2021 Olecranon Bursitis Left Elbow 09/29/2021 Olecranon Bursitis Left Elbow 09/29/2021 Pain Foot Left 10/06/2021 Primary Osteoarthritis Foot Left 10/06/2021 Olecranon Bursitis Left Elbow 10/15/2021 Encounter For Preprocedural Laboratory Examination (COVID-19) 10/15/2021 Preoperative Exam 10/15/2021 Prolactinoma (HCC) 11/17/2021 Prolactinoma (HCC) 11/17/2021 Adenoma Pituitary (HCC) 11/17/2021 Prolactinoma (HCC) 11/17/2021 Prolactinoma (HCC) 11/25/2021 Prolactinoma (HCC) 11/25/2021 COVID-19 Infection 12/22/2021 COVID-19 Infection 12/22/2021 COVID-19 Infection 12/22/2021 COVID-19 Infection 12/22/2021 Pain Knee Right 01/02/2022 Prolactinoma (HCC) 02/26/2022 Prolactinoma (HCC) 03/04/2022 Counseling Travel And Immunization 04/06/2022 Insulin Resistance, Unspecified 04/15/2022 Prolactinoma (HCC) 04/15/2022 Benign Prostatic Hyperplasia Without Obstruction 04/15/2022 Keratosis Seborrheic 04/15/2022 Screening Cancer Colon 04/15/2022 Prolactinoma (HCC) 04/16/2022 Pain Knee Right 04/16/2022 Prolactinoma (HCC) 05/18/2022 Screening Cancer Colon 05/22/2022 Screening Cancer Colon 05/22/2022 Immunization Only 06/03/2022 Prolactinoma (HCC) 07/22/2022 Prolactinoma (HCC) 07/24/2022 Prolactinoma (HCC) 09/28/2022 Edema 09/28/2022 Hyperlipidemia 09/28/2022 Screening Examination Prostate Cancer 09/28/2022 Nodule Pulmonary 10/06/2022 Prolactinoma (HCC) 10/06/2022 Pain Ankle Left 10/06/2022 Nodule Pulmonary 10/06/2022 Pain Ankle Left 10/13/2022 Prolactinoma (HCC) 10/20/2022 Cataract Senile Nuclear Sclerosis Bilateral 10/20/2022 Myopia Bilateral 10/20/2022 Astigmatism Regular Bilateral 10/20/2022 Presbyopia 10/20/2022 Adenoma Pituitary (HCC) 11/11/2022 Prolactinoma (HCC) 11/11/2022 Prolactinoma (HCC) 11/11/2022 Pain Knee Right 11/19/2022 Pain Knee Right 11/19/2022 Prolactinoma (HCC) 12/14/2022 Puncture Wound Without Foreign Body Of Left Index Finger Without Damage To Nail Sequela 02/12/2023 Prolactinoma (HCC) 02/16/2023 Need Vaccine Immunization Hepatitis A 02/16/2023 Prolactinoma (HCC) 02/16/2023 Adenoma Pituitary (HCC) 03/09/2023 Pain Hip Left 06/04/2023 Pain Hip Left 06/04/2023 History Of Falling 06/04/2023 Preoperative Exam 07/19/2023 Hyperlipidemia 07/19/2023 Screening Examination Prostate Cancer 07/19/2023 Insulin Resistance, Unspecified 07/19/2023 Annual Medicare Examination Return 07/23/2023 Preoperative Exam 07/23/2023 Primary Osteoarthritis Hip Left 07/23/2023 History Of Falling 07/23/2023 Overweight Body Mass Index 25-29.9 Adult 07/23/2023 Prolactinoma (HCC) 07/23/2023 Hypercholesterolemia 07/23/2023 Lesion Skin Face 07/23/2023 Lesion Skin Face 07/30/2023 Keratosis Actinic [L57.0] 07/30/2023 Cancer Skin Basal Cell Personal History 07/30/2023 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) 08/06/2023 Prolactinoma (HCC) 08/19/2023 Cancer Skin Basal Cell Personal History 09/15/2023 Melanoma Personal History 09/15/2023 Cancer Skin Squamous Cell Personal History 09/15/2023 Keratosis Actinic 09/15/2023 Keratosis Seborrheic Inflamed 09/15/2023 Dermatoheliosis 09/15/2023 Nevi Multiple 09/15/2023 Xerosis 09/15/2023 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 [address] [place] [phone] PCP - General Family Medicine 04/17/19
--- OUTSIDE RECORDS SUMMARY | 2023-11-03 08:01 | XMS_ITS | Encounter Summary ---
Author Name Unknown Organization [facility] Address [address] [place] [address] Care Team Providers Care Washer Engineer Name Role Phone Hector Sandhu M.D., Ph.D. Primary Care Provider Encounter Details Date Type Department Care Team (Latest Contact Info) Description 08/19/2023 10:00 AM FORGE OPERATOR HELPER - 08/19/2023 11:59 PM [facility] [place] Hospital Encounter Department of Laboratory Medicine in [address] [phone] Hector Sandhu M.D., Ph.D. [address] [place] [phone] Prolactinoma (HCC) Discharge Disposition: Home or Self Care Social History Tobacco Use Types Packs/Day Years Used Date Smoking Tobacco: Never Passive Smoke Exposure: Past Smokeless Tobacco: Never Comments:Occasionally smoked a cigarette or a cigar at social functions. Alcohol Use Standard Drinks/Week Comments Yes 10 (1 standard drink = 0.6 oz pu re alcohol) 1-2 daily Humiliation, Afraid, Rape, and Kick questionnair e [...] 10/02/2022 How often do you attend chur or sikhism services? Never 10/02/2022 Do you belong to any clubs o r organizations such as bahai groups, unions, fraternal or athletic groups, or [...] when you are drinking? 1 or 2 Q3: How often do you have si x or more drinks on one occasion? Never 10/02/2022 Overall Financial Resource Strain (CARDIA) Answe r Date Recorded How hard is it for you to pa y for the very basics like food, housing, medical care, and heating? Not hard at all 10/02/2022 PHQ-2 Answer Date Recorded PHQ-2 Score 0 07/19/2023 [facility] of Occupat ional Health - Occupational Stress [...] exercise (like a brisk walk)? 7 days 10/02/2022 On average, how many minutes do you engage in exercise at this level? 50 min 10/02/2022 Hunger Vital Sign Answer Date Recorded Within the past 12 months, y ou worried that your food would run out before you got the money to buy more. Never true 10/03/19 23 Within the past 12 months, t he food you bought just didn't last and you didn't have money to get more. Never true 10/02/2022 PRAPARE - Transportation Answer Date Re corded In the past 12 months, has l ack of transportation kept you from medical appointments or from getting medications? No 09/04 In the past 12 months, has l ack of transportation kept you from meetings, work, or from getting things needed for daily living? No 10/02/2022 Housing Stability Vital Sign Answer James e Recorded In the last 12 months, was t here a time when you were not able to pay the mortgage or rent on time? No 10/02/2022 In the last 12 months, how many places have you lived? 1 10/02/2022 In the last 12 months, was t here a time when you did not have a steady place to sleep or slept in a senior care (including now)? No 10/02/2022 Nutrition Answer Date Recorded Nutrition: EVOO Fat Source No 10/02 On average, how many serving s of fruits and vegetables do you eat per day (serving size is equal to 1 cup or approximately the size of a tennis ball)? 2-3 10/02/2022 Dental Answer Date Recorded Dental: Regular Dentist Yes 08/25/19 Employment Answer Date Recorded Employment status Retired 10/02/2022 Education Answer Date Recorded What is the highest level of school you have completed or the highest degree you have received? Professional school degree (e.g., MD, DDS, DVM, TIFFANIE) 12/07/2018 Sex and Gender Information Value Date Recorded Sex Assigned at Male 12/29/2017 11:12 PM CDT Gender Identity Male 12/29/2017 11:12 PM CDT Sexual Orientation Straight 12/29/2017 11 :12 PM CDT documented as of this encounter Medications at Time of Discharge Medication Sig Dispensed Refills Start Date End Date acetaminophen (TYLENOL) 500 mg tablet Take 1,000 mg by mouth every 6 (six) hours as needed for pain. ibuprofen (ADVIL,MOTRIN) 200 mg tablet Take 400 mg by mouth 2 (two) times a day. rosuvastatin (CRESTOR) 10 mg tablet TAKE 1 TABLET(10 MG) BY MOUTH DAILY 90 tablet 3 04/19/2023 tadalafiL (CIALIS) 5 mg tablet TAKE 1 TABLET BY MOUTH DAILY. 90 tablet 11 12/01/2022 EPINEPHrine 0.3 mg/0.3 mL injection syringe Inject 0.3 mg intramuscularly as needed. 03/25/2011 documented as of this encounter Plan of Treatment Upcoming Encounters Date Type Department Care Team (Late st Contact Info) Description 11/10/2023 9:15 AM CDT Comprehensive Visit Department of Rehabilitation Services in [address] [phone] Arpan Alejo M.D. [address] [place] [phone] Nicolasa Eller, P.TMaxime [address] [place] [phone] documented as of this encounter Procedures Procedure Name Priority Date/Time Associated Diagnosis Comments PROLACTIN, S Routine 08/19/2023 10:16 AM FORGE OPERATOR HELPER Prolactinoma (HCC) documented in this encounter Results * Prolactin (08/19/2023 10:16 AM FORGE OPERATOR HELPER) Prolactin Total 5.2 4.0 - 15.2 ng/mL 08/19/2023 4:01 PM FORGE OPERATOR HELPER ECLR Comment: Biotin has been identified by the aerodynamic consultant as a potential interfering substance. Higher concentrations [...] disease. Blood (Blood, Venous) 08/19/2023 10:16 AM FORGE OPERATOR HELPER 08/19/2023 3:01 PM FORGE OPERATOR HELPER Hector Sandhu M.D., Ph.D. LAB BLOOD ADD-O N [facility] [address] [place] [phone], [facility] ECLR [facility] [place] [address] documented in this encounter Visit Diagnoses Diagnosis Prolactinoma (HCC) documented in this encounter Care Teams Washer Engineer Relationship Specialty Start Date End Date Hector Sandhu M.D., Ph.D. [address] [place] [phone] PCP - General Family Medicine 04/17/19 documented as of this encounter
--- OUTSIDE RECORDS SUMMARY | 2023-11-03 08:01 | XMS_ITS ---
Author Name Unknown Organization [facility] Address [address] [place] [address] Care Team Providers Care Pig Sticker Name Role Phone Unavailable Unavailable Unavailable Surgery Details Not on file Complications Check Surgery Details section. Procedure Estimated Blood Loss Check Surgery Details section. Procedure Findings Check Surgery Details section. Procedure Specimens Taken Check Surgery Details section.
--- OUTSIDE RECORDS SUMMARY | 2023-11-03 08:01 | XMS_ITS | Encounter Summary ---
Author Name Unknown Organization [facility] Address [address] [place] [address] Care Team Providers Care Tool Liaison Name Role Phone Hector Sandhu M.D., Ph.D. 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 [address] [place] [address] [facility] Referral ID Status Reason Start Date Expiration Date Visits Re quested Visits Authorized [id number] Closed 08/06/2023 08/05/2024 1 1 Encounter Details Date Type Department Care Team (Latest Contact Info) Description 10/01/2023 8:00 AM CDT Procedure visit Department of Dermatology in [place], [place] [address] [place] [phone] Vincent Culp M.D. 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 Alcohol Use Standard Drinks/Week Comments Yes 10 (1 standard drink = 0.6 oz pu re alcohol) 1-2 daily [facility] Utilities Answer Date Recorded In the past 12 months has th e [employer], gas, oil, or water [employer] threatened to shut off services in your [...] often do you attend chur ch or faith services? Never 10/02/2022 Do you belong to any clubs o r organizations such as gnosticist groups, unions, fraternal or athletic groups, or [...] Answer Date Recorded PHQ-2 Score 0 07/19/2023 [facility] - Occupational Stress [...] your living situation today? I have a [facility] place to live 10/15/2023 Education Answer Date Recorded What is the highest level of school you have completed or the highest degree you have received? Professional school degree (e.g., , RIDGES, DVM, TIFFANIE) 12/07/2018 Sex and Gender Information Value Date Recorded Sex Assigned at Male 12/29/2017 11:12 PM CDT Gender Identity Male 12/29/2017 11:12 PM CDT Sexual Orientation Straight 12/29/2017 11 :12 PM CDT documented as of this encounter Last Filed Vital Signs Vital Sign Reading Time Taken Comments Blood Pressure 128/75 10/01/2023 7:48 AM CDT Pulse 64 10/01/2023 7:48 AM CDT Temperature - - Respiratory Rate - - Oxygen Saturation - - Inhaled Oxygen Concentration - - Weight - - Height - - Body Mass Index - - documented in this encounter Procedure Notes * Iggy Perdomo M.D. - 10/01/2023 8:00 AM CDT PREOP INDICATION: REMOVAL. Date of Surgery: 10/01/2023 Surgeon: Dr. Vincent Culp M.D. Land Department Head: Dr. Iggy Perdomo M.D. Location: 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 INFORMED CONSENT Discussed the risks, benefits, alternatives, and the necessity of other members of the healthcare team participating in the procedure. All questions answered and consent given. PATIENT EDUCATION Ready to learn, no apparent learning barriers were identified; learning preferences include listening. Explained diagnosis and treatment plan; patient expressed understanding of the content. Preoperative medications: None The anesthesia used was 1% lidocaine with 1:200,000 epinephrine, lidocaine 9mg/ml (0.9%) buffered with sodium bicarbonate 0.1 mEq/mL (0.01%), followed by 1% lidocaine and 0.25% bupivacaine with 1:200,000 epinephrine. The skin was prepped in a sterile fashion with Hibiclens. Histologic tumor-free margins were obtained in 1 stages (1 blocks) by standard Mohs micrographic techniques with the Mohs surgeon performing both the surgery and pathology. No residual tumor was seenon stage one. The final defect depth was down to level of: subcutaneous fat. Postoperative size: 1.7 x 1.2 cm. Anesthesia with 1% lidocaine with 1:200,000 epinephrine and another sterile prep were performed. Anintermediate layered closure was planned, and Burow's triangles were excised from opposite poles ofthe defect in the direction of the skin tension lines. The wound was undermined as needed, and hemostasis was obtained with electrocoagulation. The wound edges were closed with 4-0 Monocryl subcutaneous sutures and Dermabond skin glue Postoperative length: 4.3 cm. Estimated blood loss: Minimal. Complications: None. Wound care: Routine. Postoperative medications: Sxkr-fql-ugtqtsc analgesics Iggy Perdomo M.D. Mohs Surgery Fellow * Iggy Perdomo M.D. - 10/01/2023 8:00 AM CDT PREOP INDICATION: REMOVAL. Date of Surgery: 10/01/2023 Surgeon: Vincent Culp M.D. Land Department Head: Iggy Perdomo M.D. 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 Procedural pause conducted to verify: correct patient identity, procedure to be performed and as applicable, correct side and site, correct patient position, and availability of implants, special equipment or special requirements. INFORMED CONSENT Discussed the risks, benefits, alternatives, and the necessity of other members of the healthcare team participating in the procedure. All questions answered and consent given. PATIENT EDUCATION Ready to learn, no apparent learning barriers were identified; learning preferences include listening. Explained diagnosis and treatment plan; patient expressed understanding of the content. Preoperative medications: None The anesthesia used was 1% lidocaine with 1:200,000 epinephrine, lidocaine 9mg/ml (0.9%) buffered with sodium bicarbonate 0.1 mEq/mL (0.01%), followed by 1% lidocaine and 0.25% bupivacaine with 1:200,000 epinephrine. The skin was prepped in a sterile fashion with Hibiclens. Normal skin control was obtained from the contralateral malar cheek The initial margin was a 5 -mm Wood's lamp-defined clinically tumor-free margin. Histologic tumor-free margins were obtained in 1 stages (5 blocks) by standard Mohs micrographic techniques with the Mohs surgeon performing both the surgery and pathology. MART1 (Melan-A) and MITF immunohistochemical stains was used to stain all tissue sections in order to determine histological tumor-free margins. The final defect depth was down to level of: subcutaneous fat. Postoperative size: 3 x 2.7 cm. Anesthesia with 1% lidocaine with 1:200,000 epinephrine and another sterile prep were performed. Anintermediate layered closure was planned, and Burow's triangles were excised from opposite poles ofthe defect in the direction of the skin tension lines. The wound was undermined as needed, and hemostasis was obtained with electrocoagulation. The wound edges were closed with 5-0 vicryl and 5-0 monocryl subcutaneous sutures and Dermabond skin adhesive rather than skin sutures. Postoperative length: 8.5 cm. Estimated blood loss: Minimal. Complications: None. Wound care: Routine. Postoperative medications: None (#) This test has been modified from the outboard motor mechanic's instructions. Its performance characteristics were determined by [facility] in a manner consistent with CLIA requirements. This test has not been cleared or approved by the U.S. Food and Drug Administration. Commission on Cancer: Operation performed with curative intent: Yes Original Breslow thickness of the lesion: Melanoma in situ (MIS) Clinical margin width (measured from the edge of the lesion or the prior excision scar): 0.5 cm Depth of excision: Only skin and superficial subcutaneous fat (melanoma in situ) documented in this encounter Consult Notes * Iggy Perdomo M.D. - 10/01/2023 8:00 AM CDT DERMATOLOGIC SURGERY CONSULTATION NOTE PATIENT NAME: Delroy Nelson DATE OF : 1950, 73 y.o. DATE: 10/01/2023 STAFF PHYSICIAN: Dr. Vincent Culp M.D. 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 male presents today in referral from Werner Nation M.B.B.S., M.D. for the below biopsy proven tumor(s), see pathology report. Pathology result: FINAL DIAGNOSIS A. Left Malar Cheek, Skin shave biopsy: At least squamous cell carcinoma in situ, involving biopsy border B. Right Malar Cheek, Skin shave biopsy: Malignant melanoma in situ, lentigo maligna type, Vincent level I (T-classification: Tis) COMMENT The tumor cells are immunoreactive for SOX10. Tumor involves the peripheral margin. Complete surgical excision with appropriate margins is recommended. REVIEW OF SYSTEMS History of skin cancer ROS QUESTION YES NO Prior skin cancer [] [x] Prior melanoma [] [x] Organ Systems Heart disease/Heart Valve/Murmur [] [x] Pacemaker [] [x] Defibrillator [] [x] Lung disease or conditions [] [x] Liver Disease [] [x] Stroke/Seizure/Dementia [] [x] Cancer: [] [x] ID [] [x] Diabetes [] [x] Insulin dependent? [] [x] Organ Transplant: [] [x] Bleeding or healing problems [] [x] Blood Thinners Aspirin [] [x] Coumadin/Warfarin [] [x] Plavix [] [x] Others [] [x] Hypertension [] [x] Implants: [] [x] Habits Tobacco [] [x] Alcohol [x] [] The dermatologic surgery preoperative sheet was reviewed today in detail. CURRENT MEDICATIONS The medications for today's visit were reviewed OBJECTIVE VITALS SIGNS BP 128/75 Pulse 64 PHYSICAL EXAMINATION General: well appearing male in no acute distress Skin: Focused skin examination was performed today of the surgical site(s) revealing erythematous scar, consistent with prior biopsy site(s), on the right and left malar cheek. Lymph Nodes: No Cervical, preauricular, postauricular, submandibular lymphadenopathy DIAGNOSTICS REVIEW OF MEDICAL CHART: A review of the patient's medical chart and any referral form(s) was performed. I personally reviewed the patient's histopathology from the biopsy slides, and my impression is listed below in the assessment and plan. 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 We reviewed the diagnosis(es)/indication(s) and treatment options. Based on appropriate use criteria, decision was made to treatwith Mohs micrographic surgery given anatomic location where tissue conservation is critical and ill- defined clinical margins. We reviewed associated risks, benefits, and alternatives. Risks includedbleeding, infection, scar, recurrence, large wound, dehiscence, and sensation loss. Natural historyof scar and expectations reviewed. After discussion, the patient consented to proceed. All questions were answered. After curettage of the clinically apparent tumor, the tumor deep and peripheral margins were clear after 1 stages of Mohs micrographic excision. The final wound defect was repaired by intermediate repair. Please refer to the operative note and associated Mohs map for complete details. 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 We reviewed the diagnosis(es)/indication(s) and treatment options. Based on appropriate use criteria, decision was made to treatwith Mohs micrographic surgery given anatomic location where tissue conservation is critical, aggres sive histopathology , and ill-defined clinical margins. We reviewed associated risks, benefits, andalternatives. Risks included bleeding, infection, scar, recurrence, large wound, dehiscence, and sensation loss. Natural history of scar and expectations reviewed. After discussion, the patient consented to proceed. All questions were answered. After curettage of the clinically apparent tumor, the tumor deep and peripheral margins were clear after 1 stages of Mohs micrographic excision. The final wound defect was repaired by intermediate repair. Please refer to the operative note and associated Mohs map for complete details. Follow up 6-12 months for full skin exam, sooner if needed for wound related issues. Iggy Perdomo M.D. Associated attestation - Vincent Culp M.D. - 10/29/2023 2:33 PM CDT I was present during all critical and alvarenga portions of the procedure(s) and immediately available [facility] services the entire duration. See resident/fellow note for details. documented in this encounter Plan of Treatment Upcoming Encounters Date Type Department Care Team (Late st Contact Info) Description 11/10/2023 9:15 AM CDT Comprehensive Visit Department of Rehabilitation Services in [address] [phone] Arpan Alejo M.D. 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) documented in this encounter Administered Medications Inactive Administered Medications - up to 3 most recent administrations Medication Order MAR Action Action Date Dose Rate Site [id number] 0.25%-1%-1:200,000 injection 2-25 mL 2-25 mL, injection, As needed, may repeat if the patient complains of pain/discomfort at the site up to 50 mL for entire procedure, Starting on Wed10/01/23 at 0750, For 1 day Given 10/01/2023 1:01 PM CDT 8 mL lidocaine-EPINEPHrine 1%-1:200,000 injection 2-50 mL (XYLOCAINE W/EPI) 2-50 mL, injection, As needed, may repeat if the patient complains of pain/discomfort at the site up to 50 mL for entire procedure, Starting on Wed10/01/23 at 0750, For 1 day Given 10/01/2023 1:00 PM CDT 28 mL lidocaine-sodium bicarbonate (buffered) 0.9%-0.84% injection 2 mL 2 mL, infiltration, Once, On Wed10/01/23 at 0815, For 1 dose, Final lidocaine concentration is 0.9% (9 mg/mL) Given 10/01/2023 1:00 PM CDT 4 mL documented in this encounter Care Teams Tool Liaison Relationship Specialty Start Date End Date Hector Sandhu M.D., Ph.D. [address] [place] [phone] PCP - General Family Medicine 04/17/19 documented as of this encounter
--- OUTSIDE RECORDS SUMMARY | 2023-11-03 08:01 | XMS_ITS | Encounter Summary ---
Author Name Unknown Organization [facility] Address [address] [place] [address] Care Team Providers Care Title Assistant Name Role Phone Hector Sandhu M.D., Ph.D. Primary Care Provider Encounter Details Date Type Department Care Team (Late st Contact Info) Description 10/28/2023 1:10 PM CDT Silent Schedule Department of Ophthalmology in [address] [phone] Justin Caldwell M.D. [address] [place] [phone] Social History Tobacco Use Types Packs/Day Years Used Date Smoking Tobacco: Never Passive Smoke Exposure: Past Smokeless Tobacco: Never Comments:Occasionally smoked a cigarette or a cigar at social functions. Alcohol Use Standard Drinks/Week Comments Yes 10 (1 standard drink = 0.6 oz pu re alcohol) 1-2 daily [facility] Utilities Answer Date Recorded In the past 12 months has [employer], gas, oil, or water [employer] threatened to shut off services in your [...] How often do you attend chur or christian services? Never 10/02/2022 Do you belong to any clubs o r organizations such as faith groups, unions, fraternal or athletic groups, or [...] Answer Date Recorded PHQ-2 Score 0 07/19/2023 [facility] - Occupational Stress [...] your living situation today? I have a [facility] place to live 10/15/2023 Education Answer [...] PM CDT documented as of this encounter Plan of Treatment Upcoming Encounters Date Type Department Care Team (Late st Contact Info) Description 11/10/2023 9:15 AM CDT Comprehensive Visit Department of Rehabilitation Services in [address] [phone] Arpan Alejo M.D. [address] [place] [phone] Nicolasa Eller P.T. [address] [phone] documented as of this encounter Procedures Procedure Name Priority Date/Time Associated Diagnosis Comments AUTOMATED VF - EXTENDED - OU - BOTH EYES Routine 10/28/2023 2:05 PM CDT Prolactinoma (HCC) documented in this encounter Results * Automated VF - Extended - [...] OPHTH VISUAL FI ELD OPHTHALMOLOGY IMAGING EXAM documented in this encounter Visit Diagnoses Not on filedocumented in this encounter Care Teams Title Assistant Relationship Specialty Start Date End Date Hector Sandhu M.D., Ph.D. [phone] [phone] PCP - General Family Medicine 04/17/19 documented as of this encounter
--- OUTSIDE RECORDS SUMMARY | 2023-11-03 08:01 | XMS_ITS | Encounter Summary ---
Author Name Unknown Organization [facility] Address [address] [place] [address] Care Team Providers Care Animal Shelter Clerk Name Role Phone Hector Sandhu M.D., Ph.D. Primary Care Provider Encounter Details Date Type Department Care Team (Late st Contact Info) Description 09/14/2023 Orders Only Department of Family Medicine, [facility], in [address] [phone] Nadia Cuevas, ANDREIA, C.N.P., D.N.P. [address] [place] [phone] Social History Tobacco Use Types Packs/Day Years [...] often do you attend chur ch or baptism services? Never 10/02/2022 Do you belong to any clubs o r organizations such as anabaptist groups, unions, fraternal or athletic groups, or [...] Answer Date Recorded PHQ-2 Score 0 07/19/2023 [facility] Occupat ional Health - Occupational [...] place to sleep or slept in a fpc (including now)? No 10/02/2022 Nutrition Answer Date [...] Comprehensive Visit Department of Rehabilitation Services in [address] [phone] Arpan Alejo M.D. [address] [place] [phone] Nicolasa Eller P.T. [address] [place] [phone] documented as of this encounter Visit Diagnoses Not on filedocumented in this encounter Care Teams Animal Shelter Clerk Relationship Specialty Start Date End Date Hector Sandhu M.D., Ph.D. [address] [place] [phone] PCP - General Family Medicine 04/17/19 documented as of this encounter
--- OUTSIDE RECORDS SUMMARY | 2023-11-03 08:01 | XMS_ITS | Referral Summary ---
Author Name Unknown Organization [facility] Address [address] [place] [address] Care Team Providers Care Drying Rack Changer Name Role Phone Hector Sandhu M.D., Ph.D. Primary Care Provider Source Comments Patient records contain information from all sites at [facility]. For routine questions regarding patient records, call [phone] during business hours, M-F 8:00 AM - 5:00 PM Central Time. Record requests for emergency care only can be directed to [phone] at any time.[facility] Encounters Date Type Department Care Team Description 10/28/2023 1:10 PM CDT Silent Schedule Department of Ophthalmology in [address] [phone] Justin Caldwell M.D. 10/28/2023 1:15 PM CDT Ancillary Procedure Department of Ophthalmology in [address] [phone] Justin Caldwell M.D. Prolactinoma (HCC) (Primary Dx); Cataract Senile Nuclear Sclerosis Bilateral Discharge Disposition: Home or Self Care 10/19/2023 3:30 PM CDT Office Visit Department of Family Medicine, [facility], in [address] [phone] Hector Sandhu M.D., Ph.D. Preoperative Exam (Primary Dx); Primary Osteoarthritis Hip Left; History Of Falling Discharge Disposition: Home or Self Care 10/01/2023 12:05 AM CDT Ancillary Procedure Department of Dermatology 10/01/2023 Ancillary Procedure Department of Dermatology 10/01/2023 8:00 AM CDT Procedure visit Department of Dermatology in [place], [place] [address] [place] [phone] Vincent Culp M.D. 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) Discharge Disposition: Home or Self Care 09/15/2023 1:20 PM CDT Office Visit Department of Dermatology in [place], [place] [address] [place] [phone] Josy Fishman M.D. 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 08/19/2023 10:00 AM [facility] - 08/19/2023 11:59 PM [facility] Encounter Department of Laboratory Medicine in [address] [phone] Hector Sandhu M.D., Ph.D. Prolactinoma (HCC) Discharge Disposition: Home or Self Care 08/06/2023 Clinical Communication Department of Dermatology in [place], [place] [address] [place] [phone] Prescheduling, Provider Appt Request 08/06/2023 Orders Only Department of Dermatology in [address] [phone] Werner Nation M.B.B.S., M.D. 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) (Primary Dx) 08/06/2023 Clinical Communication Department of Dermatology in [place], [place] [address] [place] [phone] Werner Natino M.B.B.S., M.D. 08/06/2023 Orders Only Department of Dermatology in [place], [place] [address] [place] [phone] Werner Nation M.B.B.S., M.D. from Last 3 Months Allergies Active Allergy Reactions Criticality Noted Date [...] Overview: Added automatically from request for surgery [id number] COVID-19 Infection 12/22/2021 2 Olecranon Bursitis Left Elbow 10/15/2021 04/15/2022 Overview: Added automatically from request for surgery [id number] Pes Planus Left 10/06/2021 04/15/2022 Dilatation Ascending Aorta 07/13/2020 0 10/30/2020 Swelling Knee Right 02/17/2019 10/31/19 Tumor Benign Pituitary 04/26/201807/29 Pain Knee Right 04/15/2022 Immunizations Name Administration Dates Next Due HepA Adult 02/16/2023,04/15/2022 HepB Adult (HEPLISAV-B) 06/03/2022,04/15/2022 Influenza high dose QV(65 ye ars or older) (PF) 05/06/2023,04/29/2022,05/07/2021,2019 Influenza, Injectable, Quadrivalent 03/20/2013 Influenza, Seasonal, Injectable 05/17/20 12,03/25/2011,05/10/2003,2000,05/18/2000 Influenza, Unspecified 04/26/2017,04/28/2016, PCV13 04/28/2016 PPSV23(Discontinued) 03/13/2015 RZV (SHINGRIX) 09/02/2021,06/03/2021 SARS-COV-2 (COVID-19) - MODE RNA (12 YEARS AND OLDER) [id number] 05/06/2023 SARS-COV-2 (COVID-19) - PFIZ ER (Discontinued)(12 years or older) 04/03/2021,08/23/2020 SARS-COV-2 (COVID-19) - PFIZ ER BIVALENT TS(Discontinued)(12 YEARS OR OLDER) 02/16/2023,04/06/2022 SARS-COV-2 (COVID-19) - PFIZ ER TS(Discontinued)(12 years or older) 09/02/2021 Td (Adult), adsorbed 04/26/2017 Td, (Adult) Unspecified 07/30/1993 Tdap 02/12/2023,03/23/2006 Ty21a (oral) 04/24/2022,04/09/2022 TyVi (inj) 04/06/2022 influenza high dose (65 year s or older) (PF) 04/26/2019,05/27/2018 Social History Tobacco Use Types Packs/Day Years Used Date Smoking Tobacco: Never Passive Smoke Exposure: Past Smokeless Tobacco: Never Tobacco Cessation:Counseling Given: Not Answered Comments:Occasionally smoked a cigarette or a cigar at social functions. Alcohol Use Standard Drinks/Week Comments Yes 10 (1 standard drink = 0.6 oz pu re alcohol) 1-2 daily [employer] Utilities Answer Date Recorded In the past 12 months has e [employer] gas, oil, or water [employer] threatened to shut off services in your [...] often do you attend chur ch or restorationist services? Never 10/02/2022 Do you belong to any clubs o r organizations such as hindu groups, unions, fraternal or athletic groups, or [...] Answer Date Recorded PHQ-2 Score 0 07/19/2023 [facility] of Occupat ional [facility] - Occupational Stress Questionnaire Answer Date Recorded [...] your living situation today? I have a [facility] place to live 10/15/2023 Education Answer Date Recorded What is the highest level of school you have completed or the highest degree you have received? Professional school degree (e.g., , ROSSY, DVM, TIFFANIE) 12/07/2018 Sex and Gender Information [...] T Respiratory Rate 20 05/22/2022 8:35 AM OPTIMIZATION MANAGER Oxygen Saturation 98% 10/19/2023 3:22 PM CDT [...] Comprehensive Visit Department of Rehabilitation Services in [address] [phone] Arpan Alejo M.D. [address] [place] [phone] Nicolasa Eller P.TMaxime [address] [place] [phone] Procedures Procedure Name Priority Date/Time Associated Diagnosis Comments AUTOMATED VF - EXTENDED - OU - BOTH EYES Routine 10/28/2023 2:05 PM CDT Prolactinoma (HCC) CBC WITH DIFFERENTIAL, B Routine 10/19/2023 3:51 PM CDT Preoperative Exam BASIC METABOLIC PANEL, S/P Routine 10/19/2023 3:51 PM CDT Preoperative Exam DERMATOLOGY IMAGE EXAM Routine 10/01/2023 12:05 AM CDT DERMATOLOGY IMAGE EXAM Routine 10/01/2023 12:00 AM CDT PROLACTIN, S Routine 08/19/2023 10:16 AM OPTIMIZATION MANAGER Prolactinoma (HCC) LIPID PANEL, S Routine 07/19/2023 5:04 PM OPTIMIZATION MANAGER Hyperlipidemia COLONOSCOPY 05/22/2022 9:29 AM OPTIMIZATION MANAGER from Last 3 Months or Most Recently Relevant to Health Maintenance Results * Automated VF - Extended - [...] with Differential, Blood (10/19/2023 3:51 PM CDT) Hemoglobin 13.1(L) 13.2 - 16.6 g/dL 10/19/2023 [...] LAB BLOOD ADD-O N Performing Organization Address [facility]/State/[facility] Co de Phone Number [facility] [address] [place] [address], [facility] in [address] [address] * Basic Metabolic Panel (10/19/2023 3:51 PM CDT) Potassium, P 4.3 3.6 - 5.2 mmol/L [...] Sandhu M.D., Ph.D. LAB BLOOD ADD-O N [facility] [address] [place] [address], [facility] [place] [address] * cheek, right upper 14 Mohs micrographic surgery-Dermatology Image Exam (10/01/2023 12:05 AM CDT) Only the most recent of2 resultswithin the time period is included. Narrative IIMS - 10/01/2023 2:53 PM CDT This order has been created and auto-finalized to support the import of images acquired without order. The clinical documentation to support these images can be found on the encounter that produced images. Provider Not In System IMG NON RAD IMAGI NG PROCEDURES [facility] NA * Prolactin (08/19/2023 10:16 AM OPTIMIZATION MANAGER) Prolactin Total 5.2 4.0 - 15.2 ng/mL 08/19/2023 4:01 PM OPTIMIZATION MANAGER ECLR Comment: Biotin has been identified by the budget report clerk as a potential interfering substance. Higher concentrations [...] disease. Blood (Blood, Venous) 08/19/2023 10:16 AM OPTIMIZATION MANAGER 08/19/2023 3:01 PM OPTIMIZATION MANAGER Hector Sandhu M.D., Ph.D. LAB BLOOD ADD-O N [facility] [address] [place] [address], [facility] ECLR [facility] [place] [address] * Lipid Panel (07/19/2023 5:04 PM OPTIMIZATION MANAGER) Triglycerides 83 mg/dL 07/19/2023 5:28 PM OPTIMIZATION MANAGER CNFL Comment: ----REFERENCE VALUE---- Normal: <150 mg/dL Borderline High: 150-199 mg/dL High: 200-499 mg/dL Very High: > or =500 mg/dL Cholesterol, Total 154 mg/dL 2023 5:28 PM OPTIMIZATION MANAGER CNFL Comment: ----REFERENCE VALUE---- Desirable: < 200 mg/dL Borderline High: 200 - 239 mg/dL High: > or = 240 mg/dL Cholesterol, LDL, Calculated 82 mg/dL 07/19/2023 5:28 PM OPTIMIZATION MANAGER CNFL Comment: ----REFERENCE VALUE---- Desirable: <100 mg/dL Above Desirable: 100-129 mg/dL Borderline High: 130-159 mg/dL High: 160-189 mg/dL Very High: >=190 mg/dL ----ADDITIONAL INFORMATION---- LDL cholesterol calculated using the Berg/NIH equation. Cholesterol, HDL 56 >=40 mg/dL 07/19/19 5:28 PM OPTIMIZATION MANAGER CNFL Cholesterol, Non-HDL, Calculated 98 mg/dL 07/19/2023 5:28 PM OPTIMIZATION MANAGER CNFL Comment: ----REFERENCE VALUE---- Desirable: <130 mg/dL Above Desirable: 130-159 mg/dL Borderline High: 160-189 mg/dL High: 190-219 mg/dL Very High: > or =220 mg/dL Fasting (8 HR or more) yes 07/19/2023 5:06 PM OPTIMIZATION MANAGER CNFL Blood (Blood, Venous) 07/19/2023 5:04 PM OPTIMIZATION MANAGER 07/19/2023 5:06 PM OPTIMIZATION MANAGER Hector Sandhu M.D., Ph.D. LAB BLOOD ADD-O N [facility] [address] [place] [address], [facility] CNFL [facility] [place] [address] * COLONOSCOPY (05/22/2022 9:29 AM OPTIMIZATION MANAGER) Narrative Procedure Note Hardy Dhaliwal M.D. - 05/22/2022 9:[address] [facility] Patient Name: Delroy Nelson Procedure Date: [...] bowel preparation was evaluated using the BBPS ([place] BowelPreparation Scale) with scores of: Right Colon [...] Sandhu M.D., Ph.D. GI PROCEDURE OR DERABLES from Last 3 Months or Most Recently Relevant to Health Maintenance Advance Directives For more information, please contact: [phone] Documents on File Type Date Recorded Patient Admission Liaison Expl anation Advance Directives 05/10/2015 12:00 AM Leg acy document. See document viewer. * Full Code (Latest Code Status on File) Date Activated Date Inactivated Comments 05/22/2022 10:06 AM 05/22/2022 12:12 PM Question Answer Comments Full Code: Discussed * Full Code Date Activated Date Inactivated Comments 05/13/2017 10:59 AM 05/13/2017 2:13 PM Question Answer Comments Full Code: Discussed Care Teams Drying Rack Changer Relationship Specialty Start Date End Date Hector Sandhu M.D., Ph.D. [address] [place] [address] CHRIS Sampson [phone] PCP - General Family Medicine 04/17/19
--- OUTSIDE RECORDS SUMMARY | 2023-11-03 08:01 | XMS_ITS | Encounter Summary ---
Author Name Unknown Organization [facility] Address [address] [place] [address] Care Team Providers Care Beef Grinder Name Role Phone Hector Sandhu M.D., Ph.D. Primary Care Provider Encounter Details Date Type Department Care Team (Late st Contact Info) Description 10/01/2023 Ancillary Procedure Department of Dermatology Social History Tobacco Use Types Packs/Day Years [...] often do you attend chur ch or rastafarian services? Never 10/02/2022 Do you belong to any clubs o r organizations such as religious groups, unions, fraternal or athletic groups, or [...] Answer Date Recorded PHQ-2 Score 0 07/19/2023 [facility] of Occupat ional Health - [...] place to sleep or slept in a alf (including now)? No 10/02/2022 Nutrition Answer Date [...] have received? Professional school degree (e.g., , DDS, DVM, TIFFANIE) 12/07/2018 Sex and Gender [...] Comprehensive Visit Department of Rehabilitation Services in [address] [phone] Arpan Alejo M.D. [address] [place] [phone] Nicolasa Eller, P.T. [address] [place] [phone] documented as of this encounter Procedures Procedure Name Priority Date/Time Associated Diagnosis Comments DERMATOLOGY IMAGE EXAM Routine 10/01/2023 12:00 AM CDT documented in this encounter Results * cheek, left upper 13 Mohs micrographic surgery-Dermatology Image Exam (10/01/2023 12:00 AM CDT) Narrative IIMS - 10/01/2023 2:53 PM CDT This order has been created and auto-finalized to support the import of images acquired without order. The clinical documentation to support these images can be found on the encounter that produced images. Provider Not In System IMG NON RAD IMAGI NG PROCEDURES IIM[facility] NA documented in this encounter Visit Diagnoses Not on filedocumented in this encounter Care Teams Beef Grinder Relationship Specialty Start Date End Date Hector Sandhu M.D., Ph.D. [address] [place] [address] [place] [phone] PCP - General Family Medicine 04/17/19 documented as of this encounter
--- OUTSIDE RECORDS SUMMARY | 2023-11-03 08:01 | XMS_ITS | Encounter Summary ---
Author Name Unknown Organization [facility] Address [address] [place] [address] Care Team Providers Care Preservationist Name Role Phone Hector Sandhu M.D., Ph.D. Primary Care Provider Encounter Details Date Type Department Care Team (Late st Contact Info) Description 10/01/2023 12:05 AM CDT Ancillary Procedure Department of Dermatology Social History [...] often do you attend chur ch or sikh services? Never 10/02/2022 Do you belong to any clubs o r organizations such as zoroastrian groups, unions, fraternal or athletic groups, or [...] Answer Date Recorded PHQ-2 Score 0 07/19/2023 [facility] of Occupat ional Health - [...] place to sleep or slept in a chcf (including now)? No 10/02/2022 Nutrition Answer Date [...] Comprehensive Visit Department of Rehabilitation Services in [address] [phone] Arpan Alejo M.D. [address] [place] [phone] Nicolasa Eller, P.T. [address] [place] [phone] documented as of this encounter Procedures Procedure Name Priority Date/Time Associated Diagnosis Comments DERMATOLOGY IMAGE EXAM Routine 10/01/2023 12:05 AM CDT documented in this encounter Results * cheek, right upper 14 Mohs micrographic surgery-Dermatology Image Exam (10/01/2023 12:05 AM CDT) Narrative IIMS - 10/01/2023 2:53 [...] on filedocumented in this encounter Care Teams Preservationist Relationship Specialty Start Date End Date Hector Sandhu M.D., Ph.D. [address] [phone] PCP - General Family Medicine 04/17/19 documented as of this encounter
--- OUTSIDE RECORDS SUMMARY | 2023-11-03 08:01 | XMS_ITS | Encounter Summary ---
Author Name Unknown Organization [facility] Address [address] [place] [address] Care Team Providers Care Environmental Compliance Specialist Name Role Phone Hector Sandhu M.D., Ph.D. Primary Care Provider Reason for Referral * Outpatient (Routine) - Authorized Specialty Diagnoses / Procedures Referred By Gunnar stern Referred To Contact Procedures OPH General eye exam Justin Caldwell M.D. [address] [place] [phone] [facility] Referral ID Status Reason Start Date Expiration Date V isits Requested Visits Authorized [id number] Authorized 10/28/2023 10/27/2024 1 1 Reason for Visit * Reason Comments Eye Exam * Outpatient (Routine) - Closed Specialty Diagnoses / Procedures Referred By Gunnar stern Referred To Contact Ophthalmology Justin Caldwell M.D. [address] [place] [phone] [facility] Referral ID Status Reason Start Date Expiration Date Visits Re quested Visits Authorized [id number] Closed 10/20/2022 10/19/2025 1 1 Encounter Details Date Type Department Care Team (Latest Contact Info) Description 10/28/2023 1:15 PM CDT Ancillary Procedure Department of Ophthalmology in [place], [place] [address] [place] [phone] Justin Caldwell M.D. [address] [place] [phone] Prolactinoma (HCC) (Primary Dx); Cataract Senile Nuclear Sclerosis Bilateral Discharge Disposition: Home or Self Care Social History Tobacco Use Types Packs/Day Years Used Date Smoking Tobacco: Never Passive Smoke Exposure: Past Smokeless Tobacco: Never Comments:Occasionally smoked a cigarette or a cigar at social functions. Alcohol Use Standard Drinks/Week Comments Yes 10 (1 standard drink = 0.6 oz pu re alcohol) 1-2 daily [facility] Utilities Answer Date Recorded In the past 12 months has e [employer], gas, oil, or water [employer] threatened to shut off services in your [...] often do you attend chur ch or sabianist services? Never 10/02/2022 Do you belong to any clubs o r organizations such as scientology groups, unions, fraternal or athletic groups, or [...] Answer Date Recorded PHQ-2 Score 0 07/19/2023 [facility] of Occupat ional Health - Occupational [...] your living situation today? I have a [place] place to live 10/15/2023 Education Answer Date [...] PM CDT documented as of this encounter Progress Notes * Justin Caldwell M.D. - 10/28/2023 1:15 PM CDT Delroy Nelson was seen today for Eye Exam #1 Prolactinoma (HCC) #2 Cataract Senile Nuclear Sclerosis Bilateral Here for complete exam and Richardson visual field. Reports no vision changes. 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 Exam is normal today. Richardson visual field full both eyes today. NSC both eyes, vision stable both eyes, observe. Updated Mrx declined by patient. Rtc 1 year CEE w/ Richardson visual field, Neurology/MRI as scheduled., sooner if any vision changes. documented in this encounter Plan of Treatment Upcoming Encounters Date Type Department Care Team (Late st Contact Info) Description 11/10/2023 9:15 AM CDT Comprehensive Visit Department of Rehabilitation Services in [address] [phone] Arpan Alejo M.D. [address] [place] [phone] Nicolasa Eller P.T. [address] [phone] Scheduled Orders Name Type Priority Associated Diagnoses Orde r Schedule OPH General eye exam Procedures Routine Expe cted: 10/27/2024 (Approximate), Expires: 01/26/2025 documented as of this encounter Procedures Procedure [...] EXAM documented in this encounter Visit Diagnoses Diagnosis Prolactinoma (HCC)- Primary Cataract Senile Nuclear Sclerosis Bilateral documented in this encounter Care Teams Environmental Compliance Specialist Relationship Specialty Start Date End Date Hector Sandhu M.D., Ph.D. [address] [phone] PCP - General Family Medicine 04/17/19 documented as of this encounter
--- OUTSIDE RECORDS SUMMARY | 2023-11-03 08:01 | XMS_ITS | Encounter Summary ---
Author Name Unknown Organization [facility] Address [address] [place] [address] Care Team Providers Care Lyft Driver Name Role Phone Hector Sandhu M.D., Ph.D. Primary Care Provider Reason for Referral * Outpatient (Routine) - Authorized Specialty Diagnoses / Procedures Referred By Gunnar stern Referred To Contact Dermatology Diagnoses Cancer Skin Basal Cell Personal History Melanoma Personal History Cancer Skin Squamous Cell Personal History Josy Fishman M.D. [address] [place] [phone] [facility] Referral ID Status Reason Start Date Expiration Date V isits Requested Visits Authorized [id number] Authorized 09/15/2023 03/16/2025 1 1 Reason for Visit * Outpatient (Routine) - Closed Specialty Diagnoses / Procedures Referred By Gunnar stern Referred To Contact Dermatology Werner Nation M.B.B.S., M.D. [address] [place] [phone] [facility] Referral ID Status Reason Start Date Expiration Date Visits Re quested Visits Authorized [id number] Closed 08/06/2023 02/04/2025 1 1 Encounter Details Date Type Department Care Team ([facility] st Contact Info) Description 09/15/2023 1:20 PM CDT Office Visit Department of Dermatology in [place], [place] [address] [place] [phone] Josy Fishman M.D. [address] [place] [phone] Cancer Skin Basal Cell Personal History (Primary Dx); Melanoma Personal History; Cancer Skin Squamous Cell Personal History; Keratosis Actinic; Keratosis Seborrheic Inflamed; Dermatoheliosis; Nevi Multiple; Xerosis Discharge Disposition: Home or Self Care Social [...] any clubs o r organizations such as methodist groups, unions, fraternal or athletic groups, or [...] Answer Date Recorded PHQ-2 Score 0 07/19/2023 [facility] of Occupat ional Health - Occupational Stress [...] place to sleep or slept in a longterm (including now)? No 10/02/2022 Nutrition Answer Date [...] as of this encounter Progress Notes * Josy Fishman M.D. - 09/15/2023 1:20 PM CDT SUBJECTIVE CHIEF COMPLAINT Personal history of melanoma nonmelanoma skin cancer, follow-up skin exam HISTORY OF THE PRESENT ILLNESS Delroy Nelson is a pleasant 73 y.o. male who follows up for a history of melanoma and nonmelanoma skin cancer as below: - remote history of two basal cell carcinomas treated outside - at least squamous cell carcinoma in-situ biopsied upon most recent dermatology evaluation in July of 2023 of the left cheek - malignant melanoma in-situ of the right cheek biopsied July 2023 Both are scheduled for Mohs surgery on 30 of September. Today he presents for his first comprehensiveskin examination. - spots of concern: Itchy bump on the left abdomen and right flank - he wears a hat but he has not always diligent with wearing sunscreen. - family history is significant for melanoma in two siblings . There are no other skin concerns today. OBJECTIVE PHYSICAL EXAM General: Awake, alert, in no acute distress, and with appropriate affect. Skin: Full skin exam including scalp, face, neck, chest, back, abdomen, arms, legs, hands, feet, genitalia, buttocks, oral mucosa, and conjunctivae was performed Numerous rough raised pink to hyperpigmented macules and papules noted on the forehead bilateral cheeks nose Numerous hyperpigmented macules and papules scattered over the trunk and extremities many of which were examined under dermoscopy with reassuring patterns Raised verrucous stuck on papules two of which on the left abdomen and right flank appear to have excoriation and surrounding inflammation - scar biopsies observed on right cheek and left cheek There are no other skin lesions of concern in the areas examined. ASSESSMENT / PLAN #1 Cancer Skin Basal Cell Personal History #2 Melanoma Personal History #3 Cancer Skin Squamous Cell Personal History - recommend at least annual dermatology examination. Advised diligent use of sunscreens, sun-protective behaviors, monthly skin checks and report of anynew or changing skin lesions. #4 Keratosis Actinic - discussed options of treatment including fifth therapy with five FU versus PDT. He prefers cryotherapy. CONSENT Discussed the risks, benefits, alternatives, and the necessity of other members of the healthcare team participating in the procedure. All questions answered and consent given. PROCEDURE INFORMATION Given the precancerous nature of this lesion(s), treatment is medically indicated. After discussionof the risks, benefits and alternatives to treatment with cryotherapy, informed consent was obtained. We treated a total of 10 lesion(s) with two 20-second freeze-thaw cycles of liquid nitrogen cryotherapy. The patient tolerated the procedure well. Aftercare instructions were provided in written and verbal form to the patient. Should any of these lesions recur, the patient should return for biopsy or further evaluation. #5 Keratosis Seborrheic Inflamed x2 After explaining the procedure, discussing the associated risks, benefits, and alternatives, and obtaining verbal informed consent, the lesion(s) underwent treatment with liquid nitrogen cryotherapy in the standard fashion. Wound care was discussed. Patient offered educational materials. #6 Dermatoheliosis #7 Nevi Multiple The ABCDE criteria for melanoma was reviewed with the patient. None of the patient's nevi reach theclinical threshold for biopsy. I recommend continued sun protection including SPF 30 or higher, self-skin examinations, and observation. Should any of the patient's nevi change in size, color, texture, or shape or develop symptoms such as itching or bleeding, I recommend an immediate return visit for reassessment. #8 Dryness and pruritus of the back - recommend over the counter anti-itch lotion such as CeraVe itch relief moisturizer documented in this encounter Plan of Treatment Upcoming Encounters Date Type Department Care Team (Late st Contact Info) Description 11/10/2023 9:15 AM CDT Comprehensive Visit Department of Rehabilitation Services in [address] [phone] Arpan Alejo M.D. [address] [place] [phone] Nicolasa Eller, P.T. [address] [place] [phone] Scheduled Referrals Name Type Priority Associated Diagnoses Order Schedule Dermatology office visit (clinic) Outpatient Referral Routine Cancer Skin Basal Cell Personal History Melanoma Personal History Cancer Skin Squamous Cell Personal History Expected: 09/14/2024 (Approximate), Expires: 12/15/2024 documented as of this encounter Visit Diagnoses Diagnosis Cancer Skin Basal Cell Personal History- Primary Melanoma Personal History Cancer Skin Squamous Cell Personal History Keratosis Actinic Keratosis Seborrheic Inflamed Dermatoheliosis Nevi Multiple Xerosis documented in this encounter Care Teams Lyft Driver Relationship Specialty Start Date End Date Hector Sandhu M.D., Ph.D. [address] [place] [phone] PCP - General Family Medicine 04/17/19 documented as of this encounter
--- OUTSIDE RECORDS SUMMARY | 2023-11-03 08:01 | XMS_ITS | Encounter Summary ---
Author Name Unknown Organization [facility] Address [address] [place] [address] Care Team Providers Care Poultry Farm Supervisor Name Role Phone Hector Sandhu M.D., Ph.D. Primary Care Provider Reason for Visit * Reason Comments [facility] Appointment Request (Routine) - Closed Specialty Diagnoses / Procedures Referred By [facility] Referred To Contact Family Medicine Referral ID Status Reason Start Date Expiration Date Visits Re quested Visits Authorized [id number] Closed 08/09/2023 08/08/2024 1 1 Encounter Details Date Type Department Care Team (Latest Contact Info) Description 10/19/2023 3:30 PM CDT Office Visit Department of Family Medicine, [facility], in [address] [phone] Hector Sandhu M.D., Ph.D. [address] [place] [phone] Preoperative Exam (Primary Dx); Primary Osteoarthritis Hip Left; History Of Falling Discharge Disposition: Home or Self Care Social History Tobacco Use Types Packs/Day Years Used Date Smoking Tobacco: Never Passive Smoke Exposure: Past Smokeless Tobacco: Never Tobacco Cessation:Counseling Given: Not Answered Comments:Occasionally smoked a cigarette or a cigar at social functions. Alcohol Use Standard Drinks/Week Comments Yes 10 (1 standard drink = 0.6 oz pu re alcohol) 1-2 daily [facility] Utilities Answer Date Recorded In the past 12 months has th e electric, gas, oil, or water company threatened to shut off services in your [...] often do you attend chur ch or oriental orthodox services? Never 10/02/2022 Do you belong to [...] Answer Date Recorded PHQ-2 Score 0 07/19/2023 [facility] [place] of Occupat ional Health - Occupational Stress [...] your living situation today? I have a [facility] place to live 10/15/2023 Education Answer Date [...] 10/19/2023 3:22 PM CD T Respiratory Rate - - Oxygen Saturation 98% 10/19/2023 3:22 PM CDT Inhaled Oxygen Concentration - - Weight 102 kg (225 lb 5 oz) 10/19/2023 3:22 PM C DT Height 190 cm (6' 2.8) 10/19/2023 3:22 PM CDT Body Mass Index 28.31 10/19/2023 3:22 PM CDT documented in this encounter H&P Notes * Hector Sandhu M.D., Ph.D. - 10/19/2023 3:30 PM CDT SUBJECTIVE CHIEF COMPLAINT / REASON FOR VISIT Delroy Nelson is a 73 y.o. male who presents for evaluation of Pre-op Exam (10/31 hip replacement [facility]). HISTORY OF PRESENT ILLNESS Here for preop evaluation. Planned procedure includes left total hip arthroplasty on 11/01/[address] [facility]. No personal history or family history of surgical or anesthesia complications. Medical problems are stable. Current Outpatient Medications: acetaminophen (TYLENOL) 500 mg tablet, Take 1,000 mg by mouth every 6 (six) hours as needed for pain., Disp: , Rfl: EPINEPHrine 0.3 mg/0.3 mL injection syringe, Inject 0.3 mg intramuscularly as needed., Disp: , Rfl: ibuprofen (ADVIL,MOTRIN) 200 mg tablet, Take 400 mg by mouth 2 (two) times a day., Disp: , Rfl: rosuvastatin (CRESTOR) 10 mg tablet, TAKE 1 TABLET(10 MG) BY MOUTH DAILY, Disp: 90 tablet, Rfl: 3 tadalafiL (CIALIS) 5 mg tablet, TAKE 1 TABLET BY MOUTH DAILY., Disp: 90 tablet, Rfl: 11 Allergies Allergen Reactions Bee Venom Protein (Honey Bee) Anaphylaxis Past Medical History: Diagnosis Date BenignProstatic Hyperplasia Localized 2019? Depressive Disorder 1991 Mass Pituitary (HCC) Measles Mumps Other Specified Health Status 1991 Polyp Colon 2009? Varicella Past Surgical History: Procedure Laterality Date APPLICATION STEREOTACTIC HEAD FRAME N/A 04/29/2021 Procedure: APPLICATION STEREOTACTIC HEAD FRAME; Surgeon: Delta Parrish M.D.; Location: [facility] ROMBOR ARTHROSCOPY KNEE MENISCUS Right 06/12/2019 Procedure: ARTHROSCOPY KNEE MENISCUS - PARTIAL MEDIAL MENISECTOMY-Right knee arthroscopy,partial medial menisectomy; Surgeon: Arpan Alejo M.D.; Location: [facility] OR COLONOSCOPY N/A 05/22/2022 Procedure: COLONOSCOPY-a; Surgeon: Hardy Dhaliwal M.D.; Location: [facility] GI LAB COLONOSCOPY - POSSIBLE BIOPSY Left 05/13/2017 Procedure: COLONOSCOPY - POSSIBLE BIOPSY; Surgeon: Tunde Yoder M.D.; Location: [facility] CACF OR GAMMA KNIFE N/A 04/29/2021 Procedure: GAMMA KNIFE.; Surgeon: Delta Parrish M.D.; Location: [facility] ROMB OR HERNIA REPAIR OTHER CONVERTED SHX (SEE COMMENT) N/A 09/17/1989 Application of epidural blood patch. OTHER CONVERTED SHX (SEE COMMENT) N/A 09/13/1989 Transsphenoidal removal of pituitary adenoma. (operating microscope) OTHER SURGICAL HISTORY 1990,2018 TONSILLECTOMY N/A 1955 Tonsillectomy TONSILLECTOMY 1955 Family History Problem Relation Name Age of Onset Hypertension Mother Mariam Dementia Mother Mariam Cataracts Mother Mariam Hysterectomy Mother Mariam Prostate cancer Father Strange Depression Father Strange Cataracts Sister Preeti Melanoma Sister Irma Prostate cancer Brother Peter Melanoma Brother Peter Drug abuse Brother Tsuart Depression Brother Stuart Alcoholic Brother Stuart Alcohol abuse Brother Stuart Coronary artery disease Maternal Grandmother Mary Jo Melanoma Sister Kaitlynn Anesthesia problems Neg Hx Amblyopia Neg Hx Blindness Neg Hx Corneal Dystrophy Neg Hx Glaucoma Neg Hx Macular degeneration Neg Hx Retinal degeneration Neg Hx Retinal detachment Neg Hx Strabismus Neg Hx Vision loss Neg Hx Social History Socioeconomic History Marital status: Spouse name: Not on file Number of children: Not on file Years of education: Not on file Highest education level: Professional school degree (e.g., MD, DDS, DVM, TIFFANIE) Occupational History Not on file Tobacco Use Smoking status: Never Passive exposure: Past Smokeless tobacco: Never Tobacco comments: Occasionally smoked a cigarette or a cigar at social functions. Vaping Use Vaping status: never used Substance and Sexual Activity Alcohol use: Yes Alcohol/week: 10.0 standard drinks of alcohol Types: 2 Cans of beer, 8 Shots of liquor per week Comment: 1-2 daily Drug use: Not Currently Types: Marijuana Comment: Patient states in college Sexual activity: Yes Partners: Female control/protection: Post-menopausal Other Topics Concern Caffeine Concern Not Asked Social History Narrative Not on file Social Determinants of Health Food Insecurity: No Food Insecurity (10/15/2023) Hunger Vital Sign Worried About Running Out of Food in the Last Year: Never true Ran Out of Food in the Last Year: Never true Transportation Needs: No Transportation Needs (10/15/2023) PRAPARE - Transportation Lack of Transportation (Medical): No Lack of Transportation (Non-Medical): No Physical Activity: Sufficiently Active (10/15/2023) Exercise Vital Sign Days of Exercise per Week: 7 days Minutes of Exercise per Session: 60 min Intimate Partner Violence: Not At Risk (10/02/2022) Humiliation, Afraid, Rape, and Kick questionnaire Fear of Current or Ex-Partner: No Emotionally Abused: No Physically Abused: No Sexually Abused: No Housing Stability: Low Risk (10/15/2023) Housing Stability Housing: Living Situation: I have a steady place to live The following portions of the patient's history were reviewed and updated as appropriate: allergies, current medications, family history, medical history, social history, surgical history, and problem list. REVIEW OF SYSTEMS All other systems reviewed and are negative. OBJECTIVE PHYSICAL EXAM Vitals: 10/19/23 1522 BP: 125/82 Patient Position: Sitting Pulse: 63 Temp: (!) 35.3 ??C Height: 190 cm Weight: 102 kg SpO2: 98% Vitals and nursing note reviewed. Constitutional Appearance: Normal appearance. He is well-developed. HENT Head: Normocephalic and atraumatic. Right Ear: Tympanic membrane, ear canal and external ear normal. Left Ear: Tympanic membrane, ear canal and external ear normal. Nose: Nose normal. Mouth/Throat: Mouth: Mucous membranes are moist. Pharynx: Oropharynx is clear. Eyes Conjunctiva/sclera: Conjunctivae normal. Neck Thyroid: No thyromegaly. Cardiovascular Rate and Rhythm: Normal rate and regular rhythm. Heart sounds: Normal heart sounds. Pulmonary Effort: Pulmonary effort is normal. Breath sounds: Normal breath sounds. No rales. Chest Chest wall: No tenderness. Abdominal General: Bowel sounds are normal. Palpations: Abdomen is soft. Musculoskeletal Cervical back: Normal range of motion and neck supple. Lymphadenopathy Cervical: No cervical adenopathy. Skin General: Skin is warm and dry. Findings: No rash. Neurological General: No focal deficit present. Mental Status: He is alert and oriented to person, place, and time. Psychiatric Behavior: Behavior normal. Thought Content: Thought content normal. Judgment: Judgment normal. ASSESSMENT / PLAN #1 Preoperative Exam He is optimized for the procedure. - CBC with Differential, Blood; Future; Expected date: 10/19/2023 - Basic Metabolic Panel; Future; Expected date: 10/19/2023 - Basic Metabolic Panel - CBC with Differential, Blood #2 Primary Osteoarthritis Hip Left Management per specialist. #3 History Of Falling He was advised: Remove home hazards (clean up clutter, repair or remove tripping hazards). Wear sensible shoes evenwhen indoors. Avoid loose clothing. Light up living space. Use assistive devices, including handrails and grab bars, cane, walker, etc. Move carefully and deliberately. Stay active. Consider physicaltherapy for strengthening or gait therapy. documented in this encounter Plan of Treatment Upcoming Encounters Date Type Department Care Team (Late st Contact Info) Description 11/10/2023 9:15 AM CDT Comprehensive Visit Department of Rehabilitation Services in [address] [phone] Arpan Alejo M.D. [address] [place] [phone] Nicolasa Eller P.T. [address] [place] [phone] documented as of this encounter Procedures Procedure Name Priority Date/Time Associated Diagnosis Comments CBC WITH DIFFERENTIAL, B Routine 10/19/2023 3:51 PM CDT Preoperative Exam BASIC METABOLIC PANEL, S/P Routine 10/19/2023 3:51 PM CDT Preoperative Exam documented in this encounter Results * Basic Metabolic Panel (10/19/2023 3:51 PM [...] Sandhu M.D., Ph.D. LAB BLOOD ADD-O N [facility] [address] [place] [phone], [facility] in [address] [address] * (ABNORMAL) CBC with Differential, Blood (10/19/2023 3:51 PM CDT) [facility] Hemoglobin 13.1(L) 13.2 - 16.6 g/dL 10/19/2023 [...] LAB BLOOD ADD-O N Performing Organization Address City/State/[facility] Co de Phone Number [facility] [address] [place] [phone] [place] [address] [phone] documented in this encounter Visit Diagnoses Diagnosis Preoperative Exam- Primary Primary Osteoarthritis Hip Left History Of Falling documented in this encounter Care Teams Poultry Farm Supervisor Relationship Specialty Start Date End Date Hector Sandhu M.D., Ph.D. [address] [place] [phone] PCP - General Family Medicine 04/17/19 documented as of this encounter
--- OUTSIDE RECORDS SUMMARY | 2023-11-03 08:01 | XMS_ITS | Encounter Summary ---
Author Name Unknown Organization [facility] Address [address] [place] [address] Care Team Providers Care Electrician Master Name Role Phone Hector Sandhu M.D., Ph.D. Primary Care Provider Reason for Visit * Reason Onset Date Comments Appt Request 08/06/2023 Encounter Details Date Type Department Care Team (Late st Contact Info) Description 08/06/2023 Clinical Communication Department of Dermatology in [place], [place] [address] [place] [phone] Prescheduling, Provider Appt Request Social History Tobacco Use Types Packs/Day Years [...] often do you attend chur ch or jain services? Never 10/02/2022 Do you belong to any clubs o r organizations such as evangelical groups, unions, fraternal or athletic groups, or [...] Date Recorded PHQ-2 Score 0 07/19/2023 [facility] - Occupational Stress Questionnaire Answer Date Recorded [...] place to sleep or slept in a halfway (including now)? No 10/02/2022 Nutrition Answer Date [...] Comprehensive Visit Department of Rehabilitation Services in [address] [phone] Arpan Alejo M.D. [address] [place] [phone] Nicolasa Eller P.T. [address] [phone] documented as of this encounter Visit Diagnoses Not on filedocumented in this encounter Care Teams Electrician Master Relationship Specialty Start Date End Date Hector Sandhu M.D., Ph.D. [address] [place] [phone] PCP - General Family Medicine 04/17/19 documented as of this encounter
--- OUTSIDE RECORDS SUMMARY | 2023-11-03 08:02 | XMS_ITS | Encounter Summary ---
Author Name Unknown Organization [facility] Address [address] [place] [address] Care Team Providers Care Engineer And Geologist Name Role Phone Hector Sandhu M.D., Ph.D. Primary Care Provider Reason for Visit * Outpatient (Routine) - Closed Specialty Diagnoses / Procedures Referred By Gunnar stern Referred To Contact Dermatology Diagnoses Lesion Skin Face Hector Sandhu M.D., Ph.D. [address] [place] [address] [place] [phone] [facility] Referral ID Status Reason Start Date Expiration Date V isits Requested Visits Authorized [id number] Closed Specialty Services Required 07/23/2023 01/21/2025 1 1 Encounter Details Date Type Department Care Team (Latest Contact Info) Description 07/30/2023 4:40 PM COMPLIANCE COUNSEL Comprehensive Visit Department of Dermatology in [place], [place] [address] [place] [address] Werner Nation M.B.B.S., MSimone. [address] [place] [phone] Cancer Skin Basal Cell Personal History (Primary Dx); Lesion Skin Face; Keratosis Actinic [L57.0] Social History Tobacco Use Types Packs/Day Years [...] often do you attend chur ch or roman catholic services? Never 10/02/2022 Do you belong to any clubs o r organizations such as hoahaoism groups, unions, fraternal or athletic groups, or [...] Answer Date Recorded PHQ-2 Score 0 07/[facility] - [facility] Questionnaire Answer Date [...] place to sleep or slept in a mcc (including now)? No 10/02/2022 Nutrition Answer Date [...] PM CDT documented as of this encounter Consult Notes * Kassidy Ramires M.D. - 07/30/2023 4:40 PM CST Correspondence To: Teofilo Cullen M.D. Referring provider: Hector Sandhu M.D., Ph.D. Supervising cassandra consultant, Dr. Werner Mccarthy, supervised the visit. SUBJECTIVE CHIEF COMPLAINT/REASON FOR VISIT Limited skin check HISTORY OF PRESENT ILLNESS Delroy Nelson is a 73 y.o. male who has been referred by Hector Sandhu M.D., Ph.D. on 07/30/23 for the above chief complaint. They have a history of non-melanoma skin cancer involving the head which was treated elsewhere. They have 1 spot(s) on their left cheek that they are worried about today. This area was treated with cryotherapy, but it returned and has become tender. Two of his siblings had melanoma, neither fatal cases. REVIEW OF SYSTEMS Denies history of any other rash or lesion MEDICAL/SURGICAL HISTORY Reviewed OBJECTIVE PHYSICAL EXAMINATION General: Well appearing male in no acute distress. Alert and Oriented. Skin: I examined the face. Involving the left malar cheek is an approximately 3 mm hyperkeratotic papule on an erythematous base Involving the right malar cheek is a macule with uneven dark brown pigment arranged in a reticular pattern with moth-eaten borders On the nasal tip and left malar cheek, there are gritty, erythematous macules x 2 ASSESSMENT / PLAN # Skin cancer screening examination # Personal history of basal cell carcinoma # Dermatoheliosis Discussed with the patient that if any of the lesions change, bleed, or begin to grow rapidly, to let us know when we will re-evaluate them sooner. My recommendation is using SPF >30, with frequent applications every 2 hours. I would recommend a full skin cancer screening examination with an appropriately trained clinician every year. # Skin tumor of uncertain behavior I explained the patient that I would like to acquire a biopsy of these lesion(s) for evaluation by our dermatopathologists. The patient expressed understanding and agreement with this plan. Site: Right malar cheek Differential Dx: lentigo vs. Lentigo maligna Photographs obtained. Shave biopsy performed. Biopsy submitted to dermatopathology for H&E. Site: Left malar cheek Differential Dx: NMSC vs. HAK Photographs obtained. Shave biopsy performed. Biopsy submitted to dermatopathology for H&E. INFORMED CONSENT Discussed the risks, benefits, alternatives, and the necessity of other members of the healthcare team participating in the procedure. All questions answered and consent given. PROCEDURAL PAUSE Prior to the procedure, final verification of the patient identity and correct marked surgical sitewas performed. SHAVE BIOPSY PROCEDURE The anesthesia used was 1% lidocaine with epinephrine 1:200,000. The skin was prepped in a sterile fashion with alcohol. Shave biopsy specimen(s) obtained. Blood loss: Minimal. Complications: None. Wound care: Routine. Specimen(s) sent for dermatopathology. The pathology report and recommendations will be communicated to the patient. # Actinic keratoses, left malar cheek and nose x 2 Given the precancerous nature of this lesion(s), treatment is medically indicated. After discussionof the risks, benefits and alternatives to treatment with cryotherapy, informed consent was obtained. We treated the aforementioned lesion(s) with 2, 20-second freeze-thaw cycles of liquid nitrogen cryotherapy. The patient tolerated the procedure well. Aftercare instructions were provided in written and verbal form to the patient. Should any of these lesions recur, the patient should return for biopsy or further evaluation. Discussed the risks, benefits, alternatives, and the necessity of othermembers of the healthcare team participating in the procedure. All questions answered and consent given. CORRESPONDENCE Patient would prefer correspondence via the patient portal. All questions answered. PATIENT EDUCATION Explained diagnosis and treatment plan; patient/guardian of patient expressed understanding of the content. LIANCE COUNSEL Associated attestation - Werner Nation M.B.B.S., M.D. - 08/02/2023 1:44 PM COMPLIANCE COUNSEL I saw and evaluated the patient, participating in the alvarenga portions of the service. I reviewed the resident???s note. I agree with the resident???s findings and plan. I was present for the entire minor procedure. I was present for the alvarenga/critical portion and immediately available for the entire major procedure. documented in this encounter Plan of Treatment Upcoming Encounters Date Type Department Care Team (Late st Contact Info) Description 11/10/2023 9:15 AM CDT Comprehensive Visit Department of Rehabilitation Services in [address] [phone] Arpan Alejo M.D. [address] [place] [phone] Nicolasa Eller, PMaximeTMaxime [address] [place] [phone] documented as of this encounter Procedures Procedure Name Priority Date/Time Associated Diagnosis Comments DERMATOPATHOLOGY Routine 07/30/2023 4:32 PM COMPLIANCE COUNSEL Lesion Skin Face documented in this encounter Results * Dermatopathology (07/30/2023 4:32 PM COMPLIANCE COUNSEL) 08/05/2023 3:11 PM COMPLIANCE COUNSEL PDRM Report electronically signed by Mary Jo Telles M.D. Seen in consultation with: Bradley Saldivar M.D. 08/05/2023 3:11 PM COMPLIANCE COUNSEL PDRM Gross Description A: Received in formalin [...] and submitted entirely in cassette A1. Grossedby ISABELA. B: Received in formalin labeled with the patient's name, medical record number, and right malar cheek is a 1.0 x 0.8 x 0.1 cm pale tanskin shave biopsy. Encompassing nearly the entire skin surface is a 0.8 x 0.6 cm pale quinteros-brown, pigmented lesion with irregular borders.Specimen is trisected and submitted entirely in cassette B1. ??Grossed by ISABELA. 08/05/2023 3:11 PM COMPLIANCE COUNSEL PDRM Interpretation FINAL DIAGNOSIS A. ??Left Malar [...] assessment of this case. 08/05/2023 3:11 PM COMPLIANCE COUNSEL PDRM Skin (Left Malar Cheek) 07/30/2023 4:31 PM COMPLIANCE COUNSEL Skin (Right Malar Cheek) 07/30/2023 4:32 PM COMPLIANCE COUNSEL Xu Pressley LAB PATH DERM ORDERABLES [facility] [address] [place] [address], [facility] PDRM [address] [facility] [address] [place] [phone] documented in this encounter Visit Diagnoses Diagnosis Cancer Skin Basal Cell Personal History- Primary Lesion Skin Face Keratosis Actinic [L57.0] documented in this encounter Care Teams Engineer And Geologist Relationship Specialty Start Date End Date Hector Sandhu M.D., Ph.D. [address] [phone] PCP - General Family Medicine 04/17/19 documented as of this encounter
--- OUTSIDE RECORDS SUMMARY | 2023-11-03 08:02 | XMS_ITS | Encounter Summary ---
Author Name Unknown Organization [facility] Address [address] [place] [address] Care Team Providers Care Technical Sourcing Recruiter Name Role Phone Hector Sandhu M.D., Ph.D. Primary Care Provider Encounter Details Date Type Department Care Team (Late st Contact Info) Description 08/06/2023 Clinical Communication Department of Dermatology in [place], [place] [address] [place] [phone] Werner Nation M.B.B.SMaxime, MSimone. [address] [place] [phone] Social History Tobacco Use Types Packs/Day Years [...] How often do you attend chur or sabianism services? Never 10/02/2022 Do you belong to any clubs o r organizations such as jew groups, unions, fraternal or athletic groups, or [...] Answer Date Recorded PHQ-2 Score 0 07/19/2023 [facility] - [...] place to sleep or slept in a mcfp (including now)? No 10/02/2022 Nutrition Answer Date [...] PM CDT documented as of this encounter Miscellaneous Notes * Telephone Encounter - Werner Naiton M.B.B.S., M.D. - 08/06/2023 12:27 PM CST I called patient today to discuss on the biopsy results. 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 I reviewed the diagnosis with the patient. I recommended Mohs surgery for this. We reviewed the surgery and recommended patient to plan to be here for the entire day for the procedure. In addition, I also recommend a full skin cancer screening exam. During his visit, only face exam was performed. He will make an appointment for a full skin cancer screening exam now and I also recommended follow-up every year. 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 I reviewed this and also recommended Mohs surgery which can be performed on the same day. Patient reports that he has hip surgery scheduled in a week from now. I recommended patient to contact his surgeon regarding this to see if they are comfortable with proceeding or if they would prefer postponing the surgery. We also had a brief discussion on prophylactic antibiotics if he proceeds with hip surgery and then has Mohs surgery. All this will again be discussed with the surgeon during his procedure depending upon the response from his hip surgeon. All questions answered today. He was appreciative of my call. LING ENGINEERING MANAGER documented in this encounter Plan of Treatment Upcoming Encounters Date Type Department Care Team (Late st Contact Info) Description 11/10/2023 9:15 AM CDT Comprehensive Visit Department of Rehabilitation Services in [address] [phone] Arpan Alejo M.D. [address] [place] [phone] Nicolasa Eller PMaximeT. [address] [place] [phone] documented as of this encounter Visit Diagnoses Not on filedocumented in this encounter Care Teams Technical Sourcing Recruiter Relationship Specialty Start Date End Date Hector Sandhu M.D., Ph.D. [address] [place] [phone] PCP - General Family Medicine 04/17/19 documented as of this encounter
--- OUTSIDE RECORDS SUMMARY | 2023-11-03 08:02 | XMS_ITS | Encounter Summary ---
Author Name Unknown Organization [facility] Address [address] [place] [address] Care Team Providers Care Script Developer Name Role Phone Hector Sandhu M.D., Ph.D. Primary Care Provider Encounter Details Date Type Department Care Team (Late st Contact Info) Description 07/30/2023 Ancillary Procedure Department of Dermatology Social History [...] often do you attend chur ch or gnosticist services? Never 10/02/2022 Do you belong to any clubs o r organizations such as restorationist groups, unions, fraternal or athletic groups, or [...] place to sleep or slept in a custodial (including now)? No 10/02/2022 Nutrition Answer Date [...] Comprehensive Visit Department of Rehabilitation Services in [address] [phone] Arpan Alejo M.D. [address] [place] [phone] Nicolasa Eller, P.T. [address] [place] [phone] documented as of this encounter Procedures Procedure Name Priority Date/Time Associated Diagnosis Comments DERMATOLOGY IMAGE EXAM Routine 07/30/2023 12:00 AM UNDERWRITING TECHNICIAN documented in this encounter Results * Face 507-Dermatology Image Exam (07/30/2023 12:00 AM UNDERWRITING TECHNICIAN) Narrative IIMS - 07/30/2023 4:52 PM UNDERWRITING TECHNICIAN This order has been created and auto-finalized to support the import of images acquired without order. The clinical documentation to support these images can be found on the encounter that produced images. Provider Not In System IMG NON RAD IMAGI NG PROCEDURES IIMS NA documented in this encounter Visit Diagnoses Not on filedocumented in this encounter Care Teams Script Developer Relationship Specialty Start Date End Date Hector Sandhu M.D., Ph.D. [address] [place] [address] CHRIS Sampson [phone] PCP - General Family Medicine 04/17/19 documented as of this encounter
--- OUTSIDE RECORDS SUMMARY | 2023-11-03 08:02 | XMS_ITS | Encounter Summary ---
Author Name Unknown Organization [facility] Address [address] [place] [address] Care Team Providers Care Marketing Research Intern Name Role Phone Hector Sandhu M.D., Ph.D. Primary Care Provider Reason for Referral * Outpatient (Routine) - Closed Specialty Diagnoses / Procedures Referred By Gunnar stern Referred To Contact Dermatology Diagnoses 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) Procedures REHAN MOHS 1-4 sites Werner Nation M.B.B.S., M.D. [address] [place] [phone] [facility] Referral ID Status Reason Start Date Expiration Date Visits Re quested Visits Authorized [id number] Closed 08/06/2023 08/05/2024 1 1 STOS SHINGLE ROOFER Encounter Details Date Type Department Care Team (Late st Contact Info) Description 08/06/2023 Orders Only Department of Dermatology in [place], [place] [address] [place] [phone] Werner Nation M.B.B.S., M.D. [address] [place] [phone] 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) (Primary Dx) Social History Tobacco Use Types Packs/Day Years [...] any clubs o r organizations such as episcopal groups, unions, fraternal or athletic groups, or [...] Answer Date Recorded PHQ-2 Score 0 07/19/2023 [facility] - Occupational Stress Questionnaire Answer [...] place to sleep or slept in a long-term (including now)? No 10/02/2022 Nutrition Answer Date Recorded Nutrition: EVOO Fat Source No 10/02 On average, how many serving s of fruits and vegetables do you eat per day (serving size is equal to 1 cup or approximately the size of a tennis ball)? 2-3 10/02/2022 Dental Answer Date Recorded Dental: Regular Dentist Yes 08/25/19 21 Employment Answer Date Recorded Employment status Retired 10/02/2022 Education Answer Date Recorded What is the highest level of school you have completed or the highest degree you have received? Professional school degree (e.g., MD, ROSSY, DVM, TIFFANIE) 12/07/2018 Sex and Gender [...] Comprehensive Visit Department of Rehabilitation Services in [address] [phone] Arpan Alejo M.D. [address] [place] [phone] Nicolasa Eller, PMaximeTMaxime [address] [place] [phone] Scheduled Orders Name Type Priority Associated Diagnoses Orde r Schedule REHAN MOHS 1-4 sites Dermatology Routine 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) Expected: 08/06/2023 (Approximate), Expires: 11/03/2024 documented as of this encounter Visit Diagnoses Diagnosis 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)- Primary documented in this encounter Care Teams Marketing Research Intern Relationship Specialty Start Date End Date Hector Sandhu M.D., Ph.D. [address] [place] [phone] PCP - General Family Medicine 04/17/19 documented as of this encounter
--- OUTSIDE RECORDS SUMMARY | 2023-11-03 08:02 | XMS_ITS | Encounter Summary ---
Author Name Unknown Organization [facility] Address [address] [place] [address] Care Team Providers Care Associate Professor Of Engineering Name Role Phone Hector Sandhu M.D., Ph.D. Primary Care Provider Reason for Referral * Outpatient (Routine) - Closed Specialty Diagnoses / Procedures Referred By Gunnar stern Referred To Contact Dermatology Werner Nation M.B.B.S., M.D. [address] [place] [phone] [facility] Referral ID Status Reason Start Date Expiration Date Visits Re quested Visits Authorized [id number] Closed 08/06/2023 02/04/2025 1 1 PRESIDENT OF INSTRUCTION Encounter Details Date Type Department Care Team (Late st Contact Info) Description 08/06/2023 Orders Only Department of Dermatology in [place], [place] [address] [place] [phone] Werner Nation M.B.B.S., M.D. [address] [place] [phone] Social History Tobacco Use Types Packs/Day Years [...] often do you attend chur ch or christianity services? Never 10/02/2022 Do you belong to any clubs o r organizations such as congregational groups, unions, fraternal or athletic groups, or [...] Answer Date Recorded PHQ-2 Score 0 07/19/2023 [facility] - Occupational Stress [...] money to buy more. Never true 10/03/19 Within the past 12 months, t he [...] place to sleep or slept in a detention (including now)? No 10/02/2022 Nutrition Answer Date [...] have received? Professional school degree (e.g., MD, RIDGES, DVM, TIFFANIE) 12/07/2018 Sex and Gender [...] Comprehensive Visit Department of Rehabilitation Services in [address] [phone] Arpan Alejo M.D. [address] [place] [phone] Nicolasa Eller, P.T. [address] [place] [phone] Scheduled Referrals Name Type Priority Associated Diagnoses Order Schedule Dermatology office visit (clinic) Outpatient Referral Routine Expected: 08/06/2023 (Approximate), Expires: 11/03/2024 documented as of this encounter Visit Diagnoses Not on filedocumented in this encounter Care Teams Associate Professor Of Engineering Relationship Specialty Start Date End Date Hector Sandhu M.D., Ph.D. [address] [place] [phone] PCP - General Family Medicine 04/17/19 documented as of this encounter
[2023-11-03] MEDS: ACETAMINOPHEN 500 MG TABLET 1000 MG PO ×2 (08:16→17:32)
[2023-11-03] MEDS: OXYCODONE (CR) 10 MG TAB.ER.12H PO (08:16)
[2023-11-03] MEDS: LACTATED RINGERS 1000 ML 1,000 ML 100 ML IV ×3 (08:20→12:26)
[2023-11-03] MEDS: SODIUM CHLORIDE 0.9 % (FLUSH) 10 ML SYRINGE IVF (08:42)
--- NOTE | 2023-11-03 08:56 | XR_ITS ---
Patient: CATIA JERSON Facility:?[facility] Patient ID:?[id number] Site Patient ID:?[id number]. Site :?[id number] Study:?XRay-Hip Left POST OP HIP AND PELVIS-11/03/2023 1:48:30 PM Ordering Physician:BEAR Final Report: Indication: LT POST OP JEFRY Technique: AP hip centered pelvis and lateral view left hip Findings/Impression: Hardware from a left total hip arthroplasty is in satisfactory position. Bone alignment is normal. No sign of acute fracture. Postop changes are within normal limits. Dictated by Catia Weiss MD @ 11/04/2023 9:56:53 AM Signed by:?Catia Weiss MD @11/04/2023 9:56:53 AM (Electronic Signature)
--- NOTE | 2023-11-03 09:05 | W.PM.H&PU ---
History & Physical Update History & Physical Update H&P Reviewed and patient assessed: No changes noted
--- NOTE | 2023-11-03 09:17 | SUR.PREOP ---
TIME?OUT:?0957 PT/RN/MDA?VERIFICATION?OF?SURGICAL?SITE Left Hip,?PROCEDURE Nerve Block,?AND?CONSENT OBTAINED?PRIOR?TO?INVASIVE?PROCEDURE.
--- NOTE | 2023-11-03 09:55 | XR_ITS ---
Patient: CATIA ANDREWSON Facility:?[facility] Patient ID:?[id number] Site Patient ID:?[id number]. Site :?[id number] Study:?XRay-Hip Left INTRA OP LT JEFRY-11/03/2023 12:19:44 PM Ordering Physician:BEAR Final Report: Indication: Hip replacement surgery Technique: AP hip fluoroscopic image. Fluoroscopy time 60.3 seconds. Findings/Impression: Hardware from a left total hip arthroplasty is in satisfactory position. Dictated by Catia Weiss MD @ 11/03/2023 12:45:24 PM Signed by:?Catia Weiss MD @11/03/2023 12:45:24 PM (Electronic Signature)
[2023-11-03] MEDS: fentaNYL 100 MCG/2 ML inj IVP (09:57)
[2023-11-03] MEDS: MIDAZOLAM HCL 1 MG/ML inj IVP (09:57)
[2023-11-03] MEDS: CEFAZOLIN 2 GM in 0.9 % SODIUM CHLORIDE Mini-bag 100 ML IVPB ×2 (10:22→17:33)
[2023-11-03] MEDS: TRANEXAMIC ACID 100 MG/ML INJ 1000 MG IV (10:25)
--- NOTE | 2023-11-03 10:54 | SUR.OPER ---
PATIENT QUESTIONS ANSWERED SATISFACTORILY PREOPERATIVELY. PATIENT BROUGHT TO OR #3 PER CART AFTER ADMINISTRATION OF A BLOCK. Patient positioned supine on OR #3 bed. The perioperative team supported arms bilaterally on arm boards. Final approval of positioning by surgeon.
--- NOTE | 2023-11-03 11:24 | P.NB_ITS ---
Nerve Block Nerve Block Time Seen by Provider: 10:00 Date Seen: 11/03/23 Type of block requested by surgeon for post-operative analgesia: ELI/LFCN Side: left Time out performed: Yes Verification of patient name: Yes Verification of date of : Yes Site marking: site marked Name of person performing procedure: Ovidio Continuous monitoring Was continuous monitoring of O2 sat, B/P, secured entrance monitor, recorded every 15 minutes?: Yes Procedure Checklist: sterile prep, needles and gloves Ultrasound guided. Images saved: Yes Medications given in 5ml increments after negative aspiration: Ropivicaine %: 0.5 mL: 30 Needle gauge: 20 Decadron (mg): 10 Precedex (mcg): 25 Patient tolerated procedure well: Yes Additional comments: Needle noted below psoas tendon needle noted adjacent to LFCN Block Charges Block Charge (with Pro Fee): Other Periph Nerve Block Use of Ultrasound Machine for Block: Yes- US Guidance/pain block
--- NOTE | 2023-11-03 11:25 | W.ANESCHARGE ---
Anesthesia Charges Start Date/Time Anesthesia Start Date: 11/03/23 Anesthesia Start Time: 10:09 Stop Date/Time Anesthesia Stop Date: 11/03/23 Anesthesia Stop Time: 12:53 Summary Extremes of Age - Over 70 or under 1: MDA
--- NOTE | 2023-11-03 12:07 | PM.ORPRC ---
Procedure Note Date of procedure: 11/03/23 Procedure: PREOPERATIVE DIAGNOSIS: 1. Left hip osteoarthritis, severe, primary POSTOPERATIVE DIAGNOSIS: 1. Left hip osteoarthritis, severe, primary PROCEDURE: 1. Left total hip arthroplasty-anterior approach 2. 59113 - intraoperative fluoroscopy up to 1 hour. SURGEON: Jay Nassar MD. VP SOFTWARE ENGINEERING: Wilber Stephens PA-C; STEFFANIE Clemente - Of note, a skilled certified nursing assistant instructor was critical for this case to aid in patient positioning, tissue retraction, limb manipulation/positioning, dislocation/relocation, patient safety, and closure. ANESTHESIA: General endotracheal anesthetic EBL: 700 mL IMPLANTS: DePuy J&J uncemented total hip [place] cup size 56, hole eliminator, +4 neutral liner Actis stem, high offset, size 10 +1.5 mm ceramic 36 mm head. COMPLICATIONS: None evident INDICATIONS: The patient is a pleasant 73-year-old male who has experienced severe left hip pain and difficulty bearing weight. Workup included x-rays which revealed severe osteoarthrosis in the hip. Given the deformity, the dysfunction, and the pain, as well as the failure of nonoperative management, recommendation was made for surgery. FINDINGS: Full-thickness chondral loss throughout the femoral head and acetabulum. Large osteophytes around the perimeter of the acetabulum and femoral head/neck junction. Moderate effusion upon entering the joint. DESCRIPTION OF PROCEDURE: Following a thorough discussion of risks, benefits, and alternatives consent was obtained and the left hip was marked. The patient was brought to the operating room and placed supine on the operating table. Induction of anesthesia was undertaken. 2 g IV Ancef and 1 g tranexamic acid was administered within 1 hr of incision preoperatively. Proper time-out was performed identifying proper patient, site, procedure. The operative extremity was prepped and draped in the appropriate sterile fashion using ChloraPrep after the patient was positioned on the [place] table with head in neutral alignment and all bony prominences well padded. C-arm fluoroscopic imaging was utilized to confirm proper pelvis rotation and position, and to get true AP films of both the contralateral left, and the affected left hip. This is for comparison. A longitudinal incision was made starting approximately 1 cm distal to the ASIS, and 3-4 cm lateral. The incision was extended distally aiming toward the lateral border the patella. Sharp incision through skin and bovie cautery through the subcutaneous tissue allowed identification of the TFL fascia. This was sharply divided, and the fascia bluntly released from the muscle fibers as we dissected medial. Upon coming to the medial border, we were able to retract the TFL laterally, and penetrated the deeper fascia and identify the crossing circumflex vessels. These were ligated/cauterized. The rectus was elevated from the capsule, and retractors placed laterally and medially along the femoral neck to help with visualization of the capsule. We then performed an inverted T capsulotomy. The capsule was tagged for later repair. Retractors were placed inside the capsule. The femoral neck was visualized after releasing medially down to the lesser trochanter, along the saddle laterally, and up onto the acetabulum. The femoral neck cut was made in line with our preoperative templating. The head was removed in a single piece, and sized. We turned our attention to acetabular preparation. Initially, the labrum was resected from around the perimeter, the pulvinar was excised, allowing us to visualize the false wall. We started the reaming with a 43 mm reamer. This was medialized down to the true wall. We then enlarged our reamers sequentially up to one size less than the selected cup size. We trialed at the same size and found it to have an excellent fit. The selected cup was then opened, inserted, and impacted in line with the goal of 40-45? of abduction, and 20-25? of anteversion. This was confirmed on C-arm fluoroscopic imaging to be in the appropriate/goal position. Once the cup was placed we placed a hole eliminator and a liner consistent with preop planning. Attention was turned to the femoral preparation. The limb was extended, externally rotated, and adducted. The posteromedial capsule was released, as retractors were placed allowing excellent access to the proximal femur. Initially a box truck washer was followed by canal finder followed by various broaches. We broached sequentially up to size noted above, found it to have excellent rotational control, and trialing various heads and necks, revealed that appropriate neck offset, and the above noted head size provided the greatest stability, and worship of length, and offset. C-arm fluoroscopic imaging confirmed position of the stem, as well as leg lengths, which were compared with the pre procedure all fluoroscopic images. Trial implants were removed, the real femoral stem inserted, as was the ceramic head. After reducing, the leg was placed through range of motion and stability was confirmed anterior, posterior, and lateral. A 3 min Betadine soak was then performed, and thorough irrigation with normal saline followed. Closure of the capsule was performed with #1 PDS. Bleeding was confirmed to be controlled at this stage, and the TFL fascia was closed with #0 strata fix. Subcutaneous, and subcuticular closure was performed with 2-0 Vicryl and 4-0 Monocryl, respectively. Dressings were applied, and the patient was awoken from anesthesia and transferred the PACU in stable condition. A skilled certified nursing assistant instructor was critical for this case to aid in patient positioning, tissue retraction, proximal femur exposure, limb manipulation/positioning, dislocation/relocation, patient safety, and closure. PLAN: 1. Weight bear as tolerated operative extremity. 2. 23 hr perioperative antibiotics. 3. Ice. 4. PT/OT consults for ambulation assistance/mobility education. 5. Social work consult for discharge planning. 6. DVT prophylaxis with at SCDs and Xarelto x5 days followed by aspirin for a total of 1 month..
[2023-11-03] MEDS: fentaNYL 100 MCG/2 ML inj 50 MCG IVP ×2 (12:50→13:07)
--- NOTE | 2023-11-03 13:01 | P.ANES_ITS ---
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
[2023-11-03] MEDS: HYDROmorphone 0.5 mg/0.5 ml inj IVP ×2 (13:27→14:09)
--- NOTE | 2023-11-03 13:57 | SUR.PHASEI ---
patient met discharge criteria per anesthesia
[2023-11-03] MEDS: hydrOXYzine pamoate 25 MG CAPSULE PO (14:10)
[2023-11-03] MEDS: OXYCODONE 5 MG TABLET PO ×3 (14:30→21:56)
[2023-11-03] MEDS: LACTATED RINGERS 1000 ML 1,000 ML 75 ML IV (14:30)
--- NOTE | 2023-11-03 15:11 | P.IMCN_ITS ---
Date of Consult Patient: Other Consult date: 11/03/23 Primary Care Provider: Hector Sandhu MD ([facility]) Consult Narrative Reason for consult: Medical management of comorbidities Narrative: Delroy Nelson is a 73 year old male who presented to the hospital today for an elective LTHA. There were no surgical or anesthetic complications noted during procedure. Patient's H&P reviewed, PCP is Hector Sandhu at [facility] in [place]. Past medical history significant for: hyperlipidemia, arthritis History of blood clots: No Postoperative plan: Home with Upon arriving to the floor, Delroy has quite a bit of pain. It is improving after medication administration. No other concerns for hospitalist team. Review of Systems Status of ROS: Reports: 10 or more systems reviewed and unremarkable except as noted in History and below [facility] Medical History Varicella ?B01.9 - Varicella without complication (ICD-10) Mumps ?B26.9 - Mumps without complication (ICD-10) Measles ?B05.9 - Measles without complication (ICD-10) Depressive disorder ?F32.A - Depression, unspecified (ICD-10) Pituitary adenoma (2000) ?D35.2 - Benign neoplasm of pituitary gland (ICD-10) Surgical History (Updated 11/03/23 @ 15:34 by Marilia Aranda MD) H/O hernia repair ?Z98.890 - Other specified postprocedural states (ICD-10) ?Z87.19 - Personal history of other diseases of the digestive system (ICD-10) History of arthroscopy of right knee (~2019) ?Z98.890 - Other specified postprocedural states (ICD-10) History of tonsillectomy ?Z90.89 - Acquired absence of other organs (ICD-10) Social History (Updated 06/17/23 @ 13:56 by Haley Bowers ~ [facility], [facility]) Narrative: -Maritza What is your current living situation?: I presently have a place to live Smoking Status: Never smoker Do you use any of these nicotine containing products: None Second hand tobacco smoke exposure: No How often do you have a drink containing alcohol: 2-3 times a week How many standard drinks containing alcohol do you have on a typical day: 1 or 2 How often do you have six or more drinks on one occasion: Never AUDIT-C Alcohol total score: 3 Non-prescribed substance use: denies use Caffeine: Yes Meds Home Medications and Allergies Home Medications Medication Instructions Recorded Confirmed Type acetaminophen 500 mg capsule 1,000 mg PO Q6H PRN 06/17/23 11/03/23 History ibuprofen 200 mg tablet 400 mg PO Q8H PRN 06/17/23 11/03/23 History rosuvastatin 10 mg tablet 10 mg PO QPM 06/17/23 11/01/23 History tadalafil 5 mg tablet 5 mg PO DAILY 06/17/23 11/03/23 History Allergies Allergy/AdvReac Type Severity Reaction Status Date / Time bee venom protein (honey bee) Allergy Anaphylaxis Verified 11/01/23 13:05 Exam Narrative: Exam Narrative: GEN: Alert and oriented, nontoxic HEENT: EOMIs bilaterally, no scleral icterus CV: RRR, No concerning murmurs R: LCTA bilaterally without concerning wheezing Skin: No concerning skin lesions or rashes on exposed skin Neuro: Nonfocal Psych: Appropriate Const: Vital Signs, click to edit/add: Vital Signs - 24 hr 11/03/23 08:35 11/03/23 09:57 11/03/23 10:00 Temperature 98.0 F Pulse Rate 62 61 58 L Respiratory Rate 16 16 16 Blood Pressure 133/82 102/65 101/63 Pulse Oximetry 98 98 98 Oxygen Delivery Me thod Room Air Nasal Cannula Nasal Cannula Oxygen Flow Rate 2 2 11/03/23 10:05 11/03/23 12:49 11/03/23 12:55 Temperature 97.1 F L 97.1 F L Pulse Rate 60 64 63 Respiratory Rate 16 12 13 Blood Pressure 102/72 71/41 L 73/42 L Pulse Oximetry 98 95 94 Oxygen Delivery Me thod Nasal Cannula Nasal Cannula Nasal Cannula Oxygen Flow Rate 2 1 1 11/03/23 13:00 11/03/23 13:05 11/03/23 13:10 Temperature 97.1 F L 97.1 F L 97.1 F L Pulse Rate 56 L 58 L 58 L Respiratory Rate 13 14 14 Blood Pressure 95/52 L 111/71 111/71 Pulse Oximetry 100 100 100 Oxygen Delivery Me thod Nasal Cannula Nasal Cannula Nasal Cannula Oxygen Flow Rate 2 2 2 11/03/23 13:15 11/03/23 13:20 11/03/23 13:25 Temperature 97.1 F L 97.1 F L 97.1 F L Pulse Rate 65 63 62 Respiratory Rate 12 12 12 Blood Pressure 113/68 115/72 116/74 Pulse Oximetry 100 100 98 Oxygen Delivery Me thod Nasal Cannula Nasal Cannula Nasal Cannula Oxygen Flow Rate 2 2 2 11/03/23 13:30 11/03/23 13:35 11/03/23 13:40 Temperature 97.1 F L 97.1 F L 97.1 F L Pulse Rate 63 65 61 Respiratory Rate 14 12 12 Blood Pressure 112/59 L 116/72 115/78 Pulse Oximetry 98 100 98 Oxygen Delivery Me thod Nasal Cannula Nasal Cannula Room Air Oxygen Flow Rate 2 2 11/03/23 13:45 11/03/23 13:52 11/03/23 14:00 Temperature 97.6 F 96.0 F L Pulse Rate 63 60 62 Respiratory Rate 14 14 14 Blood Pressure 104/61 121/78 126/84 Pulse Oximetry 98 98 96 Oxygen Delivery Me thod Room Air Room Air Room Air Oxygen Flow Rate 2 11/03/23 14:16 11/03/23 14:32 11/03/23 14:46 Temperature Pulse Rate 63 67 64 Respiratory Rate 16 18 18 Blood Pressure 132/73 108/78 119/77 Pulse Oximetry 96 97 97 Oxygen Delivery Me thod Room Air Room Air Room Air Oxygen Flow Rate 2 2 2 Assessment and Plan Assessment and plan (1) Status post left hip replacement: Problem comment: - 11/03/23Cesario Status: Acute Plan - pain management and prophylaxis per orthopedic surgery team - continue home medications for comorbidities - anticipate routine postoperative course - updated at bedside, questions answered
--- NOTE | 2023-11-03 18:55 | PC.NURSE ---
End of shift-- pt is alert x4. she is Very pleasant and cooperative. pain was 8/10 on admission he is getting IV and po pain meds. . VSS and pt is afebrile. SPO2 maintained >93% on RA. Dressing to left hip is C/D/I. CMS WNL. is at bedside and is loving and supportive. he got up and voided.
[2023-11-03] MEDS: SENNOSIDES 1 TAB TABLET 2 TAB PO (21:55)
[2023-11-04] MEDS: CEFAZOLIN 2 GM in 0.9 % SODIUM CHLORIDE Mini-bag 100 ML IVPB (00:29)
[2023-11-04 02:39] VITALS: BP 118/67; PULSE 74; RESP 18; TEMP 36.6; O2SAT 98
[2023-11-04] MEDS: ACETAMINOPHEN 500 MG TABLET 1000 MG PO ×2 (02:40→07:35)
[2023-11-04 06:44] LABS: Hematocrit 35.9 % (37.0-53.0); Hemoglobin* 11.9 gm/dL (13.5-17.5); Immature Granulocytes Abs Auto 0.01 K/uL (0.00-0.30); Immature Granulocytes Pct Auto 0.1 %; Lymphocytes Percent Auto 12.1 % (20-44); Mean Corpuscular HGB Conc 33 gm/dL (32-36); Mean Corpuscular Hemoglobin 31 pg (26-34); Mean Corpuscular Volume 92 fL (80-100); Monocytes Percent Auto 10.3 % (0.0-11.0); Neutrophils Percent Auto 77.5 % (42.0-72.0); Platelet Count* 167 K/uL (140-440); RDW Coefficient of Variation % 12.7 % (11.5-15.5); Red Blood Count 3.89 m/uL (4.30-5.90); White Blood Count* 9.17 K/uL (4.50-11.00)
--- NOTE | 2023-11-04 06:47 | PC.NURSE ---
Shift note: Pt is doing well ambulating with A1, walker and GB. Dressing appeared clean and dry. Pt has not pass gas yet, Bowel sound active. Pain level rated at 5. Pt had adequate urine output. Saline lock.
[2023-11-04 06:49] LABS: Slide Review Reflex No
[2023-11-04 07:00] VITALS: BP 120/64; PULSE 83; RESP 16; TEMP 36.7; O2SAT 98
[2023-11-04 07:01] LABS: Potassium* 4.1 mmol/L (3.6-5.1); Sodium* 137 mmol/L (135-149)
[2023-11-04 07:04] LABS: Blood Urea Nitrogen* 18 mg/dL (7-30); Creatinine* 0.7 mg/dL (0.5-1.5); Est. Creatinine Clearance* 75.35; Estimated Glomerular Filt Rate 97 ml/min
[2023-11-04] MEDS: OXYCODONE 5 MG TABLET PO (07:35)
[2023-11-04] MEDS: SENNOSIDES 1 TAB TABLET 2 TAB PO (08:21)
[2023-11-04] MEDS: RIVAROXABAN 10 MG TABLET PO (08:21)
--- NOTE | 2023-11-04 09:51 | PM.ORPN ---
Subjective Subjective Date Seen: 11/04/23 Principal diagnosis: Status postop day 1, left total hip arthroplasty - anterior approach Interval history: Patient reports doing well. No acute events over night. Pain managed with scheduled and PRN medications, ice. DVT prophylaxis: Rivaroxaban, SCDs, walking. Denies fevers, chills, aches, N/V, CP, SOB/CH. Lightheadedness yesterday, now resolved. Ortho Exam Narrative Exam Narrative: -Patient appears comfortable in bed working with physical therapy; no apparent acute distress -Alert and oriented times 3 -Operative hip swollen; soft tissues supple; no obvious erythema. Ecchymosis minimal. Warmth appropriate -Surgical dressing clean, dry, intact; no obvious drainage, no erythematous streaking peripheral to the bandage -Bilateral calves soft and supple; no significant swelling, edema, tenderness, erythema, discoloration, warmth, or palpable cords -2+ DP/PT pulses, intact dermatomes and myotomes distally (5/5 strength). No numbness about the lateral femoral cutaneous nerve distribution. Const Vital Signs, click to edit/add: Vital Signs - 24 hr 11/03/23 09:57 11/03/23 10:00 11/03/23 10:05 Temperature Pulse Rate 61 58 L 60 Pulse Rate [Pulse Oximeter] Respiratory Rate 16 16 16 Blood Pressure 102/65 101/63 102/72 Blood Pressure [Left Arm] Pulse Oximetry 98 98 98 Oxygen Delivery Method Nasal Cannula Nasal Cannula Nasal Cannula Oxygen Flow Rate 2 2 2 11/03/23 12:49 11/03/23 12:55 11/03/23 13:00 Temperature 97.1 F L 97.1 F L 97.1 F L Pulse Rate 64 63 56 L Pulse Rate [Pulse Oximeter] Respiratory Rate 12 13 13 Blood Pressure 71/41 L 73/42 L 95/52 L Blood Pressure [Left Arm] Pulse Oximetry 95 94 100 Oxygen Delivery Method Nasal Cannula Nasal Cannula Nasal Cannula Oxygen Flow Rate 1 1 2 11/03/23 13:05 11/03/23 13:10 11/03/23 13:15 Temperature 97.1 F L 97.1 F L 97.1 F L Pulse Rate 58 L 58 L 65 Pulse Rate [Pulse Oximeter] Respiratory Rate 14 14 12 Blood Pressure 111/71 111/71 113/68 Blood Pressure [Left Arm] Pulse Oximetry 100 100 100 Oxygen Delivery Method Nasal Cannula Nasal Cannula Nasal Cannula Oxygen Flow Rate 2 2 2 11/03/23 13:20 11/03/23 13:25 11/03/23 13:30 Temperature 97.1 F L 97.1 F L 97.1 F L Pulse Rate 63 62 63 Pulse Rate [Pulse Oximeter] Respiratory Rate 12 12 14 Blood Pressure 115/72 116/74 112/59 L Blood Pressure [Left Arm] Pulse Oximetry 100 98 98 Oxygen Delivery Method Nasal Cannula Nasal Cannula Nasal Cannula Oxygen Flow Rate 2 2 2 11/03/23 13:35 11/03/23 13:40 11/03/23 13:45 Temperature 97.1 F L 97.1 F L 97.6 F Pulse Rate 65 61 63 Pulse Rate [Pulse Oximeter] Respiratory Rate 12 12 14 Blood Pressure 116/72 115/78 104/61 Blood Pressure [Left Arm] Pulse Oximetry 100 98 98 Oxygen Delivery Method Nasal Cannula Room Air Room Air Oxygen Flow Rate 2 11/03/23 13:52 11/03/23 14:00 11/03/23 14:16 Temperature 96.0 F L Pulse Rate 60 62 63 Pulse Rate [Pulse Oximeter] Respiratory Rate 14 14 16 Blood Pressure 121/78 126/84 132/73 Blood Pressure [Left Arm] Pulse Oximetry 98 96 96 Oxygen Delivery Method Room Air Room Air Room Air Oxygen Flow Rate 2 2 11/03/23 14:32 11/03/23 14:45 11/03/23 14:46 Temperature Pulse Rate 67 69 64 Pulse Rate [Pulse Oximeter] Respiratory Rate 18 18 18 Blood Pressure 108/78 119/77 119/77 Blood Pressure [Left Arm] Pulse Oximetry 97 97 97 Oxygen Delivery Method Room Air Room Air Room Air Oxygen Flow Rate 2 2 2 11/03/23 15:00 11/03/23 15:30 11/03/23 16:00 Temperature Pulse Rate 65 67 67 Pulse Rate [Pulse Oximeter] Respiratory Rate 18 18 18 Blood Pressure 116/75 102/53 L 127/79 Blood Pressure [Left Arm] Pulse Oximetry 95 95 95 Oxygen Delivery Method Room Air Room Air Room Air Oxygen Flow Rate 2 2 11/03/23 17:11 11/03/23 18:00 11/03/23 19:00 Temperature 96.5 F L 97 F L Pulse Rate 78 70 82 Pulse Rate [Pulse Oximeter] Respiratory Rate 18 18 18 Blood Pressure 125/69 112/69 115/65 Blood Pressure [Left Arm] Pulse Oximetry 94 95 95 Oxygen Delivery Method Room Air Room Air Room Air Oxygen Flow Rate 2 2 11/03/23 20:02 11/03/23 22:02 11/04/23 02:39 Temperature 97.8 F 97.8 F 97.8 F Pulse Rate 71 Pulse Rate [Pulse Oximeter] 73 74 Respiratory Rate 18 18 18 Blood Pressure 105/69 Blood Pressure [Left Arm] 125/69 118/67 Pulse Oximetry 98 98 98 Oxygen Delivery Method Room Air Room Air Room Air Oxygen Flow Rate 2 Assessment and Plan Assessment and plan (1) Status post left hip replacement: Problem details: - 11/03/23Cesario Status: Acute Plan - Complete 23 hour perioperative antibiotics. - PT/OT consult for education and assistance. - Social work consult for discharge planning - Prescribed analgesics as needed - DVT prophylaxis: Rivaroxaban and SCDs - Anticipation is for discharge to home with spouse 11/04/2023 if the patient remains medically stable, pain is controlled, and they are safe with mobilization.
--- NOTE | 2023-11-04 10:59 | PC.NURSE ---
Nursing discharge note: Pt is A&O, VSS and afebrile today. He is SBA with 2ww for ambulation and transfers. Adequate PO intake and U/O. Pt rates pain at 1/10 at rest and 6/10 with movement. PRN oxycodone given last @ 0735. Pt denies having any nausea, dizziness or lightheadedness. Anterior left hip surgical dressing C/D/I with active ice in place. IV discontinued from right FA, catheter intact. Discharge education reviewed with patient and his who both verbalized understanding. Pt discharged home with his via W/C @ 7931.
== END 2023-11-04 10:50 | disposition home or self-care (01) ==
LOC: OR 07:55 → MEDSURG 07:59
PROVIDERS: PCP Family Medicine; Visit Provider Orthopaedic Surgery Sports Medicine
PROC: (CPT 27130; principal; 2023-11-03 10:15)
DX: M16.12 Unilateral primary osteoarthritis, left hip (principal); G89.18 Other acute postprocedural pain; R42 Dizziness and giddiness
CPT/HCPCS: 27130; 01214; 36415; 64450; 73501; 76000; 76942; 82565; 84132; 84295; 84520; 85025; 86850; 86900; 86901; 97110; 97116; 97161; 97165; 99100; A9270; C1776; J0690; J1100; J1170; J2250; J2371; J2405; J2704; J2710; J2795; J3010; J7120